=== PATIENT | female | born 1955 | race Caucasian/White ===

== ENCOUNTER → 2017-12-02 10:00 | Outpatient (POV) | payer SELFPAY | PROVIDERS: Family Provider Nurse Practitioner; PCP Family Medicine; Visit Provider Otolaryngology | DX: Z00.00 Encounter for general adult medical examination without abnormal findings (principal) ==

== ENCOUNTER → 2018-03-30 12:05 | Outpatient (CLI) | payer MEDICARE, OTHER, SELFPAY ==
--- NOTE | 2018-03-30 12:18 | XR_ITS ---
XR cervical spine 5V Ordering Physician: Lisette Walsh Patient Age: 62 years: Female HISTORY: ITS.REASON: CERVICAL NECK PAIN . HISTORY of stroke TECHNIQUE: Five-view cervical spine series. None COMPARISON : None available for comparison FINDINGS Cervical vertebral bodies are intact and the disc spaces are fairly well maintained with only borderline narrowing posteriorly at C5/6. The neural foramen widely patent on the delayed views but no significant foraminal encroachment from spurring. Prevertebral soft tissues normal. Normal alignment. Facets appear satisfactory. C1-C2 relationships normal. Dens intact. . Apices the lungs clear. IMPRESSION: ... Cervical spine intact . No significant findings. Only Borderline narrowing at posterior aspect C5-6 disc
--- NOTE | 2018-03-30 12:18 | XR_ITS ---
XR lumbar spine min 4V Ordering Physician: Lisette Walsh Patient Age: 62 years: Female HISTORY: ITS.REASON: LUMBAR BACK PAIN TECHNIQUE: 5 view lumbar spine series COMPARISON :None FINDINGS The lumbar vertebral bodies overall appear intact with no significant findings. Subtle superior endplate cavity L2 most likely merely reflects Schmorl's node rather than old superior endplate compression. The disc spaces are well-maintained throughout lumbar region. At L5 incomplete closure of the posterior elements. Spina bifida occult merely Anatomical variant. On the oblique views the pars interarticularis region somewhat elongated and it difficult to totally exclude a pars defect particularly on the right at L5. However most likely pars intact bilaterally. & There is no listhesis Mild degenerative facet changes seen at L4/5 L5/S1. Sacrum pedicles SI joints transverse processes unremarkable. IMPRESSION: Lumbar vertebral bodies overall intact with normal alignment. Disc spaces well-maintained. Minor observations noted in text.
--- NOTE | 2018-03-30 12:18 | XR_ITS ---
XR thoracic spine 3V Ordering Physician: Lisette Walsh Patient Age: 62 years: Female HISTORY: ITS.REASON: THORACIC BACK PAIN TECHNIQUE: AP lateral and swimmer's view thoracic spine COMPARISON :L-spine and C-spine from today FINDINGS . The vertebral bodies are intact. No compression fracture or lesion. The disc spaces are actually fairly well-maintained throughout T-spine. Mild accentuated kyphosis Mild Anterior marginal osteophytes throughout T-spine reflecting developing degenerative & aging changes. It most evident marginal osteophytes seen anteriorly into seen to the right at T8-9 which serves as a reference point. Small rheumatoid 12 ribs. IMPRESSION: . T-spine intact. No fracture Only minimal degenerative changes .
== END ==
PROVIDERS: PCP Nurse Practitioner; Visit Provider Nurse Practitioner
DX: M54.2 Cervicalgia (principal); M54.5 Low back pain; M54.6 Pain in thoracic spine
CPT/HCPCS: 72050; 72072; 72110

== ENCOUNTER → 2018-05-14 12:43 | Outpatient (CLI) | payer MEDICARE, OTHER, SELFPAY ==
--- NOTE | 2018-05-14 12:46 | MR_ITS ---
MR lumbar spine wo con, MR 3-d myelogram/MRCP HISTORY: LBP XYRS ago. Numbness in LT leg/ No HX back surgery. ITS.REASON: LUMBAR PAIN, THORACIC PAIN ORDERING PHYSICIAN: Lisette Walsh PATIENT AGE: 62 years Comparison: X-RAY 03-30-18 TECHNIQUE: Standard multiplanar multiecho sequences are performed without contrast. 3-D MIP and myelographic images are also rendered and reviewed FINDINGS: There is normal alignment. Spinal cord ends at the T12-L1 level. L1-L2: Unremarkable. L2-L3: Unremarkable. L3-L4: Minimal disc desiccation with slight decrease in the disc space. L4-5: Unremarkable. L5-S1: Unremarkable. Spina bifida occulta noted as seen on the plain films. No evidence of spondylolisthesis or spondylolysis. No disc herniation or canal stenosis. IMPRESSION: 1. Minimal degenerative disc disease L3-L4. 2. Otherwise essentially negative MRI of the lumbar spine
--- NOTE | 2018-05-14 12:46 | MR_ITS ---
MR thoracic spine wo con HISTORY: Mid back pain with popping. Pain starts in abdomen and goes to back. XYRS. ITS.REASON: LUMBAR PAIN, THORACIC PAIN ORDERING PHYSICIAN: Lisette Walsh PATIENT AGE: 62 years Comparison: X-RAY 03-30-18 TECHNIQUE: Standard multiplanar multiecho sequences are performed without contrast. 3-D MIP and myelographic images are also rendered and reviewed FINDINGS: There is normal alignment. No fracture or dislocation. No canal stenosis. No disc herniation. No bony destructive process. Small osteophytes are present in the mid thoracic spine anteriorly toward the right.. There is mild thoracic kyphosis is slightly exaggerated. Spinal cord has an unremarkable appearance. IMPRESSION: 1. No acute finding. No canal stenosis or disc herniation. No acute fracture. 2. There are small anterior lateral osteophytes toward the right with mild exaggeration of the thoracic kyphosis
== END ==
PROVIDERS: PCP Nurse Practitioner; Visit Provider Nurse Practitioner
DX: M54.6 Pain in thoracic spine (principal); M54.5 Low back pain
CPT/HCPCS: 72146; 72148; 76376

== ENCOUNTER 2020-03-26 19:49 | Inpatient (IN) | payer MEDICARE, OTHER, SELFPAY ==
[2020-03-26] VITALS (11 sets, daily range): BP systolic 95–131; BP diastolic 27–73; PULSE 101–107; RESP 14–17; TEMP 35.8–36.2; O2SAT 90–100; BMI 32.8; BMI 33.9
--- NOTE | 2020-03-26 20:02 | CT_ITS ---
PROCEDURE: CT HEAD/BRAIN WO CON CLINICAL INDICATION: AMS Altered mental status, altered level of consciousness, confusion, disorientation COMPARISON: CT HEADWO CT head/brain wo con from 07/17/2017 TECHNIQUE: Axial images obtained. All CT scans at the facility use one or more dose reduction, viz: automated exposure control, ma/kV adjustment per patient size (including targeted exams where dose is matched to indication, i.e. head), or iterative reconstruction technique. FINDINGS: No midline shift, mass effect, intracranial hemorrhage, hydrocephalus, or extra-axial fluid collection is evident. There is an old lacunar infarction in the subinsular region on the right with encephalomalacia change of the right temporal lobe as well as an old infarction of the right calabrese radiata with mild asymmetrical enlargement of the right ventricle felt to be due to the underlying volume loss. There is some calcification in the basal ganglia on the right. The calvarium has an unremarkable appearance. No mastoid effusion. No sinus air-fluid level. IMPRESSION: 1. Atrophy with chronic ischemic changes. 2. No acute finding. Dictated by: Tremayne De La Torre MD 03/27/2020 06:01 Tremayne De La Torre MD in [place] 03/27/2020 06:01
--- NOTE | 2020-03-26 20:02 | XR_ITS ---
PROCEDURE: XR CHEST PORTABLE CLINICAL HISTORY: AMS Altered mental status COMPARISON: CR CXR1 CHEST-PORTABLE from 01/28/2015 CR CXR1VP XR chest portable from 07/17/2017 CR CXR1VP XR chest portable from 07/17/2017 FINDINGS: Mild cardiomegaly. CABG. There is vague increased density in the right upper lobe within the apex. Developing mass or pneumonia is considered. Upright PA and lateral chest may provide further evaluation. This could also be due to summation artifact. There are atelectatic changes in the right lung base with slightly elevated right hemidiaphragm. No acute bony abnormalities. IMPRESSION: Vague increased density in the right apex which could be due to artifact pneumonia or mass. Upright PA and lateral chest may provide further evaluation. If the patient cannot stand then chest CT would be of further value. Right basilar atelectasis Dictated by: Tremayne De La Torre MD 03/27/2020 05:28 Tremayne De La Torre MD in [facility] 03/27/2020 05:28
--- NOTE | 2020-03-26 20:05 | ECG_ITS ---
APPROVED REPORT Exam: Resting ECG HR:107 bpm ECG Measurements Heart Rate 107 AXES AL 164 P 45 QRSd 94 QRS -49 QT 384 T 49 QTc 512 Conclusion Sinus tachycardia Left anterior fascicular block Left atrial abnormality Poor R wave progression with LVH criteria, unchanged from prior Abnormal ECG Electronically signed by : Hugo Dorman, 03/27/2020 19:10:11
[2020-03-26 20:11] LABS: Microscopic, Urine URINE MICROSCOPIC (MICROSCOPIC)
[2020-03-26 20:12] LABS: Appearance,Urine CLOUDY (Clear); Blood, Urine 1+ (Negative); Color,Urine YELLOW (Yellow); Glucose,Urine (UA) 3+ (Negative); Ketones,Urine 2+ (Negative); Leukocyte Esterase,Urine 1+ (Negative); Nitrate,Urine Negative (Negative); PH,Urine 5.5 (5.0-8.5); Protein,Urine 1+ (Negative); Specific Gravity, Urine 1.025 (1.005-1.030); Urobilinogen,Urine 0.2 EU/dl (0.2)
[2020-03-26 20:17] LABS: Bilirubin,Urine Negative (Negative)
[2020-03-26 20:18] LABS: WBC,Urine TNTC #/hpf (0-3)
[2020-03-26 20:22] LABS: ABG Base Excess -23.7 mmol/L (-2.4-2.3); ABG HCO3 4.9 mmhg (22.0-26.0); ABG Oxygen Saturation 97 % (90-100); ABG PCO2 14.1 mmhg (35.0-45.0); ABG PH 7.16 mmol/L (7.35-7.45); ABG PO2 104.2 mmhg (80-100); ABG TCO2 5.4 mmhg (23-27); Allen's Test Y; Oxygen R/A %; Source R/R
[2020-03-26 20:30] LABS: Basophils # 0.1 K/mm3 (0-0.2); Basophils % 0.3 % (0.1-2.0); Hematocrit 59.7 % (37.0-47.0); Hemoglobin 16.7 g/dL (12.2-16.2); Lymphocytes # 1.6 K/mm3 (0.7-4.5); Lymphocytes % 7.3 % (10-50); Mean Corpuscular Hemoglobin 29.5 pg (27.0-31.2); Mean Corpuscular Volume 105.5 fl (81-99); Mean Platelet Volume 11.4 fl (7.4-10.4); Monocytes # 1.3 K/mm3 (0.1-1.0); Monocytes % 5.8 % (1.7-9.3); Neutrophils # 18.7 K/mm3 (1.8-7.8); Neutrophils % 86.5 % (37.0-80.0); Platelet Count 411 K/mm3 (142-424); Red Blood Count 5.66 M/mm3 (4.20-5.40); White Blood Count 21.6 K/mm3 (4.8-10.8)
[2020-03-26 20:37] LABS: Acetone, Serum (Rapid) Detected (None Detect); Chloride 86 mmol/L (98-107); Sodium 135 mmol/L (136-145)
[2020-03-26 20:38] LABS: Potassium 4.4 mmoL/L (3.5-5.1)
[2020-03-26 20:38] LABS: Lactic Acid 3.5 mmol/L (0.7-2.1)
[2020-03-26 20:39] LABS: MANUAL DIFFERENTIAL MANUAL DIFFERENTIAL (MANUAL DIFF)
[2020-03-26 20:40] LABS: Alanine Aminotransferase 24 U/L (12-78); Albumin Level 4.5 g/dl (3.5-5.0); Albumin/Globulin Ratio 1.5 (1.1-1.8); Alkaline Phosphatase 238 U/L (38-126); Aspartate Amino Transferase 26 U/L (14-36); Bilirubin,Total 0.8 mg/dl (0.2-1.3); Blood Urea Nitrogen 40 mg/dl (7-17); Calcium 9.9 mg/dl (8.4-10.2); Creatinine Clearance Estimated 30 mL/min (50-200); Estimated Glomerular Filt Rate 16 ml/min (>60); GFR (African American) 20 ML/MIN (>60); Total Protein,Serum 7.5 g/dl (6.3-8.2)
[2020-03-26 20:47] LABS: C-Reactive Protein 61.7 mg/L (0-4)
[2020-03-26 20:48] LABS: Coronavirus 19 IgG Antibody Negative (Negative); Coronavirus 19 IgM Antibody Negative (Negative)
[2020-03-26 20:49] LABS: Anion Gap 48.4 mEq/L (5-15); Carbon Dioxide < 5 mmol/L (22.0-30.0)
[2020-03-26 20:50] LABS: Glucose 1127 mg/dl (74-100)
[2020-03-26 20:52] LABS: Hypochromasia 3+; Lymphocytes % 6 % (10-50); Macrocytosis 3+; Neutrophils % 84 % (42-76); Platelet Estimate Normal; Total Cells Counted 100; Toxic Granulation 2+
[2020-03-26 20:54] LABS: Erythrocyte Sedimentation Rate 2 mm/hr (0-30)
--- NOTE | 2020-03-26 20:54 | PC.NURSE ---
critical glucose 1127 notified tomas @ this time
[2020-03-26 20:57] LABS: Hemoglobin A1C > 14.0 % (4.0-6.0)
--- NOTE | 2020-03-26 21:20 | HMH.EDAMS ---
ED Disposition Clinical Impression: Severe sepsis with acute organ dysfunction, Septic shock, Renal insufficiency, Obesity (BMI 30.0-34.9) UTI (urinary tract infection) Qualifiers: Urinary tract infection type: site unspecified Hematuria presence: without hematuria Qualified Code(s): N39.0 - Urinary tract infection, site not specified DKA (diabetic ketoacidoses) Qualifiers: Diabetes mellitus type: other specified (including ASHOK) Diabetes mellitus complication detail: without coma Qualified Code(s): E13.10 - Other specified diabetes mellitus with ketoacidosis without coma Disposition: Admitted As Inpatient Condition on Discharge: Serious Instructions: DI for Altered Mental Status Referrals: Lisette Walsh APRN [Primary Care Provider] - - Critical Care Critical Care Time: Yes Attestation: On 03/26/20, the high probability of a clinically significant, sudden or life threatening deterioration of the following system(s) required my full and direct attention, intervention and personal management. The time I documented below is in addition to time spent performing reported procedures but includes the following listed in this critical care notation. Total Critical Care Time: 45 Vital system(s) involved:: Metabolic Failure, Shock (Septic) My critical care processes included: Assessment & monitoring of V/S, Initial and Re-exams, Data Review/Interpretation, Medication Orders and management, Documentation Medical Decision Making - Medical Records Medical records reviewed: Yes: I reviewed the patient's medical records. - Volodymyr Inquiry Pt receiving controlled substance: No Vital Signs: 03/26/20 20:00 03/26/20 20:30 03/26/20 20:55 Temperature 96.6 F L 96.5 F L Temperature Source Rectal Rectal Pulse Rate [Right Brachial] 106 H 102 H 101 H Respiratory Rate 14 Blood Pressure [Right Arm] 95/50 L 101/47 L 101/47 L Blood Pressure Mean [Right Arm] 65 65 65 Blood Pressure Source [Right Arm] Automatic Cuff Blood Pressure Position [Right Arm] Supine 02 Sat by Pulse Oximetry 94 L 90 L 100 Oxygen Delivery Method Room Air Room Air 03/26/20 21:30 03/26/20 21:51 03/26/20 22:00 Temperature 96.6 F L Temperature Source Rectal Pulse Rate [Right Brachial] 102 H 105 H 105 H Respiratory Rate 16 Blood Pressure [Right Arm] 103/42 L 113/27 L 124/47 L Blood Pressure Mean [Right Arm] 62 55 72 Blood Pressure Source [Right Arm] Blood Pressure Position [Right Arm] 02 Sat by Pulse Oximetry 99 100 97 Oxygen Delivery Method Room Air 03/26/20 22:30 03/26/20 22:47 Temperature 97.1 F L Temperature Source Rectal Pulse Rate [Right Brachial] 107 H 106 H Respiratory Rate 16 Blood Pressure [Right Arm] 131/62 121/61 Blood Pressure Mean [Right Arm] 85 81 Blood Pressure Source [Right Arm] Blood Pressure Position [Right Arm] 02 Sat by Pulse Oximetry 99 100 Oxygen Delivery Method Room Air - Lab Data Lab results reviewed: Yes: I reviewed the patient's lab results. Lab Results 03/26/20 19:42: Procalcitonin 0.676 03/26/20 19:42: Total Creatine Kinase 55, Troponin I 0.07 H 03/26/20 19:45: Urine Color Yellow, Urine Appearance Cloudy, Urine pH 5.5, Ur Specific [place] 1.025, Urine Protein 1+, Urine Glucose (UA) 3+, Urine Ketones 2+, Urine Blood 1+, Urine Nitrate Negative, Urine Bilirubin Negative, Urine Urobilinogen 0.2, Ur Leukocyte Esterase 1+ A, Urine RBC 10-20, Urine WBC Tntc 03/26/20 19:45: WBC 21.6 H*, RBC 5.66 H, Hgb 16.7 H, Hct 59.7 H, MCV 105.5 H, MCH 29.5, MCHC 28.0 L, RDW 13.0, Plt Count 411, MPV 11.4 H, Neut % (Auto) 86.5 H, Lymph % (Auto) 7.3 L, Harvey % (Auto) 5.8, Eos % (Auto) 0.0 L, Baso % (Auto) 0.3, Neut # (Auto) 18.7 H, Lymph # (Auto) 1.6, Harvey # (Auto) 1.3 H, Eos # (Auto) 0.0, Baso # (Auto) 0.1, Total Counted 100, Neutrophils % (Manual) 84 H, Band Neutrophils % 10.0 H, Lymphocytes % (Manual) 6 L, Toxic Granulation 2+, Platelet Estimate Normal, RBC Morphology Not Reportable, Hypochromasia 3+, Macrocytosis 3+
[2020-03-26 21:45] LABS: Creatine Kinase 55 U/L (30-135)
--- NOTE | 2020-03-26 21:50 | PC.NURSE ---
insulin drip dosing by [facility]
[2020-03-26 21:58] LABS: Troponin I 0.07 ng/ml (0.00-0.034)
[2020-03-26 21:59] LABS: Procalcitonin 0.676 ng/mL (0.0-2.0)
--- NOTE | 2020-03-26 22:27 | PC.NURSE ---
call out to dr. irene which is legal receptionist from dr. yeung.
--- NOTE | 2020-03-26 22:45 | PC.NURSE ---
Dr Nugetn speaking with Dr Kruger for admission
[2020-03-26 23:05] LABS: Reflex Lactic Add Lactic Reflex
[2020-03-26 23:36] LABS: Acetone, Serum (Rapid) Detected (None Detect)
[2020-03-26 23:38] LABS: Chloride 98 mmol/L (98-107); Potassium 4.7 mmoL/L (3.5-5.1); Sodium 143 mmol/L (136-145)
[2020-03-26 23:41] LABS: Blood Urea Nitrogen 40 mg/dl (7-17); Creatinine Clearance Estimated 33 mL/min (50-200); Estimated Glomerular Filt Rate 19 ml/min (>60); GFR (African American) 22 ML/MIN (>60); Phosphorous 5.6 mg/dl (2.5-4.5)
[2020-03-26 23:42] LABS: Calcium 9.4 mg/dl (8.4-10.2); Magnesium 2.7 mg/dl (1.6-2.3)
[2020-03-26 23:45] LABS: Lactic Acid Follow Up (RFLX 1) 3.2 mmol/L (0.7-2.1)
[2020-03-26 23:46] LABS: Anion Gap 44.7 mEq/L (5-15); Carbon Dioxide 5 mmol/L (22.0-30.0)
[2020-03-27] VITALS (21 sets, daily range): BP systolic 124–176; BP diastolic 47–96; PULSE 100–120; RESP 16–25; TEMP 36.1–37.2; O2SAT 95–100; BMI 28.3
[2020-03-27 00:02] LABS: Glucose 672 mg/dl (74-100)
--- NOTE | 2020-03-27 00:02 | PC.NURSE ---
critical glucose 672 tomas notified @ this time
--- NOTE | 2020-03-27 00:45 | PC.NURSE ---
patient up to floor via stretcher.
--- NOTE | 2020-03-27 00:56 | PC.NURSE ---
Multiple attempts were made to gain second IV access with no success, Dr Nugent notified.
[2020-03-27 01:03] LABS: Reflex Lactic (2 hrs) Add Lactic Reflex
[2020-03-27 01:12] LABS: Lactic Acid Follow up (RFLX 2) 2.8 mmol/L (0.7-2.1)
[2020-03-27 01:22] LABS: Glucose,Random 742 mg/dL (74-100)
[2020-03-27 01:24] LABS: Troponin I 0.16 ng/ml (0.00-0.034)
--- NOTE | 2020-03-27 01:28 | PC.NURSE ---
0100 glucose continues to read to high for glucometer. lab reading 742. insulin drip increased back to 6 units an hour
[2020-03-27 01:35] LABS: Anion Gap 38.8 mEq/L (5-15); Blood Urea Nitrogen 39 mg/dl (7-17); Calcium 9.3 mg/dl (8.4-10.2); Chloride 101 mmol/L (98-107); Creatinine Clearance Estimated 29 mL/min (50-200); Estimated Glomerular Filt Rate 19 ml/min (>60); GFR (African American) 24 ML/MIN (>60); Magnesium 2.6 mg/dl (1.6-2.3); Phosphorous 3.4 mg/dl (2.5-4.5); Potassium 3.8 mmoL/L (3.5-5.1); Sodium 143 mmol/L (136-145)
[2020-03-27 01:36] LABS: Carbon Dioxide 7 mmol/L (22.0-30.0)
[2020-03-27 01:37] LABS: Glucose 742 mg/dl (74-100)
--- NOTE | 2020-03-27 01:58 | PC.NURSE ---
glucomter reading hi, nab notified for blood draw. insulin drip incraese by 50% per protocol. insulin drip now at 9 units/hr. patient waking spontaneously and moaning. quickly goes back to sleep .
[2020-03-27 02:24] LABS: Glucose,Random 618 mg/dL (74-100)
--- NOTE | 2020-03-27 03:10 | PC.NURSE ---
0300 fsbs 572 insulin drip increased 50% per protocol. drip now at 13.5 units. lab notifie for draw for glucose over 500
[2020-03-27 03:42] LABS: Glucose,Random 587 mg/dL (74-100)
[2020-03-27 03:49] LABS: Troponin I 0.21 ng/ml (0.00-0.034)
--- NOTE | 2020-03-27 03:56 | PC.NURSE ---
fsbs 401, insulin drip decreased back to 9 due to drop of 171 points since last hour, but still greater than 250.
[2020-03-27 04:00] LABS: POC Glucose,Bedside 572 (70-110)
[2020-03-27 04:00] LABS: POC Glucose,Bedside 401 (70-110)
--- NOTE | 2020-03-27 04:02 | PC.NURSE ---
0400 fsbs 401 insulin drip decreased by 50% per policy for drop in sugar of 171 since last hour. insulin drip now at 7
[2020-03-27 05:21] LABS: Anion Gap 24.7 mEq/L (5-15); Blood Urea Nitrogen 39 mg/dl (7-17); Calcium 9.1 mg/dl (8.4-10.2); Carbon Dioxide 14 mmol/L (22.0-30.0); Chloride 111 mmol/L (98-107); Creatinine Clearance Estimated 35 mL/min (50-200); Estimated Glomerular Filt Rate 24 ml/min (>60); GFR (African American) 29 ML/MIN (>60); Potassium 3.7 mmoL/L (3.5-5.1); Sodium 146 mmol/L (136-145)
[2020-03-27 05:23] LABS: Glucose 406 mg/dl (74-100)
[2020-03-27 05:24] LABS: POC Glucose,Bedside 373 (70-110)
--- NOTE | 2020-03-27 06:03 | PC.NURSE ---
0500 fsbs 373, insulin drip increased by 50 %, drip now infusing at 10 units/hr.
--- NOTE | 2020-03-27 06:05 | PC.NURSE ---
0600 fsbs reading 340, insulin drip increased to 50% per protocol, insulin drip now at 15 units/hr
[2020-03-27 06:55] LABS: POC Glucose,Bedside 340 (70-110)
[2020-03-27 06:55] LABS: POC Glucose,Bedside 294 (70-110)
--- NOTE | 2020-03-27 07:03 | PC.NURSE ---
dr. witt at bedside, patient assessed chart reviewed. leave insulin drip at 15 this hour.
--- NOTE | 2020-03-27 07:07 | HMH.HP ---
*Admission Date: 03/26/20 *Chief complaint: Mental status change *History of present illness: 64-year-old female with history of diabetes brought to the emergency department via EMS with mental status changes at home and physical decline. Patient was found to be profoundly hypoglycemic and acidotic along with a urinary tract infection. Patient was diagnosed with septic shock and treated with fluid boluses and begun on insulin drip. Patient was admitted with fluids, insulin drip, IV antibiotics. Nursing staff reports this morning patient has improved since arrival to the floor. Patient will now awaken to her name and moans in response to questions. Nursing reports patient has nodded her head as an affirmative to some questions. Patient is unable to provide me any additional history this morning. History is taken from the ER note [facility] History I have reviewed the patient's past medical history: Yes Medical History: Reports:: Anxiety, Asthma, Depression, Diabetes Mellitus Type 2, Hyperlipidemia, Hypertension, Migraine Denies:: Diabetes Mellitus Type 1 *Have you ever received a pneumonia vaccine?: No *Have you received a flu vaccine this season?: No Other Medical History: Reports: Arthritis Other Surgeries: Yes: Hysterectomy-Total, Sinus Surgery Amputation: No Fractures: No - *Social History Last grade of school completed: High school graduate Smoking Status: Current every day smoker Tobacco Type: cigarettes # Packs/Day (cigarettes): 1 Alcohol Intake: never Alcohol Intake Frequency:: holidays/special occasions only Substance Use Type: denies use *Occupational Status:: retired *Travel in the last 8 weeks: None - Psychiatric History Pschychiatric History:: Reports:: Anxiety, Depression Family Hx:: Unable to obtain Review of Systems - Review of Systems Review of systems:: unable to obtain Meds Home Medications Medication Instructions Recorded Confirmed Type amitriptyline 10 mg tablet 25 mg PO ONCE 05/21/17 03/26/20 History Atorvastatin Calcium [Atorvastatin 80 mg PO DAILY 08/10/18 03/26/20 History 80mg Tab] Furosemide [Furosemide 20mg Tab*] 20 mg PO DAILY 08/10/18 03/26/20 History Meclizine HCl [Meclizine 25mg Tab] 25 mg PO HS 08/10/18 03/26/20 History Oxybutynin Chloride [Oxybutynin 15 mg PO DAILY 08/10/18 03/26/20 History Chloride ER] Pantoprazole Sodium [Protonix 40mg 40 mg PO HS 08/10/18 03/26/20 History tablet] Ropinirole HCl 4 mg PO DAILY 08/10/18 03/26/20 History Sucralfate [Sucralfate 1gm 1 g PO QID 08/10/18 03/26/20 History Tab] Tramadol HCl [Ultram 50mg 50 mg PO HS PRN 08/10/18 03/26/20 History tablet] buPROPion HCL [Wellbutrin SR 150mg 150 mg PO TID 08/10/18 03/26/20 History Tablet] Cholecalciferol (Vitamin D3) 1,000 unit PO DAILY 03/26/20 03/26/20 History [Vitamin D3 1,000 Unit Cap] Gabapentin [Gabapentin 300mg Cap] 300 mg PO BID 03/26/20 03/26/20 History Insulin Aspart Prot/Insuln Asp 35 unit SQ HS 03/26/20 03/26/20 History [Novolog Mix 70/30 Flexpen 100 Units/mL 3mL] Insulin Aspart Prot/Insuln Asp 55 unit SQ DAILY 03/26/20 03/26/20 History [Novolog Mix 70/30 Flexpen 100 Units/mL 3mL] Memantine HCl [Memantine 5mg 5 mg PO DAILY 03/26/20 03/26/20 History Tablet] Metoprolol Tartrate [Lopressor 25 mg PO BID 03/26/20 03/26/20 History 25mg tablet] Rivaroxaban [Xarelto 20mg Tablet*] 20 mg PO DAILY 03/26/20 03/26/20 History Allergies Allergy/AdvReac Type Severity Reaction Status Date / Time erythromycin base Allergy Unknown Verified 07/17/17 20:45 [ERYTHROMYCIN BASE] Penicillins [PENICILLINS] Allergy Unknown Verified 07/17/17 20:45 Sulfa (Sulfonamide Allergy Unknown Verified 07/17/17 20:45 Antibiotics) [SULFA (SULFONAMIDE ANTIBIOTICS)] sulfamethoxazole Allergy Unknown Verified 07/17/17 20:45 [From BACTRIM] tetracycline [TETRACYCLINE] Allergy Unknown Verified 07/17/17 20:45 trimethoprim [From BACTRIM] Allergy Un
--- NOTE | 2020-03-27 07:20 | P.CONPHA_ITS ---
[facility] Pharmacy VTE Monitoring - Patient Demographics Admission date: 03/26/20 Report Date: 03/27/20 Time: 07:20 Allergies/Adverse Reactions: Patient Allergies erythromycin base [ERYTHROMYCIN BASE] Allergy (Unknown, Verified 07/17/17 20:45) Penicillins [PENICILLINS] Allergy (Unknown, Verified 07/17/17 20:45) Sulfa (Sulfonamide Antibiotics) [SULFA (SULFONAMIDE ANTIBIOTICS)] Allergy (Unknown, Verified 07/17/17 20:45) sulfamethoxazole [From BACTRIM] Allergy (Unknown, Verified 07/17/17 20:45) tetracycline [TETRACYCLINE] Allergy (Unknown, Verified 07/17/17 20:45) trimethoprim [From BACTRIM] Allergy (Unknown, Verified 07/17/17 20:45) Height: 1.68 m Weight: 79.946 kg Patient Problems: Current Active Problems Diabetic keto-acidosis (Acute) UTI (urinary tract infection) (Acute) Dehydration (Acute) Severe sepsis with acute organ dysfunction (Acute) Renal insufficiency (Acute) Obesity (BMI 30.0-34.9) (Acute) Acute kidney injury (Acute) - VTE Risk Labs: VTE Related Lab Results Hgb 16.7 g/dL (12.2-16.2) H 03/26/20 19:45 Hct 59.7 % (37.0-47.0) H 03/26/20 19:45 Plt Count 411 K/mm3 (142-424) 03/26/20 19:45 BUN 39 mg/dl (7-17) H 03/27/20 04:55 Creatinine 2.10 mg/dl (0.52-1.04) H 03/27/20 04:55 Estimated Creat Clear 35 mL/min (50-200) 03/27/20 04:55 - Prophylaxis VTE Prophylaxis Ordered?: Yes Types of VTE Prophylaxis: TEDS Knee High, Pharmacological Location of Applied Device: Bilateral Lower Extremeties Pharmacologic Type: Other (XARELTO)
[2020-03-27 07:54] LABS: POC Glucose,Bedside 244 (70-110)
--- NOTE | 2020-03-27 07:57 | PC.NURSE ---
admission was limited since patient is unable to answer questions at this time
--- NOTE | 2020-03-27 08:51 | PC.NURSE ---
no change in insulin drip at this time remains at 15units/hr. patient still unable to answer questions. attempted to provide oral care. patient did purse lips and clench mouth shut during this time but some dried blood swiped from lips. mouth moisturizer applied. turned her to r side. refused to attempt a sip of water. will be unable to administer meds at this time until she becomes more alert. vitals are stable will continue to monitor.
[2020-03-27 08:56] LABS: POC Glucose,Bedside 228 (70-110)
[2020-03-27 09:29] LABS: Chloride 117 mmol/L (98-107)
[2020-03-27 09:30] LABS: Potassium 3.4 mmoL/L (3.5-5.1)
[2020-03-27 09:33] LABS: Anion Gap 16.4 mEq/L (5-15); Blood Urea Nitrogen 39 mg/dl (7-17); Calcium 9.2 mg/dl (8.4-10.2); Carbon Dioxide 21 mmol/L (22.0-30.0); Creatinine Clearance Estimated 38 mL/min (50-200); Estimated Glomerular Filt Rate 27 ml/min (>60); GFR (African American) 32 ML/MIN (>60); Glucose 228 mg/dl (74-100)
[2020-03-27 09:36] LABS: Sodium 151 mmol/L (136-145)
--- NOTE | 2020-03-27 09:42 | PC.NURSE ---
reported critical sodium to md at this time and chloride level that was called from lab. also updated md that we were about to switch fluids over to d5ns soon (fsbs at 150) since fsbs has steadily dropped and is now 183. he is also aware we are unable to give po meds at this time. patient continues to moan in response and not following commands.
[2020-03-27 09:45] LABS: POC Glucose,Bedside 183 (70-110)
--- NOTE | 2020-03-27 10:30 | HMH.PHAINT ---
MEDICATION RECONCILIATION COMPLETED ON PATIENT USING EXTERNAL FILL HISTORY FROM PHARMACY AND LIST FROM MD OFFICE. -HEIKE ROUSED
[2020-03-27 10:33] LABS: POC Glucose,Bedside 165 (70-110)
--- NOTE | 2020-03-27 11:08 | PC.NURSE ---
md did state to go ahead and switch the fluids to d5ns. there has been no change in insulin drip per protocol. still at 15 units. did call and speak with nurse at md office. patient does have a history of 2 past strokes with generally weak l sided deficits. there has been no change necessarily in patient at this time, but now that she is wide awake she continues to moan in response to things instead of verbalizing, and is noted to be moving the right side but not the left. she is still not following commands that staff gives patient. according to daughter over past couple of days patient had started to fall more at home.
[2020-03-27 11:16] LABS: POC Glucose,Bedside 162 (70-110)
[2020-03-27 11:16] LABS: POC Glucose,Bedside 163 (70-110)
--- NOTE | 2020-03-27 11:57 | PC.NURSE ---
noted last acetone was placed in at [address] in an acetone order for now.
--- NOTE | 2020-03-27 12:23 | PC.NURSE ---
daughter is at bedside. she states that patient seems about baseline as far as how she normally is when she gets sick with dka. she stated she does a lot of moaning and unresponsiveness for the first day and gradually goes back to baseline. while daughter was in room did get patient to say hi, and acknowledge her. daughter didn't voice any concerns after seeing patient.
--- NOTE | 2020-03-27 13:35 | PC.NURSE ---
lab asked if they could use blood they just jessica on patient for the mag, phos, and bmp. ordered for 1315. stated they jessica it around 1300.
[2020-03-27 13:43] LABS: Chloride 117 mmol/L (98-107)
[2020-03-27 13:44] LABS: Potassium 3.3 mmoL/L (3.5-5.1)
[2020-03-27 13:46] LABS: Anion Gap 17.3 mEq/L (5-15); Blood Urea Nitrogen 39 mg/dl (7-17); Carbon Dioxide 20 mmol/L (22.0-30.0); Creatinine Clearance Estimated 38 mL/min (50-200); Estimated Glomerular Filt Rate 27 ml/min (>60); GFR (African American) 32 ML/MIN (>60)
[2020-03-27 13:47] LABS: Calcium 9.1 mg/dl (8.4-10.2); Glucose 228 mg/dl (74-100); Magnesium 2.4 mg/dl (1.6-2.3)
[2020-03-27 13:57] LABS: POC Glucose,Bedside 163 (70-110)
[2020-03-27 13:57] LABS: POC Glucose,Bedside 173 (70-110)
[2020-03-27 13:57] LABS: POC Glucose,Bedside 165 (70-110)
[2020-03-27 13:59] LABS: Phosphorous 0.7 mg/dl (2.5-4.5); Sodium 151 mmol/L (136-145)
--- NOTE | 2020-03-27 14:02 | PC.NURSE ---
patient sodium remains 151. md is aware of patient sodium level
[2020-03-27 14:03] LABS: Acetone, Serum (Rapid) Detected (None Detect)
--- NOTE | 2020-03-27 15:35 | PC.NURSE ---
patient has been sleeping off and on most of day. when daughter was here was more awake. starting to move left arm more now. has been answering yes or no questions, but is still drowsy. still breathing fast. would not take a sip of water so no po meds at this time. phosphorus level given to md. bp with automatic cuff has been slightly elevated. manually it had been 140/80s. patient is warm. rectal temp of 99.0. has remained tachy. daughter felt patient was at baseline considering her condition. no complaints. did not want to set up a password at this time, stated if patient came and visited to ask him. lovenox injection give. remains at 15units/hr of insulin, but is also on d5ns with 20k per md order. just switched fluids over remains at 150ml/hr. continues to have acetone. placed orders for next bmp and acetone level per written protocol. daughter voiced concerns about patient possibly needing placement, but would readdress once discussion of possible discharge. some moaning still noted at times when asked if okay she nods yes. turned every 2 hours. some dried blood on tongue, so oral care provided frequently. vitals stable will continue to monitor.
--- NOTE | 2020-03-27 16:05 | PC.NURSE ---
decreased insulin drip to 7 units at this time when fsbs dropped to 132. per protocol. will continue to monitor.
[2020-03-27 16:20] LABS: POC Glucose,Bedside 132 (70-110)
--- NOTE | 2020-03-27 16:31 | PC.NURSE ---
updated on patients care today. let him know of elevated bp as well. no concerns voiced by md smalls this time. okay with the rate of d5ns with 20k going at 150. updated on last fsbs. no new ordrs currently stated he may put in some prns for bp.
[2020-03-27 16:37] LABS: POC Glucose,Bedside 150 (70-110)
--- NOTE | 2020-03-27 17:21 | PC.NURSE ---
md placed a pharmacy communcation in on patient for sodium phosphate iv 20mmol over 8 hours. could not find in omni. contacted pharmacy who stated they would look in to it and call back. they did not believed the sodium phos was available iv. md also ordered to repeat dose if rechec of phosphate was less than 2 at 1am
[2020-03-27 18:05] LABS: Anion Gap 14.4 mEq/L (5-15); Blood Urea Nitrogen 46 mg/dl (7-17); Calcium 9.1 mg/dl (8.4-10.2); Carbon Dioxide 16 mmol/L (22.0-30.0); Creatinine Clearance Estimated 48 mL/min (50-200); Estimated Glomerular Filt Rate 35 ml/min (>60); GFR (African American) 42 ML/MIN (>60); Glucose 137 mg/dl (74-100)
--- NOTE | 2020-03-27 18:09 | PC.NURSE ---
decreased insulin gtt down to 3 units at this time. fsbs 124
--- NOTE | 2020-03-27 18:12 | PC.NURSE ---
pharmacy called back stating someone would be in to mix the sodium phosphate.
--- NOTE | 2020-03-27 18:21 | PC.NURSE ---
stated to cancel 1am phosphorus level and to just get one with am labs
[2020-03-27 18:31] LABS: Chloride 130 mmol/L (98-107); Potassium 6.4 mmoL/L (3.5-5.1); Sodium 154 mmol/L (136-145)
--- NOTE | 2020-03-27 18:37 | PC.NURSE ---
relayed to md patient potassium 6.4 and sodium 154
--- NOTE | 2020-03-27 18:49 | PC.NURSE ---
md stated to switch fluids to d5 1/2 ns at 125ml/hr. also stated to give 1 dose of iv lasix 40mg.
[2020-03-27 21:40] LABS: Chloride 121 mmol/L (98-107)
[2020-03-27 21:41] LABS: Potassium 3.7 mmoL/L (3.5-5.1)
[2020-03-27 21:43] LABS: Blood Urea Nitrogen 41 mg/dl (7-17); Creatinine Clearance Estimated 48 mL/min (50-200); Estimated Glomerular Filt Rate 35 ml/min (>60); GFR (African American) 42 ML/MIN (>60)
[2020-03-27 21:44] LABS: Anion Gap 13.7 mEq/L (5-15); Calcium 8.9 mg/dl (8.4-10.2); Carbon Dioxide 21 mmol/L (22.0-30.0); Glucose 284 mg/dl (74-100)
[2020-03-27 21:55] LABS: Sodium 152 mmol/L (136-145)
[2020-03-28] VITALS (23 sets, daily range): BP systolic 143–176; BP diastolic 47–95; PULSE 100–113; RESP 16–21; TEMP 36.5–37.3; O2SAT 93–97; BMI 29.1
[2020-03-28 00:24] LABS: POC Glucose,Bedside 193 (70-110)
[2020-03-28 00:24] LABS: POC Glucose,Bedside 124 (70-110)
[2020-03-28 00:24] LABS: POC Glucose,Bedside 175 (70-110)
[2020-03-28 00:24] LABS: POC Glucose,Bedside 120 (70-110)
[2020-03-28 00:24] LABS: POC Glucose,Bedside 141 (70-110)
[2020-03-28 00:24] LABS: POC Glucose,Bedside 202 (70-110)
[2020-03-28 00:24] LABS: POC Glucose,Bedside 204 (70-110)
[2020-03-28 00:24] LABS: POC Glucose,Bedside 229 (70-110)
[2020-03-28 01:06] LABS: POC Glucose,Bedside 138 (70-110)
[2020-03-28 01:37] LABS: Anion Gap 10.1 mEq/L (5-15); Blood Urea Nitrogen 38 mg/dl (7-17); Calcium 8.6 mg/dl (8.4-10.2); Carbon Dioxide 24 mmol/L (22.0-30.0); Chloride 122 mmol/L (98-107); Creatinine Clearance Estimated 56 mL/min (50-200); Estimated Glomerular Filt Rate 41 ml/min (>60); GFR (African American) 50 ML/MIN (>60); Glucose 164 mg/dl (74-100); Potassium 3.1 mmoL/L (3.5-5.1)
[2020-03-28 01:43] LABS: Sodium 153 mmol/L (136-145)
[2020-03-28 01:48] LABS: Acetone, Serum (Rapid) Small (None Detect)
--- NOTE | 2020-03-28 05:01 | PC.NURSE ---
She continues on the insulin gtt. Is not following commands at this time but will follow movement in room with her eyes. She has moaned out several times but has not spoken. Being turned and repositioned q 2 hours. Urine in f/c is yellow, clear. Has received hydralazine once for per BP.
[2020-03-28 05:16] LABS: POC Glucose,Bedside 179 (70-110)
[2020-03-28 05:16] LABS: POC Glucose,Bedside 105 (70-110)
[2020-03-28 05:16] LABS: POC Glucose,Bedside 129 (70-110)
[2020-03-28 05:16] LABS: POC Glucose,Bedside 111 (70-110)
[2020-03-28 05:16] LABS: POC Glucose,Bedside 144 (70-110)
[2020-03-28 06:32] LABS: Basophils % 0.2 % (0.1-2.0); Eosinophils # 0.1 K/mm3 (0.0-0.4); Eosinophils % 0.6 % (0.1-12.0); Hematocrit 45.9 % (37.0-47.0); Hemoglobin 15.5 g/dL (12.2-16.2); Lymphocytes # 2.1 K/mm3 (0.7-4.5); Lymphocytes % 10.2 % (10-50); Mean Corpuscular HGB Conc 33.7 g/dL (31.8-35.4); Mean Corpuscular Hemoglobin 29.6 pg (27.0-31.2); Mean Platelet Volume 10.6 fl (7.4-10.4); Monocytes # 1.1 K/mm3 (0.1-1.0); Monocytes % 5.3 % (1.7-9.3); Neutrophils # 17.1 K/mm3 (1.8-7.8); Neutrophils % 83.7 % (37.0-80.0); Platelet Count 265 K/mm3 (142-424); Red Blood Count 5.22 M/mm3 (4.20-5.40); Red Cell Distribution Width 14.3 % (11.5-17.5); White Blood Count 20.5 K/mm3 (4.8-10.8)
[2020-03-28 06:35] LABS: POC Glucose,Bedside 182 (70-110)
[2020-03-28 06:35] LABS: POC Glucose,Bedside 192 (70-110)
[2020-03-28 06:42] LABS: MANUAL DIFFERENTIAL MANUAL DIFFERENTIAL (MANUAL DIFF)
[2020-03-28 06:48] LABS: Chloride 122 mmol/L (98-107); Potassium 3.4 mmoL/L (3.5-5.1)
[2020-03-28 06:51] LABS: Blood Urea Nitrogen 35 mg/dl (7-17); Carbon Dioxide 21 mmol/L (22.0-30.0); Creatinine Clearance Estimated 62 mL/min (50-200); Estimated Glomerular Filt Rate 45 ml/min (>60); GFR (African American) 55 ML/MIN (>60)
[2020-03-28 06:52] LABS: Calcium 8.5 mg/dl (8.4-10.2); Glucose 206 mg/dl (74-100)
[2020-03-28 06:55] LABS: Anion Gap 14.4 mEq/L (5-15); Sodium 154 mmol/L (136-145)
[2020-03-28 07:24] LABS: Phosphorous 1.6 mg/dl (2.5-4.5)
--- NOTE | 2020-03-28 07:26 | PC.NURSE ---
notified Dr. Kimble that phos is 1.6. No new orders at this time.
--- NOTE | 2020-03-28 07:27 | HMH.ACPN2 ---
Internal Medicine - PN: Subj *Date: 03/28/20 *Time: 07:27 Interval history: No acute events overnight. Patient has become more alert. Blood sugars have remained between 102 100 on D5 half-normal saline with potassium chloride. Patient was administered IV potassium phosphate yesterday due to severe hypophosphatemia. Blood cultures are suspicious for MRSA. Patient was started on vancomycin overnight. Exam Vital signs and Labs for Last 24 Hours: Temp Pulse Resp BP Pulse Ox 98.5 F 109 H 20 161/66 H 96 03/28/20 04:00 03/28/20 07:01 03/28/20 00:00 03/28/20 07:01 03/28/20 07:01 Laboratory Results - last 24 hr 03/26/20 19:45: Urine Color Yellow, Urine Appearance Cloudy, Urine pH 5.5, Ur Specific [place] 1.025, Urine Protein 1+, Urine Glucose (UA) 3+, Urine Ketones 2+, Urine Blood 1+, Urine Nitrate Negative, Urine Bilirubin Negative, Urine Urobilinogen 0.2, Ur Leukocyte Esterase 1+ A, Urine RBC 10-20, Urine WBC Tntc 03/27/20 07:42: POC Glucose 244 H 03/27/20 08:40: POC Glucose 228 H 03/27/20 09:11: Sodium 151 H*, Potassium 3.4 L, Chloride 117 H, Carbon Dioxide 21 L D, Anion Gap 16.4 H, BUN 39 H, Creatinine 1.90 H, Estimated Creat Clear 38, Estimated GFR 27 L, Est GFR ( Amer) 32 L, Glucose 228 H D, Calcium 9.2 03/27/20 09:38: POC Glucose 183 H 03/27/20 10:12: POC Glucose 165 H 03/27/20 10:31: POC Glucose 162 H 03/27/20 10:58: POC Glucose 163 H 03/27/20 11:48: POC Glucose 173 H 03/27/20 12:45: POC Glucose 165 H 03/27/20 13:00: Sodium 151 H*, Potassium 3.3 L, Chloride 117 H, Carbon Dioxide 20 L, Anion Gap 17.3 H, BUN 39 H, Creatinine 1.90 H, Estimated Creat Clear 38, Estimated GFR 27 L, Est GFR ( Amer) 32 L, Glucose 228 H, Calcium 9.1, Phosphorus 0.7 L D, Magnesium 2.4 H 03/27/20 13:00: Acetone Level Detected 03/27/20 13:44: POC Glucose 163 H 03/27/20 14:49: POC Glucose 150 H 03/27/20 16:03: POC Glucose 132 H 03/27/20 17:09: POC Glucose 141 H 03/27/20 17:35: Sodium 154 H*, Potassium 6.4 H* D, Chloride 130 H, Carbon Dioxide 16 L, Anion Gap 14.4, BUN 46 H, Creatinine 1.50 H D, Estimated Creat Clear 48, Estimated GFR 35 L, Est GFR ( Amer) 42 L D, Glucose 137 H D, Calcium 9.1 03/27/20 18:08: POC Glucose 124 H 03/27/20 18:57: POC Glucose 120 H 03/27/20 19:54: POC Glucose 204 H 03/27/20 20:58: POC Glucose 193 H 03/27/20 21:11: Sodium 152 H*, Potassium 3.7 D, Chloride 121 H, Carbon Dioxide 21 L D, Anion Gap 13.7, BUN 41 H, Creatinine 1.50 H, Estimated Creat Clear 48, Estimated GFR 35 L, Est GFR ( Amer) 42 L, Glucose 284 H D, Calcium 8.9 03/27/20 21:49: POC Glucose 229 H 03/27/20 22:59: POC Glucose 202 H 03/28/20 00:03: POC Glucose 175 H 03/28/20 00:57: POC Glucose 138 H 03/28/20 01:15: Magnesium 2.0 D 03/28/20 01:15: Acetone Level Small 03/28/20 01:15: Sodium 153 H*, Potassium 3.1 L, Chloride 122 H, Carbon Dioxide 24, Anion Gap 10.1, BUN 38 H, Creatinine 1.30 H, Estimated Creat Clear 56, Estimated GFR 41 L, Est GFR ( Amer) 50 L, Glucose 164 H D, Calcium 8.6 03/28/20 02:01: POC Glucose 129 H 03/28/20 02:54: POC Glucose 105 03/28/20 03:33: POC Glucose 111 H 03/28/20 04:11: POC Glucose 144 H 03/28/20 04:56: POC Glucose 179 H 03/28/20 05:39: WBC 20.5 H*, RBC 5.22, Hgb 15.5, Hct 45.9, MCV 88.0, MCH 29.6, MCHC 33.7, RDW 14.3, Plt Count 265 D, MPV 10.6 H, Neut % (Auto) 83.7 H, Lymph % (Auto) 10.2, [place] % (Auto) 5.3, Eos % (Auto) 0.6, Baso % (Auto) 0.2, Neut # (Auto) 17.1 H, Lymph # (Auto) 2.1, [place] # (Auto) 1.1 H, Eos # (Auto) 0.1, Baso # (Auto) 0.0 03/28/20 05:39: Sodium 154 H*, Potassium 3.4 L, Chloride 122 H, Carbon Dioxide 21 L, Anion Gap 14.4, BUN 35 H, Creatinine 1.20 H, Estimated Creat Clear 62, Estimated GFR 45 L, Est GFR ( Amer) 55 L, Glucose 206 H D, Calcium 8.5 03/28/20 05:39: Phosphorus 1.6 L D 03/28/20 05:51: POC Glucose 182 H 03/28/20 06:28: POC Glucose 192 H I & O for Last 24 hours: Intake & Output 03/25/20 03/26/20 03/27/20 03/28/20 11:59 11:59 11:59 11:59 Intake Total 3000 / 3000
[2020-03-28 07:35] LABS: Lymphocytes % 23 % (10-50); Monocytes % 2 % (2-9); Neutrophils % 75 % (42-76); Platelet Estimate Normal; RBC Morphology Normal; Total Cells Counted 100
--- NOTE | 2020-03-28 08:00 | PC.NURSE ---
FSBS 160. Will cont Insulin gtt @ 12units/hr per insulin gtt protocol.
--- NOTE | 2020-03-28 09:00 | PC.NURSE ---
30units Lispro subq pen given in LUE.
--- NOTE | 2020-03-28 09:22 | HMH.PHACONS ---
- Pharmacy Consult Date: 03/28/20 Time: 09:22 Referring provider: DR. SANDOVAL Reason for Consult:: VANCOMYCIN DOSING Allergies and ADEs:: Allergies Allergy/AdvReac Type Severity Reaction Status Date / Time erythromycin base Allergy Unknown Verified 07/17/17 20:45 [ERYTHROMYCIN BASE] Penicillins [PENICILLINS] Allergy Unknown Verified 07/17/17 20:45 Sulfa (Sulfonamide Allergy Unknown Verified 07/17/17 20:45 Antibiotics) [SULFA (SULFONAMIDE ANTIBIOTICS)] sulfamethoxazole Allergy Unknown Verified 07/17/17 20:45 [From BACTRIM] tetracycline [TETRACYCLINE] Allergy Unknown Verified 07/17/17 20:45 trimethoprim [From BACTRIM] Allergy Unknown Verified 07/17/17 20:45 Home Medications:: Home Medications Medication Instructions Recorded Confirmed Type Atorvastatin Calcium [Atorvastatin 80 mg PO DAILY 08/10/18 03/26/20 History 80mg Tab] Furosemide [Furosemide 20mg Tab*] 20 mg PO DAILY 08/10/18 03/26/20 History Meclizine HCl [Meclizine 25mg Tab] 25 mg PO DAILYP PRN 08/10/18 03/27/20 History Oxybutynin Chloride [Oxybutynin 15 mg PO DAILY 08/10/18 03/26/20 History Chloride ER] Pantoprazole Sodium [Protonix 40mg 40 mg PO HS 08/10/18 03/26/20 History tablet] Ropinirole HCl 4 mg PO HS 08/10/18 03/27/20 History Sucralfate [Sucralfate 1gm 1 g PO QID 08/10/18 03/26/20 History Tab] Tramadol HCl [Ultram 50mg 50 mg PO Q6HP PRN 08/10/18 03/27/20 History tablet] buPROPion HCL [Wellbutrin SR 150mg 150 mg PO DAILY 08/10/18 03/27/20 History Tablet] Cholecalciferol (Vitamin D3) 1,000 unit PO DAILY 03/26/20 03/26/20 History [Vitamin D3 1,000 Unit Cap] Gabapentin [Gabapentin 300mg Cap] 300 mg PO BID 03/26/20 03/26/20 History Insulin Aspart Prot/Insuln Asp 35 unit SQ HS 03/26/20 03/26/20 History [Novolog Mix 70/30 Flexpen 100 Units/mL 3mL] Insulin Aspart Prot/Insuln Asp 55 unit SQ DAILY 03/26/20 03/26/20 History [Novolog Mix 70/30 Flexpen 100 Units/mL 3mL] Memantine HCl [Memantine 5mg 10 mg PO BID 03/26/20 03/27/20 History Tablet] Metoprolol Tartrate [Lopressor 12.5 mg PO BID 03/26/20 03/27/20 History 25mg tablet] Rivaroxaban [Xarelto 20mg Tablet*] 20 mg PO QPMWM 03/26/20 03/27/20 History Amitriptyline HCl [Elavil 25mg 25 mg PO DAILY 03/27/20 03/27/20 History tablet] Buspirone HCl [Buspar 10mg 10 mg PO TID 03/27/20 03/27/20 History tablet] Height: 1.68 m Weight: 82.157 kg Laboratory Results:: Laboratory Results - last 24 hr 03/26/20 19:45: Urine Color Yellow, Urine Appearance Cloudy, Urine pH 5.5, Ur Specific [place] 1.025, Urine Protein 1+, Urine Glucose (UA) 3+, Urine Ketones 2+, Urine Blood 1+, Urine Nitrate Negative, Urine Bilirubin Negative, Urine Urobilinogen 0.2, Ur Leukocyte Esterase 1+ A, Urine RBC 10-20, Urine WBC Tntc 03/27/20 09:11: Sodium 151 H*, Potassium 3.4 L, Chloride 117 H, Carbon Dioxide 21 L D, Anion Gap 16.4 H, BUN 39 H, Creatinine 1.90 H, Estimated Creat Clear 38, Estimated GFR 27 L, Est GFR ( Amer) 32 L, Glucose 228 H D, Calcium 9.2 03/27/20 09:38: POC Glucose 183 H 03/27/20 10:12: POC Glucose 165 H 03/27/20 10:31: POC Glucose 162 H 03/27/20 10:58: POC Glucose 163 H 03/27/20 11:48: POC Glucose 173 H 03/27/20 12:45: POC Glucose 165 H 03/27/20 13:00: Sodium 151 H*, Potassium 3.3 L, Chloride 117 H, Carbon Dioxide 20 L, Anion Gap 17.3 H, BUN 39 H, Creatinine 1.90 H, Estimated Creat Clear 38, Estimated GFR 27 L, Est GFR ( Amer) 32 L, Glucose 228 H, Calcium 9.1, Phosphorus 0.7 L D, Magnesium 2.4 H 03/27/20 13:00: Acetone Level Detected 03/27/20 13:44: POC Glucose 163 H 03/27/20 14:49: POC Glucose 150 H 03/27/20 16:03: POC Glucose 132 H 03/27/20 17:09: POC Glucose 141 H 03/27/20 17:35: Sodium 154 H*, Potassium 6.4 H* D, Chloride 130 H, Carbon Dioxide 16 L, Anion Gap 14.4, BUN 46 H, Creatinine 1.50 H D, Estimated Creat Clear 48, Estimated GFR 35 L, Est GFR ( Amer) 42 L D, Glucose 137 H D, Calcium 9.1 03/27/20
--- NOTE | 2020-03-28 09:35 | PC.NURSE ---
insulin gtt is now OFF. FSBS 129. Dr. Kimble updated.
[2020-03-28 11:24] LABS: POC Glucose,Bedside 132 (70-110)
[2020-03-28 11:24] LABS: POC Glucose,Bedside 129 (70-110)
[2020-03-28 11:24] LABS: POC Glucose,Bedside 160 (70-110)
[2020-03-28 14:14] LABS: Magnesium 1.8 mg/dl (1.6-2.3)
--- NOTE | 2020-03-28 16:52 | PC.NURSE ---
pt passed bedside swallow test. Dr. Kimble update. Diabetic diet ordered.
[2020-03-28 17:40] LABS: POC Glucose,Bedside 283 (70-110)
--- NOTE | 2020-03-28 18:28 | PC.NURSE ---
shift note: Pt has become more alert and oriented as the day went on. She is answering questions and can tell me what she wants in a few words. Tolerates liquids. Fed her a bite of mashed potatoes for supper and she reports being nauseated. Gave her Zofran which relieved her symptoms. Falcon catheter noted. Is able to reposition herself in bed. Left arm is weaker. She is still able to raise left arm for me. Left facial droop noted. Oral care provided. Bed alarm on. Insulin gtt has been OFF since this morning. She required SSI coverage this evening secondary to FSBS 283. MIVF have been discontinued. She sat in the chair for aprox 1hr this afternoon. Has been tachy on tele (HR 100-110). Has required 2 doses of Hydralazine 10mg IV for SBP>160. No other issues noted. Will relay info to nightshift RN.
--- NOTE | 2020-03-28 18:44 | PC.NURSE ---
@ BS and reports that pt refuses to eat @ home most days
[2020-03-28 20:18] LABS: POC Glucose,Bedside 296 (70-110)
[2020-03-29] VITALS (9 sets, daily range): BP systolic 147–173; BP diastolic 67–95; PULSE 71–92; RESP 12–20; TEMP 36.4–36.7; O2SAT 95–98; BMI 29.1
--- NOTE | 2020-03-29 00:01 | PC.NURSE ---
prn hydraliazine dose given for bp 166/70, hr 82, o2 sats 93% on r/a patient resting at this time. has been awake, alert and oriented to person, doband place only. speech clear.
--- NOTE | 2020-03-29 00:46 | PC.NURSE ---
patient c/o nausea, zofran given ivp blood pressure now 141/64. fsbs checked 205
[2020-03-29 00:50] LABS: POC Glucose,Bedside 205 (70-110)
--- NOTE | 2020-03-29 02:37 | PC.NURSE ---
0300 fsbs done per dka protocol 249. 4 units lispro given per ss per dka protocol. patient denies any further nausea. more alert at this time. eyes more focused than beginning of the shift. continues to only be oriented to person, place and .
[2020-03-29 02:41] LABS: POC Glucose,Bedside 246 (70-110)
--- NOTE | 2020-03-29 02:52 | PC.NURSE ---
0100 patient continues to gag and c/o extreme nausea. dr tomas castillo, new orders received and carried out.
[2020-03-29 05:50] LABS: POC Glucose,Bedside 211 (70-110)
--- NOTE | 2020-03-29 05:55 | PC.NURSE ---
patient has been awake throughout majority of shift, finally going to sleep about 0530. breath sounds remain clear, sats maintaining 96% on r/a, classroom monitor shows sr. oriented to person, place and . follows commands. left sided facial droop and left sided weakness noted, when asked if she was always that weak since her cva patient says yes. 2-3+ edema noted bilateral upper extremities with 2+ generalized. patient able to hold drinks independently and swallow without difficulty. repositions self in bed from supine to left side frequently. no more c/o nausea
[2020-03-29 06:47] LABS: Basophils # 0.1 K/mm3 (0-0.2); Basophils % 0.4 % (0.1-2.0); Eosinophils # 0.1 K/mm3 (0.0-0.4); Eosinophils % 0.3 % (0.1-12.0); Hematocrit 48.3 % (37.0-47.0); Lymphocytes # 2.4 K/mm3 (0.7-4.5); Lymphocytes % 16.4 % (10-50); Mean Corpuscular Hemoglobin 25.9 pg (27.0-31.2); Mean Corpuscular Volume 89.4 fl (81-99); Mean Platelet Volume 11.2 fl (7.4-10.4); Monocytes % 6.4 % (1.7-9.3); Neutrophils # 11.2 K/mm3 (1.8-7.8); Neutrophils % 76.4 % (37.0-80.0); Platelet Count 191 K/mm3 (142-424); Red Cell Distribution Width 14.5 % (11.5-17.5); White Blood Count 14.7 K/mm3 (4.8-10.8)
--- NOTE | 2020-03-29 07:16 | HMH.ACPN2 ---
Internal Medicine - PN: Subj *Date: 03/29/20 *Time: 07:16 Interval history: Patient has improved since yesterday morning. She has become more awake and alert. She has been completely taken off insulin drip and is only on subcutaneous insulin with blood sugars ranging between 150 and 250. Exam Vital signs and Labs for Last 24 Hours: Temp Pulse Resp BP Pulse Ox 97.6 F 92 H 18 147/68 H 95 03/29/20 04:00 03/29/20 04:00 03/29/20 04:00 03/29/20 04:48 03/29/20 04:00 Laboratory Results - last 24 hr 03/26/20 19:45: Urine Color Yellow, Urine Appearance Cloudy, Urine pH 5.5, Ur Specific [place] 1.025, Urine Protein 1+, Urine Glucose (UA) 3+, Urine Ketones 2+, Urine Blood 1+, Urine Nitrate Negative, Urine Bilirubin Negative, Urine Urobilinogen 0.2, Ur Leukocyte Esterase 1+ A, Urine RBC 10-20, Urine WBC Tntc 03/28/20 05:39: Total Counted 100, Neutrophils % (Manual) 75, Lymphocytes % (Manual) 23, Monocytes % (Manual) 2, Platelet Estimate Normal, RBC Morphology Normal 03/28/20 05:39: Phosphorus 1.6 L D 03/28/20 07:56: POC Glucose 160 H 03/28/20 09:40: POC Glucose 129 H 03/28/20 11:13: POC Glucose 132 H 03/28/20 14:00: Magnesium 1.8 03/28/20 17:13: POC Glucose 283 H 03/28/20 20:03: POC Glucose 296 H 03/29/20 00:44: POC Glucose 205 H 03/29/20 02:27: POC Glucose 246 H 03/29/20 05:41: POC Glucose 211 H I & O for Last 24 hours: Intake & Output 03/26/20 03/27/20 03/28/20 03/29/20 11:59 11:59 11:59 11:59 Intake Total 3000 / 3000 4939 / 4939 2309 / 2309 Output Total 1100 / 1100 2400 / 2400 2225 / 2225 Balance 1900 / 1900 2539 / 2539 84 / 84 Weight 176 lb 4.012 oz 181 lb 2 oz 181 lb 7 oz Microbiology Reports for the Last 24 Hours: Microbiology 03/26/20 20:01 Blood Blood Culture - Preliminary Staphylococcus hominis 03/26/20 19:45 Urine,Catheterized Urine Culture - Preliminary Escherichia coli 03/26/20 20:01 Blood Blood Culture - Preliminary NO GROWTH AFTER 48 HOURS - Constitutional no acute distress Comments: She coughs with drinking and eating this morning - *Routine Respiratory Exam Present: CTA bilaterally - *Routine Cardiovascular Exam Present: RRR - *Routine Abdominal Exam Present: soft, normoactive bowel sounds. Absent: tenderness Assessment and Plan (1) Diabetic keto-acidosis Status: Acute Qualifiers: Diabetes mellitus type: other specified (including ASHOK) Diabetes mellitus complication detail: without coma Qualified Code(s): E13.10 - Other specified diabetes mellitus with ketoacidosis without coma Category: Medical Code(s): E13.10 - Other specified diabetes mellitus with ketoacidosis without coma (2) Septic shock Status: Resolved Category: Medical Code(s): A41.9 - Sepsis, unspecified organism; R65.21 - Severe sepsis with septic shock (3) UTI (urinary tract infection) Status: Acute Qualifiers: Urinary tract infection type: site unspecified Hematuria presence: without hematuria Qualified Code(s): N39.0 - Urinary tract infection, site not specified Category: Medical Code(s): N39.0 - Urinary tract infection, site not specified (4) Acute kidney injury Status: Resolved Category: Medical Code(s): N17.9 - Acute kidney failure, unspecified (5) Dehydration Status: Acute Category: Medical Code(s): E86.0 - Dehydration (6) Sepsis due to methicillin resistant Staphylococcus aureus (MRSA) Status: Suspected Category: Medical Code(s): A41.02 - Sepsis due to Methicillin resistant Staphylococcus aureus (7) Hypophosphatemia Status: Acute Category: Medical Code(s): E83.39 - Other disorders of phosphorus metabolism (8) Hypokalemia Status: Acute Category: Medical Code(s): E87.6 - Hypokalemia (9) Diabetic peripheral neuropathy Status: Acute Category: Medical Code(s): E11.42 - Type 2 diabetes mellitus with diabetic polyneuro
[2020-03-29 07:23] LABS: Potassium 4.2 mmoL/L (3.5-5.1)
[2020-03-29 07:25] LABS: Blood Urea Nitrogen 25 mg/dl (7-17); Creatinine Clearance Estimated 75 mL/min (50-200); Estimated Glomerular Filt Rate 56 ml/min (>60); GFR (African American) 68 ML/MIN (>60)
[2020-03-29 07:26] LABS: Anion Gap 11.2 mEq/L (5-15); Calcium 8.3 mg/dl (8.4-10.2); Carbon Dioxide 21 mmol/L (22.0-30.0); Glucose 243 mg/dl (74-100); Phosphorous 2.6 mg/dl (2.5-4.5)
[2020-03-29 07:41] LABS: Chloride 126 mmol/L (98-107); Sodium 154 mmol/L (136-145)
[2020-03-29 08:29] LABS: POC Glucose,Bedside > 600 (70-110)
[2020-03-29 08:29] LABS: POC Glucose,Bedside > 600 (70-110)
[2020-03-29 08:29] LABS: POC Glucose,Bedside > 600 (70-110)
[2020-03-29 08:29] LABS: POC Glucose,Bedside > 600 (70-110)
[2020-03-29 08:57] LABS: POC Glucose,Bedside > 600 (70-110)
[2020-03-29 08:57] LABS: POC Glucose,Bedside > 600 (70-110)
--- NOTE | 2020-03-29 10:25 | HMH.OTEV ---
OT Inpatient Evaluation Rehab OT IP Evaluation Start: 03/29/20 07:12 Freq: ONCE Status: Complete Protocol: Document 03/29/20 10:21 [facility] (Rec: 03/29/20 10:24 [facility] [id number]) Rehab OT IP Assessment Subjective History Pt oriented x 2 on arrival. Pt was admitted via ED on due to AMS and septic shock. Pt has a past medical history of anxiety, asthma, depression, DM type 2, Hyperlipidemia, HTN, and CVA. Pt reports prior to being admitted she lived at home with her . She did ambulate with walker. Her did assist her with dressing and bathing. She was dependent upon her to complete all IADL's. Subjective He helped me. Objective Patient Orientation Person,Birthday Upper Extremity Gross ROM WFL Bed Mobility bed mobility-scooting,bed mobility - supine/sit,bed mobility - rolling Assist Level Maximum x 2 (75% assist) Transfer Training Sit/Stand/Pivot Transfer Assist Level Maximum x 2 (75% assist) Chair Transfer Ability Maximum x 2 (75% assist) Chair Transfer Technique Stand Pivot Chair Transfer Assistive Devices None Rehab OT IP prob,goals,plan Problems Date of Evaluation: 03/29/20 OT IP Problems Bed Mobility,Transfers,Gait, Balance,Self care,Safety Rehab Potential Rehab Potential Good Equipment Needs Assistive Devices Rolling / Wheeled Walker Plan OT intervention Plan Bed Mobility,Transfers,Gait, Balance,Self care,Safety OT Plan Frequency Daily Duration LOS Discharge Goals Bed Mobility Ability Assistance x1 Sit to Stand Chair Transfer Ability Moderate x 1 (50% assist) Chair Transfer Ability Moderate x 1 (50% assist) Chair Transfer Technique Sit to/from Ambulatory Chair Transfer Assistive Devices Rolling Walker Lower Body Dressing Ability Assistance X1 Upper Body Dressing Ability Standby Assistance Bathing Ability Assistance x1 Performing Toilet Hygiene Ability Standby Assistance Overall Commode/Toilet Transfer Ability Assistance x1 Commode/Toilet Transfer Technique Sit to/from Ambulatory Discharge Plan OT Discharge Plan Pt would benefit most from
[2020-03-29 11:03] LABS: POC Glucose,Bedside 215 (70-110)
--- NOTE | 2020-03-29 11:52 | HMH.PTEV ---
Physical Therapy Evaluation Rehab PT IP Evaluation Start: 03/29/20 07:12 Freq: ONCE Status: Active Protocol: Document 03/29/20 11:45 [facility] (Rec: 03/29/20 11:52 [facility] [id number]) Subjective/History History History 4-year-old female with history of diabetes brought to the emergency department via EMS with mental status changes at home and physical decline. Patient was found to be profoundly hypoglycemic and acidotic along with a urinary tract infection. Patient was diagnosed with septic shock Subjective Subjective PT REPORTS SHE IS WEAK ON l SIDE DUE TO CVA - PT UNABLE TO TELL P.T. WHEN CVA WAS BUT DID NOTE SHE WAS RECENTLY IN [facility] B/C OF STROKE Rehab PT IP Eval Objective Appearance Patient Behavior Appropriate,Fatigued Patient Orientation Place,Name,Birthday,Year Difficulty following instructions mild Speech Pattern Slurred Ambulation Patient Able to Ambulate No Balance Ability to Arise Unable Sitting Balance Leans or slides in chair Standing Balance Unsteady Dynamic Sitting Balance Ability Poor Dynamic Standing Balance Ability Zero Transfers Sit to Stand Chair Transfer Ability Total/Dependent (100%) ROM LLE PT ROM Status ABN Abnormal ROM Comment cva affect LUE PT ROM Status ABN Abnormal ROM Comment cva affect MMT LLE PT MMT ABN Abnormal MMT Grade 3-/5 LUE PT MMT ABN Abnormal MMT Grade 3-/5 Rehab PT IP prob,goals,plan Problems Date of Evaluation: 03/29/20 PT IP Problems Bed Mobility,Transfers,Gait, Self care,Safety Rehab Potential Rehab Potential Fair Equipment Needs Assistive Devices Rolling / Wheeled Walker Plan PT Intervention Plan Bed Mobility,Transfers,Gait, Balance,Self care,Safety, Therapeutic Exercise PT Plan Frequency BID Duration LOS Discharge Goals Bed Transfer Ability Maximum x 1 (75% assist) Sit to Stand Chair Transfer Ability Maximum x 2 (75% assist) Ambulation Assistive Device Rolling Walker Ambulation Distance (feet) 2 Discharge Plan PT Discharge Plan
--- NOTE | 2020-03-29 11:53 | HMH.PHACONS ---
- Pharmacy Consult Date: 03/29/20 Time: 11:53 Referring provider: DR. SANDOVAL Reason for Consult:: VANCOMYCIN TROUGH LEVEL Allergies and ADEs:: Allergies Allergy/AdvReac Type Severity Reaction Status Date / Time erythromycin base Allergy Unknown Verified 07/17/17 20:45 [ERYTHROMYCIN BASE] Penicillins [PENICILLINS] Allergy Unknown Verified 07/17/17 20:45 Sulfa (Sulfonamide Allergy Unknown Verified 07/17/17 20:45 Antibiotics) [SULFA (SULFONAMIDE ANTIBIOTICS)] sulfamethoxazole Allergy Unknown Verified 07/17/17 20:45 [From BACTRIM] tetracycline [TETRACYCLINE] Allergy Unknown Verified 07/17/17 20:45 trimethoprim [From BACTRIM] Allergy Unknown Verified 07/17/17 20:45 Home Medications:: Home Medications Medication Instructions Recorded Confirmed Type Atorvastatin Calcium [Atorvastatin 80 mg PO DAILY 08/10/18 03/26/20 History 80mg Tab] Furosemide [Furosemide 20mg Tab*] 20 mg PO DAILY 08/10/18 03/26/20 History Meclizine HCl [Meclizine 25mg Tab] 25 mg PO DAILYP PRN 08/10/18 03/27/20 History Oxybutynin Chloride [Oxybutynin 15 mg PO DAILY 08/10/18 03/26/20 History Chloride ER] Pantoprazole Sodium [Protonix 40mg 40 mg PO HS 08/10/18 03/26/20 History tablet] Ropinirole HCl 4 mg PO HS 08/10/18 03/27/20 History Sucralfate [Sucralfate 1gm 1 g PO QID 08/10/18 03/26/20 History Tab] Tramadol HCl [Ultram 50mg 50 mg PO Q6HP PRN 08/10/18 03/27/20 History tablet] buPROPion HCL [Wellbutrin SR 150mg 150 mg PO DAILY 08/10/18 03/27/20 History Tablet] Cholecalciferol (Vitamin D3) 1,000 unit PO DAILY 03/26/20 03/26/20 History [Vitamin D3 1,000 Unit Cap] Gabapentin [Gabapentin 300mg Cap] 300 mg PO BID 03/26/20 03/26/20 History Insulin Aspart Prot/Insuln Asp 35 unit SQ HS 03/26/20 03/26/20 History [Novolog Mix 70/30 Flexpen 100 Units/mL 3mL] Insulin Aspart Prot/Insuln Asp 55 unit SQ DAILY 03/26/20 03/26/20 History [Novolog Mix 70/30 Flexpen 100 Units/mL 3mL] Memantine HCl [Memantine 5mg 10 mg PO BID 03/26/20 03/27/20 History Tablet] Metoprolol Tartrate [Lopressor 12.5 mg PO BID 03/26/20 03/27/20 History 25mg tablet] Rivaroxaban [Xarelto 20mg Tablet*] 20 mg PO QPMWM 03/26/20 03/27/20 History Amitriptyline HCl [Elavil 25mg 25 mg PO DAILY 03/27/20 03/27/20 History tablet] Buspirone HCl [Buspar 10mg 10 mg PO TID 03/27/20 03/27/20 History tablet] Height: 1.68 m Weight: 82.299 kg Laboratory Results:: Laboratory Results - last 24 hr 03/26/20 19:44: POC Glucose > 600 H* 03/26/20 19:45: Urine Color Yellow, Urine Appearance Cloudy, Urine pH 5.5, Ur Specific [place] 1.025, Urine Protein 1+, Urine Glucose (UA) 3+, Urine Ketones 2+, Urine Blood 1+, Urine Nitrate Negative, Urine Bilirubin Negative, Urine Urobilinogen 0.2, Ur Leukocyte Esterase 1+ A, Urine RBC 10-20, Urine WBC Tntc 03/26/20 19:46: POC Glucose > 600 H* 03/26/20 23:01: POC Glucose > 600 H* 03/26/20 23:01: POC Glucose > 600 H* 03/27/20 00:18: POC Glucose > 600 H* 03/27/20 00:56: POC Glucose > 600 H* 03/27/20 01:52: POC Glucose > 600 H* 03/28/20 14:00: Magnesium 1.8 03/28/20 17:13: POC Glucose 283 H 03/28/20 20:03: POC Glucose 296 H 03/29/20 00:44: POC Glucose 205 H 03/29/20 02:27: POC Glucose 246 H 03/29/20 05:34: WBC 14.7 H D, RBC 5.40, Hgb 14.0, Hct 48.3 H, MCV 89.4, MCH 25.9 L, MCHC 29.0 L, RDW 14.5, Plt Count 191 D, MPV 11.2 H, Neut % (Auto) 76.4, Lymph % (Auto) 16.4, [place] % (Auto) 6.4, Eos % (Auto) 0.3, Baso % (Auto) 0.4, Neut # (Auto) 11.2 H, Lymph # (Auto) 2.4, [place] # (Auto) 1.0, Eos # (Auto) 0.1, Baso # (Auto) 0.1 03/29/20 05:34: Sodium 154 H*, Potassium 4.2 D, Chloride 126 H, Carbon Dioxide 21 L, Anion Gap 11.2, BUN 25 H D, Creatinine 1.00, Estimated Creat Clear 75, Estimated GFR 56 L, Est GFR ( Amer) 68 D, Glucose 243 H, Calcium 8.3 L, Phosphorus 2.6 D 03/29/20 05:41: POC Glucose 211 H 03/29/20 10:20: Vancomycin Trough 12.0 H 03/29/20 10:40: POC Glucose 215 H Med
--- NOTE | 2020-03-29 11:53 | HMH.SLDYSPHA ---
Speech & Language Evaluation Speech/Language Dysphagia Evaluation Start: 03/29/20 11:33 Freq: ONCE Status: Active Protocol: Document 03/29/20 11:34 CHI (Rec: 03/29/20 11:53 CHI [id number]) Dysphagia Assess/Goals/Plan Assessment Date of Evaluation: 03/29/20 Evaluation Type Initial Certification Assessment/Problems Dysphagia Does Patient Qualify for Service No Qualify/Failure Comment Patient showed no signs or symptoms of dysphagia Recommendations PHYSICIAN CERTIFICATION: The specified therapy services are required, authorized, and reviewed every 30 days. Diet Recommendations Mechanical Soft Liquid Type Recommendations Normal/Thin SL Swallow Guidelines Assist w/all meals,Standard Aspiration Prec. Plan Pt/Guardian verbally ack understanding No: RN and CM notified of dx/prognosis/goals G -code Required No General Information General Current Food Consistancy Regular,Thin Liquids Dentition Edentulous Oxygen Status Room Air Facial Symmetry Asymmetrical,Patient Baseline Patient Orientation Person,Place Ability to Follow Directions Good Communication Ability Mild Impairment Dysphagia:Food Presentation Evaluation Food Type Pureed,Mechanical Soft,Liquid, Pudding Dysphagia Evaluation Summary Ms. Mckinney was given the following consistencies: thins via straw and open cup, pudding, pureed, and mechanical soft. No signs of dysphagia noted. It is recommended that she be placed on Mechanical soft diet with ground meats with sauce with thin liquids due to lack of dentition and she does not have her dentures currently at the hospital. Stroke Dysphagia Assessment PHYSICIAN CERTIFICATION: I certify the specified therapy services for Bhavani Mckinney are required, authorized, and reviewed every 30 days.
--- NOTE | 2020-03-29 14:37 | SW/DCPLANNER ---
Addendum entered by Harriet Garner 03/31/20 09:27: This patient has been set up with [facility]....Frieda with [facility] has reviewed patient information and stated that services will begin this weekend for this patient. Patient discharged home yesterday. Addendum entered by Catalina Deleon 03/29/20 15:45: WENT BACK IN TO SPEAK WITH AFTER HE TALKED WITH DAUGHTER AND HE WANTS TO TAKE HER HOME.. HE REQUEST A HOSPITAL BED AND HOME HEALTH SERVICES.. HE STATED HE HAS USED [facility] IN THE PAST..PATIENT WAS ADAMANT WHEN SPOUSE TALKED TO HER THAT SHE WANTED TO GO HOME.. I WILL SET UP HER DME IN THE AM AND HOME HEALTH SERVICES ONCE CONFIRMED SHE IS DISCHARGING.. Original Note: SPOKE WITH REGARDING DISCHARGE PLANNING ON THIS PATIENT... THERAPY STATED SHE IS A MAX ASSIST AND NEEDS TO GO SOMEWHERE.. [facility] HAS BEDS AND I SENT REFERRAL OVER THERE JUST TO SEE IF PATIENT IS A CANDIDATE, STATED HE DOES NOT WANT HER TO GO THERE, SO I CALLED AND CANCELLED THE REFERRAL..I AM GOING TO GO BACK AND SPEAK WITH HIM AFTER SPEAKS WITH HIS DAUGHTER.. THE PLAN IS FOR HER DISCHARGE [facility] () PER DR SANDOVAL.
--- NOTE | 2020-03-29 14:49 | DIET.NUTRFU ---
Pt placed on [facility] soft diet for safety dt edentulism per speech. PO intakes 25% rt continued nausea/weakness. BG avg today-220. Weight stable. Pt may have glucerna with low meal intake/RN offer.
--- NOTE | 2020-03-29 15:46 | PC.NURSE ---
Pt at times is A&O x4, but periodically throughout day when interacting w/ pt she would act as though she was unsure where she was and what was going on staring blankly at staff. Pt did well w/ bedside swallow eval, although diet was changed to mech soft because pt does not have her dentures w/ her. PT/OT eval completed today, pt was a total lift from bed to chair, not helping to rise or pivot. Pt sat up to chair for about 4 hours this shift through lunch, tolerating well. Appetite has been poor, only eating about 25% of trays. Staff have offered multiple times to help w/ meals. Zofran given x1 for nausea this morning w/ verbalization of relief. She remains on room air w/ no s/s of resp distress. HR in the 70-80's, rate regular. Abdomen soft, non-tender w/ active BS. No BM this shift. Falcon cath to drain at bedside w/ clear yellow urine noted. Skin intact. No edema present. Teds in place to BLE. currently at bedside. Arturo Deleon has spoke w/ pt and her who have opted to be DC'd home instead of a longterm for rehab, covid swab cancelled for this reason. Pt is currently lying in bed w/ no needs voiced. Call darryl w/in reach.
[2020-03-29 16:40] LABS: POC Glucose,Bedside 144 (70-110)
[2020-03-29 20:28] LABS: POC Glucose,Bedside 126 (70-110)
[2020-03-30] VITALS: BP 131/69; PULSE 60; PULSE 66; RESP 20; TEMP 36.4; O2SAT 92
[2020-03-30 01:42] LABS: POC Glucose,Bedside 176 (70-110)
[2020-03-30 04:00] VITALS: BP 115/58; PULSE 60; PULSE 66; RESP 18; TEMP 36.6; O2SAT 91
[2020-03-30 04:45] VITALS: BMI 29.9
[2020-03-30 05:47] LABS: POC Glucose,Bedside 172 (70-110)
[2020-03-30 06:06] LABS: Basophils # 0.1 K/mm3 (0-0.2); Basophils % 0.6 % (0.1-2.0); Eosinophils # 0.3 K/mm3 (0.0-0.4); Eosinophils % 3.4 % (0.1-12.0); Hematocrit 45.1 % (37.0-47.0); Hemoglobin 14.8 g/dL (12.2-16.2); Lymphocytes # 3.2 K/mm3 (0.7-4.5); Lymphocytes % 32.6 % (10-50); Mean Corpuscular HGB Conc 32.7 g/dL (31.8-35.4); Mean Corpuscular Hemoglobin 29.4 pg (27.0-31.2); Mean Corpuscular Volume 89.9 fl (81-99); Mean Platelet Volume 10.1 fl (7.4-10.4); Monocytes # 0.5 K/mm3 (0.1-1.0); Neutrophils # 5.7 K/mm3 (1.8-7.8); Neutrophils % 58.3 % (37.0-80.0); Platelet Count 153 K/mm3 (142-424); Red Blood Count 5.02 M/mm3 (4.20-5.40); Red Cell Distribution Width 14.6 % (11.5-17.5); White Blood Count 9.8 K/mm3 (4.8-10.8)
[2020-03-30 06:25] LABS: Chloride 115 mmol/L (98-107); Sodium 144 mmol/L (136-145)
[2020-03-30 06:28] LABS: Blood Urea Nitrogen 21 mg/dl (7-17); Calcium 8.1 mg/dl (8.4-10.2); Carbon Dioxide 25 mmol/L (22.0-30.0); Creatinine Clearance Estimated 77 mL/min (50-200); Estimated Glomerular Filt Rate 63 ml/min (>60); GFR (African American) 77 ML/MIN (>60); Glucose 202 mg/dl (74-100)
[2020-03-30 08:00] VITALS: BP 167/71; PULSE 71; PULSE 78; RESP 15; RESP 16; TEMP 36.8; TEMP 37.1; O2SAT 95; O2SAT 97
--- NOTE | 2020-03-30 08:22 | HMH.ACPN2 ---
Internal Medicine - PN: Subj *Date: 03/30/20 *Time: 08:22 Interval history: Patient has no complaints this morning and reports she is ready to be discharged. Appetite has improved. Blood sugars have been better controlled and she is now on her home dosing of insulin. Exam Vital signs and Labs for Last 24 Hours: Temp Pulse Resp BP Pulse Ox 98.7 F 78 15 167/71 H 95 03/30/20 08:00 03/30/20 08:00 03/30/20 08:00 03/30/20 08:00 03/30/20 08:00 Laboratory Results - last 24 hr 03/26/20 19:44: POC Glucose > 600 H* 03/26/20 19:46: POC Glucose > 600 H* 03/26/20 23:01: POC Glucose > 600 H* 03/26/20 23:01: POC Glucose > 600 H* 03/27/20 00:18: POC Glucose > 600 H* 03/27/20 00:56: POC Glucose > 600 H* 03/27/20 01:52: POC Glucose > 600 H* 03/29/20 10:20: Vancomycin Trough 12.0 H 03/29/20 10:40: POC Glucose 215 H 03/29/20 16:11: POC Glucose 144 H 03/29/20 20:19: POC Glucose 126 H 03/30/20 01:36: POC Glucose 176 H 03/30/20 05:40: POC Glucose 172 H 03/30/20 05:52: WBC 9.8 D, RBC 5.02, Hgb 14.8, Hct 45.1, MCV 89.9, MCH 29.4, MCHC 32.7, RDW 14.6, Plt Count 153, MPV 10.1, Neut % (Auto) 58.3, Lymph % (Auto) 32.6, [place] % (Auto) 5.0, Eos % (Auto) 3.4, Baso % (Auto) 0.6, Neut # (Auto) 5.7, Lymph # (Auto) 3.2, [place] # (Auto) 0.5, Eos # (Auto) 0.3, Baso # (Auto) 0.1 03/30/20 05:52: Sodium 144, Potassium 4.0, Chloride 115 H, Carbon Dioxide 25, Anion Gap 8.0, BUN 21 H, Creatinine 0.90, Estimated Creat Clear 77, Estimated GFR 63, Est GFR ( Amer) 77, Glucose 202 H, Calcium 8.1 L I & O for Last 24 hours: Intake & Output 03/27/20 03/28/20 03/29/20 03/30/20 11:59 11:59 11:59 11:59 Intake Total 3000 / 3000 4939 / 4939 2789 / 2789 720 / 720 Output Total 1100 / 1100 2400 / 2400 2225 / 2225 1200 / 1200 Balance 1900 / 1900 2539 / 2539 564 / 564 -480 / -480 Weight 176 lb 4.012 oz 181 lb 2 oz 181 lb 7 oz 186 lb 5 oz Microbiology Reports for the Last 24 Hours: Microbiology 03/26/20 19:45 Urine,Catheterized Urine Culture - Preliminary Escherichia coli 03/26/20 20:01 Blood Blood Culture - Preliminary Staphylococcus hominis - Constitutional no acute distress - *Routine HEENT Exam Head: Present: other (Left facial droop) Eye: Present: EOMI, PERRL ENT: Present: mucous membranes moist - *Routine Respiratory Exam Present: CTA bilaterally - *Routine Cardiovascular Exam Present: RRR - *Routine Abdominal Exam Present: soft, normoactive bowel sounds. Absent: tenderness - *Routine Neurological Exam Left-sided hemiplegia Assessment and Plan (1) Diabetic keto-acidosis Status: Acute Qualifiers: Diabetes mellitus type: other specified (including ASHOK) Diabetes mellitus complication detail: without coma Qualified Code(s): E13.10 - Other specified diabetes mellitus with ketoacidosis without coma Category: Medical Code(s): E13.10 - Other specified diabetes mellitus with ketoacidosis without coma (2) Septic shock Status: Resolved Category: Medical Code(s): A41.9 - Sepsis, unspecified organism; R65.21 - Severe sepsis with septic shock (3) UTI (urinary tract infection) Status: Acute Qualifiers: Urinary tract infection type: site unspecified Hematuria presence: without hematuria Qualified Code(s): N39.0 - Urinary tract infection, site not specified Category: Medical Code(s): N39.0 - Urinary tract infection, site not specified (4) Acute kidney injury Status: Resolved Category: Medical Code(s): N17.9 - Acute kidney failure, unspecified (5) Dehydration Status: Acute Category: Medical Code(s): E86.0 - Dehydration (6) Sepsis due to methicillin resistant Staphylococcus aureus (MRSA) Status: Suspected Category: Medical Code(s): A41.02 - Sepsis due to Methicillin resistant Staphylococcus aureus (7) Hypophosphatemia Status: Acute Category: Medical Code(s): E83.39 - Other disorders of phosphorus metab
--- NOTE | 2020-03-30 08:25 | HMH.DCSUM ---
General - General Admission date:: 03/26/20 Discharge date: 03/30/20 HPI HPI: 64-year-old female with history of diabetes brought to the emergency department via EMS with mental status changes at home and physical decline. Patient was found to be profoundly hypoglycemic and acidotic along with a urinary tract infection. Patient was diagnosed with septic shock and treated with fluid boluses and begun on insulin drip. Patient was admitted with fluids, insulin drip, IV antibiotics. Nursing staff reports this morning patient has improved since arrival to the floor. Patient will now awaken to her name and moans in response to questions. Nursing reports patient has nodded her head as an affirmative to some questions. Patient is unable to provide me any additional history this morning. History is taken from the ER note Hospital Course Hospital Course: Patient was admitted on insulin drip for treatment of severe diabetic ketoacidosis. Patient had routine assessments of renal function, glucose, sodium and potassium. She remained obtunded for almost the first full 48 hours of hospitalization. As patient's glucose improved sodium ilsa and potassium decreased. Patient was transitioned to D5 half-normal saline per protocol while on the insulin drip. Phosphorus was replaced with potassium phosphate. Hypernatremia was believed due to secondary decrease in the patient's glucose. On March 28 patient was transitioned back to her 70/30 insulin with reduced dosing due to poor appetite. On March 29 patient was resumed on her home dosing. Blood sugars remained in the 100s to low 200s. Patient was discharged on March 30 to home. Patient was septic on presentation with septic shock. She was resuscitated appropriately. She was started on broad-spectrum antibiotics while awaiting culture data. Blood cultures ultimately grew a contaminant. Urine culture grew a small amount of E. coli. At discharge patient will continue oral nitrofurantoin to treat her urinary tract infection. Patient had acute kidney injury on presentation which improved with fluid resuscitation Patient has diabetic neuropathy. 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 Physically patient had returned to near baseline at discharge. At discharge home home health will be arranged for nursing, PT and OT. Hospital bed will also be arranged for the patient. Prior stroke with impaired mobility of the left side requires patient to have a hospital bed to alleviate pain, allow for better bed mobility, Patient will follow-up in the office in 10 to 14 days Objective Vital signs: Temp Pulse Resp BP Pulse Ox 98.7 F 78 15 167/71 H 95 03/30/20 08:00 03/30/20 08:00 03/30/20 08:00 03/30/20 08:00 03/30/20 08:00 Results Labs on day of discharge: Labs from last 24 hours 03/30/20 03/30/20 03/30/20 05:52 05:52 05:40 WBC 9.8 D RBC 5.02 Hgb 14.8 Hct 45.1 MCV 89.9 MCH 29.4 MCHC 32.7 RDW 14.6 Plt Count 153 MPV 10.1 Neut % (Auto) 58.3 Lymph % (Auto) 32.6 [place] % (Auto) 5.0 Eos % (Auto) 3.4 Baso % (Auto) 0.6 Neut # (Auto) 5.7 Lymph # (Auto) 3.2 [place] # (Auto) 0.5 Eos # (Auto) 0.3 Baso # (Auto) 0.1 Sodium 144 Potassium 4.0 Chloride 115 H Carbon Dioxide 25 Anion Gap 8.0 BUN 21 H Creatinine 0.90 Estimated Creat Clear 77 Estimated GFR 63 Est GFR ( Amer) 77 Glucose 202 H POC Glucose 172 H Calcium 8.1 L Vancomycin Trough 03/30/20 03/29/20 03/29/20 01:36 20:19 16:11 WBC RBC Hgb Hct MCV MCH MCHC RDW Plt Count MPV Neut % (Auto) Lymph % (Auto) [place] % (Auto) Eos % (Auto) Baso % (Auto) Neut # (Auto) Lymph # (Auto) [place] # (Auto) Eos # (Auto) Baso # (Auto)
--- NOTE | 2020-03-30 08:44 | PC.NURSE ---
Pt requires a hospital bed for mobility and repositioning. She has baseline weakness on LUE and LLE from previous CVA's and d/t this hospitalization she has increased weakness.
--- NOTE | 2020-03-30 09:54 | HMH.ACPN ---
Internal Medicine - PN: Subj *Date: 03/30/20 *Time: 09:54 Exam Vital signs and Labs for Last 24 Hours: Temp Pulse Resp BP Pulse Ox 98.3 F 71 16 167/71 H 97 03/30/20 08:00 03/30/20 08:00 03/30/20 08:00 03/30/20 08:00 03/30/20 08:00 Laboratory Results - last 24 hr 03/29/20 10:20: Vancomycin Trough 12.0 H 03/29/20 10:40: POC Glucose 215 H 03/29/20 16:11: POC Glucose 144 H 03/29/20 20:19: POC Glucose 126 H 03/30/20 01:36: POC Glucose 176 H 03/30/20 05:40: POC Glucose 172 H 03/30/20 05:52: WBC 9.8 D, RBC 5.02, Hgb 14.8, Hct 45.1, MCV 89.9, MCH 29.4, MCHC 32.7, RDW 14.6, Plt Count 153, MPV 10.1, Neut % (Auto) 58.3, Lymph % (Auto) 32.6, [place] % (Auto) 5.0, Eos % (Auto) 3.4, Baso % (Auto) 0.6, Neut # (Auto) 5.7, Lymph # (Auto) 3.2, [place] # (Auto) 0.5, Eos # (Auto) 0.3, Baso # (Auto) 0.1 03/30/20 05:52: Sodium 144, Potassium 4.0, Chloride 115 H, Carbon Dioxide 25, Anion Gap 8.0, BUN 21 H, Creatinine 0.90, Estimated Creat Clear 77, Estimated GFR 63, Est GFR ( Amer) 77, Glucose 202 H, Calcium 8.1 L I & O for Last 24 hours: Intake & Output 03/27/20 03/28/20 03/29/20 03/30/20 23:59 23:59 23:59 23:59 Intake Total 5740 / 5990 4508 / 4508 1200 / 1200 240 / 240 Output Total 2500 / 3500 2700 / 2700 1325 / 1325 850 / 850 Balance 3240 / 2490 1808 / 1808 -125 / -125 -610 / -610 Weight 80 kg 82.157 kg 82.299 kg 84.51 kg Microbiology Reports for the Last 24 Hours: Microbiology 03/26/20 20:01 Blood Blood Culture - Preliminary Staphylococcus hominis 03/26/20 19:45 Urine,Catheterized Urine Culture - Preliminary Escherichia coli Assessment and Plan (1) Diabetic keto-acidosis Status: Acute Qualifiers: Diabetes mellitus type: other specified (including ASHOK) Diabetes mellitus complication detail: without coma Qualified Code(s): E13.10 - Other specified diabetes mellitus with ketoacidosis without coma Category: Medical Code(s): E13.10 - Other specified diabetes mellitus with ketoacidosis without coma (2) Septic shock Status: Resolved Category: Medical Code(s): A41.9 - Sepsis, unspecified organism; R65.21 - Severe sepsis with septic shock (3) UTI (urinary tract infection) Status: Acute Qualifiers: Urinary tract infection type: site unspecified Hematuria presence: without hematuria Qualified Code(s): N39.0 - Urinary tract infection, site not specified Category: Medical Code(s): N39.0 - Urinary tract infection, site not specified (4) Acute kidney injury Status: Resolved Category: Medical Code(s): N17.9 - Acute kidney failure, unspecified (5) Dehydration Status: Acute Category: Medical Code(s): E86.0 - Dehydration (6) Sepsis due to methicillin resistant Staphylococcus aureus (MRSA) Status: Ruled-out Category: Medical Code(s): A41.02 - Sepsis due to Methicillin resistant Staphylococcus aureus (7) Hypophosphatemia Status: Acute Category: Medical Code(s): E83.39 - Other disorders of phosphorus metabolism (8) Hypokalemia Status: Acute Category: Medical Code(s): E87.6 - Hypokalemia (9) Diabetic peripheral neuropathy Status: Acute Category: Medical Code(s): E11.42 - Type 2 diabetes mellitus with diabetic polyneuropathy (10) Hemiplegia of left nondominant side as late effect of cerebral infarction Status: Acute Category: Medical Code(s): I69.354 - Hemiplegia and hemiparesis following cerebral infarction affecting left non-dominant side (11) E coli infection Status: Acute Category: Medical Code(s): A49.8 - Other bacterial infections of unspecified site The patient's infection will respond to the chosen ABx?: Yes Is the patient receiving the right drug, dose, and route?: Yes Could a more targeted ABx be ordered?: No (E. COLI IN URINE-SENSITIVE TO ERTAPENEM)
[2020-03-30 12:26] LABS: POC Glucose,Bedside 256 (70-110)
== END 2020-03-30 12:00 | disposition home health service (06) | DRG 637 ==
LOC: ER 21:40 → 2ND 23:05
PROVIDERS: Admitting Provider Internal Medicine Adolescent Medicine; Emergency Provider Emergency Medicine; PCP Nurse Practitioner; Visit Provider Family Medicine
DX: E11.10 Type 2 diabetes mellitus with ketoacidosis without coma (principal); A41.02 Sepsis due to Methicillin resistant Staphylococcus aureus; R65.21 Severe sepsis with septic shock; N39.0 Urinary tract infection, site not specified; N17.9 Acute kidney failure, unspecified; I69.354 Hemiplegia and hemiparesis following cerebral infarction affecting left non-dominant side; Z88.0 Allergy status to penicillin; Z88.2 Allergy status to sulfonamides; Z88.1 Allergy status to other antibiotic agents; Z72.0 Tobacco use; Z79.4 Long term (current) use of insulin; E87.6 Hypokalemia; Z79.01 Long term (current) use of anticoagulants; E11.42 Type 2 diabetes mellitus with diabetic polyneuropathy
CPT/HCPCS: 36415; 70450; 71045; 80048; 80053; 80202; 81001; 82009; 82550; 82803; 82947; 82962; 83036; 83605; 83735; 84100; 84145; 84484; 85007; 85025; 85651; 86140; 86328; 87040; 87077; 87086; 87088; 87186; 90686; 92610; 93005; 96365; 96366; 96367; 96375; 97162; 97166; 97530; 99285; J1335; J2405; J3370

== ENCOUNTER 2020-09-16 15:57 | Inpatient (IN) | payer MEDICARE, OTHER, SELFPAY ==
[2020-09-16] VITALS (12 sets, daily range): BP systolic 165–215; BP diastolic 67–96; PULSE 75–97; RESP 15–18; TEMP 36.6–36.8; O2SAT 89–99; BMI 36.6; BMI 36.8
--- NOTE | 2020-09-16 16:02 | XR_ITS ---
PROCEDURE INFORMATION: Exam: XR Left Hip Exam date and time: 09/16/2020 4:02 PM Age: 65 years old Clinical indication: Injury or trauma; Fall; Blunt trauma (contusions or hematomas); Left; Hip; Additional info: Fall yesterday TECHNIQUE: Imaging protocol: XR Left hip. Views: 2 or 3 views hip with pelvis when performed. COMPARISON: No relevant prior studies available. FINDINGS: Bones/joints: Left femoral neck fracture through the subcapital region. Moderate varus angulation. No dislocation. SI joints and pubic symphysis are unremarkable. Right hip is unremarkable. Soft tissues: Unremarkable. IMPRESSION: Left femoral neck fracture.
--- NOTE | 2020-09-16 16:03 | XR_ITS ---
PROCEDURE INFORMATION: Exam: XR Left Knee Exam date and time: 09/16/2020 4:03 PM Age: 65 years old Clinical indication: Injury or trauma; Fall; Blunt trauma; Knee; Left; Additional info: Pain TECHNIQUE: Imaging protocol: XR Left knee. Views: 3 views. COMPARISON: No relevant prior studies available. FINDINGS: Bones/joints: No acute fracture or dislocation. Minor patellar spurring. Moderate narrowing of the lateral tibiofemoral compartment and mild narrowing of the medial tibiofemoral compartment. Soft tissues: No effusion or soft tissue swelling. IMPRESSION: No acute findings.
--- NOTE | 2020-09-16 16:03 | XR_ITS ---
PROCEDURE INFORMATION: Exam: XR Left Ankle Exam date and time: 09/16/2020 4:03 PM Age: 65 years old Clinical indication: Injury or trauma; Fall; Blunt trauma; Ankle; Left; Additional info: Pain TECHNIQUE: Imaging protocol: XR Left ankle. Views: 3 or more views. COMPARISON: No relevant prior studies available. FINDINGS: Bones/joints: No acute fracture or dislocation. Ankle mortise is intact. Normal bone mineralization. Dorsal calcaneal enthesophyte. Soft tissues: Mild generalized soft tissue swelling in the lower leg and at the level of the ankle. IMPRESSION: Soft tissue swelling.
--- NOTE | 2020-09-16 16:31 | CT_ITS ---
PROCEDURE INFORMATION: Exam: CT Head Without Contrast Exam date and time: 09/16/2020 4:31 PM Age: 65 years old Clinical indication: Injury or trauma; Fall; Blunt trauma (contusions or hematomas); Consciousness not specified; Patient HX: Fell down concrete steps yesterday; Additional info: Head injury. Fall TECHNIQUE: Imaging protocol: Computed tomography of the head without contrast. Radiation optimization: All CT scans at this facility use at least one of these dose optimization techniques: automated exposure control; mA and/or kV adjustment per patient size (includes targeted exams where dose is matched to clinical indication); or iterative reconstruction. COMPARISON: CT HEAD/BRAIN WO CON 03/26/2020 8:27 PM FINDINGS: Brain: Old right basal ganglia region infarct. No acute infarct or hemorrhage. Mild changes of chronic small vessel ischemia within the cerebral white matter regions bilaterally. There is age-appropriate cerebral atrophy. Cerebral ventricles: No ventriculomegaly. Paranasal sinuses: Visualized sinuses are unremarkable. No fluid levels. Mastoid air cells: Visualized mastoid air cells are well aerated. Bones/joints: Unremarkable. No acute fracture. Soft tissues: Unremarkable. IMPRESSION: No acute intracranial abnormality.
--- NOTE | 2020-09-16 16:38 | CT_ITS ---
PROCEDURE INFORMATION: Exam: CT Pelvis Without Contrast; Skeletal Exam date and time: 09/16/2020 4:38 PM Age: 65 years old Clinical indication: Injury or trauma; Fall; Blunt trauma (contusions or hematomas); Left; Hip; Patient HX: Fell down concrete steps yesterday TECHNIQUE: Imaging protocol: Computed tomography images of the pelvis without contrast. Exam focused on the skeletal structures. 3D rendering (Not supervised by radiologist): MIP and/or 3D reconstructed images were created by the technologist. Radiation optimization: All CT scans at this facility use at least one of these dose optimization techniques: automated exposure control; mA and/or kV adjustment per patient size (includes targeted exams where dose is matched to clinical indication); or iterative reconstruction. COMPARISON: CR XR HIP LT 2-3V W/PELVIS 09/16/2020 4:27 PM FINDINGS: Soft tissues: No joint effusion. Mild soft tissue swelling adjacent to the femoral fracture. No dislocation. Bones/joints: Left femoral subcapital region fracture with mild displacement and varus angulation. No additional fracture. Spina bifida occulta incidentally noted. SI joints and pubic symphysis are unremarkable. Bilateral iliac crest and greater trochanteric enthesophytes. IMPRESSION: Proximal left femur fracture.
--- NOTE | 2020-09-16 16:40 | CT_ITS ---
PROCEDURE INFORMATION: Exam: CT Left Lower Extremity Without Contrast, Hip Exam date and time: 09/16/2020 4:40 PM Age: 65 years old Clinical indication: Injury or trauma; Fall; Blunt trauma; Hip; Left; Patient HX: Fell down concrete steps yesterday; Additional info: Fracture TECHNIQUE: Imaging protocol: CT of the Left lower extremity without contrast was performed. Exam focused on the hip. 3D rendering (Not supervised by radiologist): MIP and/or 3D reconstructed images were created by the technologist. Radiation optimization: All CT scans at this facility use at least one of these dose optimization techniques: automated exposure control; mA and/or kV adjustment per patient size (includes targeted exams where dose is matched to clinical indication); or iterative reconstruction. COMPARISON: CR XR HIP LT 2-3V W/PELVIS 09/16/2020 4:27 PM FINDINGS: Bones/joints: Fracture through the subcapital region of the left proximal femur. Varus angulation. Minor displacement. No dislocation. No additional fracture. Soft tissues: Mild soft tissue swelling adjacent to the fracture. Lymph nodes: No adenopathy. IMPRESSION: Left femoral subcapital fracture.
--- NOTE | 2020-09-16 16:41 | CT_ITS ---
PROCEDURE INFORMATION: Exam: CT Cervical Spine Without Contrast Exam date and time: 09/16/2020 4:41 PM Age: 65 years old Clinical indication: Injury or trauma; Fall; Blunt trauma; Patient HX: Fell down concrete steps yesterday TECHNIQUE: Imaging protocol: Computed tomography images of the cervical spine without contrast. Radiation optimization: All CT scans at this facility use at least one of these dose optimization techniques: automated exposure control; mA and/or kV adjustment per patient size (includes targeted exams where dose is matched to clinical indication); or iterative reconstruction. COMPARISON: DX [id number] XR cervical spine 5V 03/30/2018 12:32 PM FINDINGS: Bones/joints: No acute fracture. Normal alignment. Discs/Spinal canal/Neural foramina: No significant disc protrusion. No severe spinal canal stenosis. No significant neural foraminal narrowing. Lungs: Lung apices are normal. Soft tissues: Unremarkable. IMPRESSION: No acute findings.
--- NOTE | 2020-09-16 16:46 | XR_ITS ---
PROCEDURE INFORMATION: Exam: XR Chest Exam date and time: 09/16/2020 4:46 PM Age: 65 years old Clinical indication: Injury or trauma; Fall; Blunt trauma (contusions or hematomas); Patient HX: Fell down concrete steps yesterday; Additional info: FX hip TECHNIQUE: Imaging protocol: XR of the chest. Views: 1 view. COMPARISON: CR XR CHEST PORTABLE 03/26/2020 8:24 PM FINDINGS: Lungs: Unremarkable. No consolidation. Pleural spaces: Unremarkable. No pleural effusion. No pneumothorax. Heart/Mediastinum: Unremarkable. No cardiomegaly. Bones/joints: Median sternotomy. IMPRESSION: No acute findings.
--- NOTE | 2020-09-16 16:47 | HMH.EDGENADL ---
ED Disposition Clinical Impression: Closed left hip fracture, Hypertension Disposition: Admitted As Inpatient Condition on Discharge: Good - Critical Care Critical Care Time: No Attestation: On 09/16/20, the high probability of a clinically significant, sudden or life threatening deterioration of the following system(s) required my full and direct attention, intervention and personal management. The time I documented below is in addition to time spent performing reported procedures but includes the following listed in this critical care notation. Medical Decision Making - Medical Records MR Comment: Surgical neck fracture of the left hip she will be admitted to the hospital. Consulted Dr. Roberts he accepted the patient. Called Dr. shah also he accepted the patient. patient has uncontrolled hypertension it was addressed - Volodymyr Inquiry Pt receiving controlled substance: No Volodymyr was queried for this patient: No Vital Signs: 09/16/20 15:58 09/16/20 16:00 09/16/20 16:30 Temperature 98 F Temperature Source Oral Pulse Rate 93 H 88 Pulse Rate [Radial] 75 Respiratory Rate 18 16 Blood Pressure 215/78 H 205/83 H Blood Pressure [Right Arm] 200/83 H Blood Pressure Mean [Right Arm] 122 Blood Pressure Source Blood Pressure Position Sitting Sitting Blood Pressure Position [Right Arm] Sitting 02 Sat by Pulse Oximetry 96 96 Oxygen Delivery Method Room Air Oxygen Flow Rate (LPM) 09/16/20 17:24 09/16/20 17:30 09/16/20 17:35 Temperature Temperature Source Pulse Rate 94 H 94 H 86 Pulse Rate [Radial] Respiratory Rate 16 Blood Pressure 208/88 H 202/78 H 183/88 H Blood Pressure [Right Arm] Blood Pressure Mean [Right Arm] Blood Pressure Source Blood Pressure Position Sitting Sitting Sitting Blood Pressure Position [Right Arm] 02 Sat by Pulse Oximetry 89 L 94 L 94 L Oxygen Delivery Method Room Air Nasal Cannula Nasal Cannula Oxygen Flow Rate (LPM) 3 3 09/16/20 17:52 09/16/20 18:00 09/16/20 18:11 Temperature Temperature Source Pulse Rate 89 89 89 Pulse Rate [Radial] Respiratory Rate 16 18 Blood Pressure 180/96 H 207/95 H 213/94 H Blood Pressure [Right Arm] Blood Pressure Mean [Right Arm] Blood Pressure Source Blood Pressure Position Sitting Sitting Sitting Blood Pressure Position [Right Arm] 02 Sat by Pulse Oximetry 95 99 96 Oxygen Delivery Method Nasal Cannula Nasal Cannula Nasal Cannula Oxygen Flow Rate (LPM) 3 3 3 09/16/20 19:11 Temperature 97.8 F Temperature Source Oral Pulse Rate 92 H Pulse Rate [Radial] Respiratory Rate 15 Blood Pressure 190/67 H Blood Pressure [Right Arm] Blood Pressure Mean [Right Arm] Blood Pressure Source Automatic Cuff Blood Pressure Position Sitting Blood Pressure Position [Right Arm] 02 Sat by Pulse Oximetry Oxygen Delivery Method Room Air Oxygen Flow Rate (LPM) - Lab Data Lab Results 09/16/20 17:31: WBC 16.5 H, RBC 5.07, Hgb 14.8, Hct 44.5, MCV 87.8, MCH 29.1, MCHC 33.2, RDW 13.6, Plt Count 305, MPV 8.4, Neut % (Auto) 83.9 H, Lymph % (Auto) 9.3 L, [place] % (Auto) 4.2, Eos % (Auto) 2.3, Baso % (Auto) 0.3, Neut # (Auto) 13.9 H, Lymph # (Auto) 1.5, [place] # (Auto) 0.7, Eos # (Auto) 0.4, Baso # (Auto) 0.1, Total Counted 100, Neutrophils % (Manual) 83 H, Lymphocytes % (Manual) 12, Monocytes % (Manual) 2, Eosinophils % (Manual) 3, Platelet Estimate Normal, RBC Morphology Normal 09/16/20 17:31: Sodium 140, Potassium 4.1, Chloride 101, Carbon Dioxide 28, Anion Gap 15.1 H, BUN 19 H, Creatinine 1.10 H, Estimated Creat Clear 74, Estimated GFR 50 L, Est GFR ( Amer) 61, Glucose 281 H, Calcium 9.6, Total Bilirubin 1.1, AST 24, ALT 25, Alkaline Phosphatase 210 H, Total Protein 8.6 H, Albumin 4.6, Globulin 4.0 H, Albumin/Globulin Ratio 1.2 09/16/20 17:31: Chlamy pneumoniae PCR Not detected, Adenovirus (PCR) Not detected, B. pertussis DNA (PCR) Not detected, Coronavirus OC43 (PCR) Not detected, Coronavirus HKU1 (
--- NOTE | 2020-09-16 17:04 | PC.NURSE ---
Dr Rboerts paged
--- NOTE | 2020-09-16 17:21 | PC.NURSE ---
spoke with Dr Roberts.
--- NOTE | 2020-09-16 17:22 | PC.NURSE ---
Dr Lakia castillo
--- NOTE | 2020-09-16 17:24 | PC.NURSE ---
Dr Dorman returned call.
[2020-09-16 17:54] LABS: Bordetella Pertussis Not Detected (NotDetected); Chlamydophila Pneumoniae, PCR Not Detected (NotDetected); Coronavirus 19, PCR Not Detected (NotDetected); Coronavirus 229E Not Detected (NotDetected); Coronavirus NL63 Not Detected (NotDetected); Coronavirus OC43 Not Detected (NotDetected); Coronovirus HKU1,PCR Not Detected (NotDetected); Human Metapneumovirus Not Detected (NotDetected); Influenza A, PCR Not Detected (NotDetected); Influenza AH1, 2009 Not Detected (NotDetected); Influenza AH1, PCR Not Detected (NotDetected); Influenza AH3,PCR Not Detected (NotDetected); Influenza B, PCR Not Detected (NotDetected); Mycoplasma Pneumoniae, PCR Not Detected (NotDetected); Parainfluenza 1, PCR Not Detected (NotDetected); Parainfluenza 2, PCR Not Detected (NotDetected); Parainfluenza 3, PCR Not Detected (NotDetected); Parainfluenza 4, PCR Not Detected (NotDetected); Respiratory Syncytial Virus Not Detected (NotDetected); Rhinovirus/Enterovirus Not Detected (NotDetected)
[2020-09-16 17:56] LABS: Microscopic, Urine URINE MICROSCOPIC (MICROSCOPIC)
[2020-09-16 17:57] LABS: Basophils # 0.1 K/mm3 (0-0.2); Basophils % 0.3 % (0.1-2.0); Eosinophils # 0.4 K/mm3 (0.0-0.4); Eosinophils % 2.3 % (0.1-12.0); Hematocrit 44.5 % (37.0-47.0); Hemoglobin 14.8 g/dL (12.2-16.2); Lymphocytes # 1.5 K/mm3 (0.7-4.5); Lymphocytes % 9.3 % (10-50); Mean Corpuscular HGB Conc 33.2 g/dL (31.8-35.4); Mean Corpuscular Hemoglobin 29.1 pg (27.0-31.2); Mean Corpuscular Volume 87.8 fl (81-99); Mean Platelet Volume 8.4 fl (7.4-10.4); Monocytes # 0.7 K/mm3 (0.1-1.0); Monocytes % 4.2 % (1.7-9.3); Neutrophils # 13.9 K/mm3 (1.8-7.8); Neutrophils % 83.9 % (37.0-80.0); Platelet Count 305 K/mm3 (142-424); Red Blood Count 5.07 M/mm3 (4.20-5.40); Red Cell Distribution Width 13.6 % (11.5-17.5); White Blood Count 16.5 K/mm3 (4.8-10.8)
[2020-09-16 17:58] LABS: Potassium 4.1 mmoL/L (3.5-5.1); Sodium 140 mmol/L (136-145)
[2020-09-16 17:59] LABS: Chloride 101 mmol/L (98-107)
[2020-09-16 17:59] LABS: Appearance,Urine TURBID (Clear); Bilirubin,Urine Negative (Negative); Blood, Urine 3+ (Negative); Color,Urine YELLOW (Yellow); Glucose,Urine (UA) 3+ (Negative); Ketones,Urine Negative (Negative); Leukocyte Esterase,Urine 2+ (Negative); Nitrate,Urine Negative (Negative); PH,Urine 5.5 (5.0-8.5); Protein,Urine 3+ (Negative); Specific Gravity, Urine 1.025 (1.005-1.030); Urobilinogen,Urine 0.2 EU/dl (0.2)
[2020-09-16 18:00] LABS: Blood Urea Nitrogen 19 mg/dl (7-17); Creatinine Clearance Estimated 74 mL/min (50-200); Estimated Glomerular Filt Rate 50 ml/min (>60); GFR (African American) 61 ML/MIN (>60)
[2020-09-16 18:01] LABS: Alanine Aminotransferase 25 U/L (12-78); Albumin Level 4.6 g/dl (3.5-5.0); Albumin/Globulin Ratio 1.2 (1.1-1.8); Alkaline Phosphatase 210 U/L (38-126); Anion Gap 15.1 mEq/L (5-15); Aspartate Amino Transferase 24 U/L (14-36); Bilirubin,Total 1.1 mg/dl (0.2-1.3); Calcium 9.6 mg/dl (8.4-10.2); Carbon Dioxide 28 mmol/L (22.0-30.0); Glucose 281 mg/dl (74-100); Total Protein,Serum 8.6 g/dl (6.3-8.2)
[2020-09-16 18:02] LABS: MANUAL DIFFERENTIAL MANUAL DIFFERENTIAL (MANUAL DIFF)
[2020-09-16 18:07] LABS: Bacteria,Urine 4+ /lpf; WBC,Urine TNTC #/hpf (0-3)
[2020-09-16 18:11] LABS: Eosinophils % 3 % (0-3); Lymphocytes % 12 % (10-50); Monocytes % 2 % (2-9); Neutrophils % 83 % (42-76); Platelet Estimate Normal; RBC Morphology Normal; Total Cells Counted 100
--- NOTE | 2020-09-16 19:09 | PC.NURSE ---
attempted to call report on patient. receiving nurse unable to take because they are getting their dayshift report.
[2020-09-16 19:35] LABS: Adenovirus,PCR Not Detected (NotDetected)
--- NOTE | 2020-09-16 19:55 | PC.NURSE ---
PT ARRIVED TO FLOOR VIA STRETCHER FROM ED W/STAFF AT 1954
--- NOTE | 2020-09-16 20:10 | HMH.ORTHOCON ---
*Admission Date: 09/16/20 *Reason for consult:: Fracture neck of femur, left hip *History of present illness: Patient is a 65-year-old female seen in the ER for orthopedic consultation regarding her left hip fracture. Her and daughter are by her bedside. Patient says she injured her left hip when she fell down yesterday going down few steps at home, landing on her left side. She says that she has been having left hip and knee pain since the fall and is not able to ambulate. She says she has left hip pain that is made worse with any attempted movements of the left lower extremity. She also reports some left knee pain. She denies any other injuries including head injury, neck injury, back injury, chest or abdominal injury or upper extremity injury. She has peripheral neuropathy at baseline. No history of any dizziness, headache, chest or neck pain. She lives with her family. She has multiple medical comorbidities including uncontrolled type II diabetes, history of multiple CVAs with left-sided weakness, Alzheimer's disease, pancreatitis, coronary artery disease, hypertension, hyperlipidemia, asthma, depression, history of previous MRSA infections, anxiety and migraine among others. She normally is very sedentary and mobilizes indoors using either a cane or walker. She reportedly goes out shopping and when she does she uses a motorized cart. She denies loss of consciousness, chest pain and shortness of breath. Patient is on long-term anticoagulation with Xarelto. Her daughter says she last had Xarelto yesterday. Surgical history includes previous sinus surgery, hysterectomy and CABG. [facility] History I have reviewed the patient's past medical history: Yes Medical History: Reports:: Anxiety, Asthma, Depression, Diabetes Mellitus Type 2, Hyperlipidemia, Hypertension, Migraine, Myocardial Infarction Denies:: Diabetes Mellitus Type 1 *Have you ever received a pneumonia vaccine?: No *Have you received a flu vaccine this season?: No Other Medical History: Reports: Arthritis Other Surgeries: Yes: Hysterectomy-Total, Sinus Surgery Amputation: No Fractures: No - *Social History Smoking Status: Current every day smoker Tobacco Type: cigarettes # Packs/Day (cigarettes): 1 Alcohol Intake: never Alcohol Intake Frequency:: holidays/special occasions only Substance Use Type: denies use *Occupational Status:: other Household Members: spouse *Travel in the last 8 weeks: None - Psychiatric History Pschychiatric History:: Reports:: Anxiety, Depression Family Hx:: Unable to obtain Review of Systems - Review of Systems Review of systems:: pertinent systems reviewed and negative unless documented below - Constitutional Denies chills, Denies fever(s) - Eyes Denies change in vision - ENT Denies abnormal hearing - *Cardiovascular Denies chest pain, Denies shortness of breath - *Respiratory Denies cough, Denies shortness of breath - *Gastrointestinal Denies abdominal pain, Denies change in bowel habits - *Musculoskeletal Reports abnormal walking, Reports joint pain, Reports limited joint movement - Integumentary/Breasts Reports lesions, Reports rash Comments: Fungal infection of abdominal/crural folds. - *Neurologic Reports abnormal walking, Reports memory loss, Denies seizure-like activity, Denies tingling/numbness/burning sensations - Endocrine Denies cold intolerance, Denies heat intolerance Meds Home Medications Medication Instructions Recorded Confirmed Type Atorvastatin Calcium [Lipitor 80mg 80 mg PO DAILY 08/10/18 09/16/20 History Tab] Furosemide [Furosemide 20mg Tab*] 20 mg PO DAILY 08/10/18 09/16/20 History Oxybutynin Chloride [Oxybutynin 15 mg PO DAILY 08/10/18 09/16/20 History Chloride ER] Pantoprazole Sodium [Protonix 40mg 40 mg PO HS 08/10/18 09/16/20 History tablet] Tramadol HCl [Ultram 50mg 50 mg PO Q6HP PRN 08/10/18 09/16/20 History tablet] buPROPion HCL [Wellbutrin SR 150mg
[2020-09-16 21:14] LABS: Hemoglobin A1C 8.6 % (4.0-6.0)
[2020-09-17 00:41] LABS: POC Glucose,Bedside 281 (70-110)
[2020-09-17 04:00] VITALS: BP 143/54; PULSE 100; RESP 16; TEMP 36.9; O2SAT 94
--- NOTE | 2020-09-17 04:44 | PC.NURSE ---
Patient admitted this shift, A&O x 3, no meds or personal belongings were brought to her room. VS WNL, shows no s/s of acute distress at this time, call light within reach, bed at lowest level for safety; will continue to monitor.
[2020-09-17 05:04] VITALS: BMI 36.8
[2020-09-17 07:11] LABS: Basophils # 0.1 K/mm3 (0-0.2); Eosinophils # 0.4 K/mm3 (0.0-0.4); Mean Corpuscular Volume 88.9 fl (81-99); Neutrophils % 71.1 % (37.0-80.0); Red Cell Distribution Width 13.8 % (11.5-17.5)
[2020-09-17 07:14] LABS: Chloride 107 mmol/L (98-107); Sodium 139 mmol/L (136-145)
[2020-09-17 07:15] LABS: Potassium 4.1 mmoL/L (3.5-5.1)
[2020-09-17 07:16] LABS: Basophils % 0.4 % (0.1-2.0); Eosinophils % 3.1 % (0.1-12.0); Hematocrit 37.1 % (37.0-47.0); Lymphocytes # 2.6 K/mm3 (0.7-4.5); Lymphocytes % 18.5 % (10-50); Mean Corpuscular HGB Conc 32.6 g/dL (31.8-35.4); Mean Platelet Volume 9.2 fl (7.4-10.4); Monocytes % 6.9 % (1.7-9.3); Platelet Count 255 K/mm3 (142-424); Red Blood Count 4.17 M/mm3 (4.20-5.40); White Blood Count 14.1 K/mm3 (4.8-10.8)
[2020-09-17 07:17] LABS: Alanine Aminotransferase 14 U/L (12-78); Alkaline Phosphatase 142 U/L (38-126); Aspartate Amino Transferase 21 U/L (14-36); Bilirubin,Total 0.8 mg/dl (0.2-1.3); Blood Urea Nitrogen 18 mg/dl (7-17); Creatinine Clearance Estimated 74 mL/min (50-200); Estimated Glomerular Filt Rate 50 ml/min (>60); GFR (African American) 61 ML/MIN (>60)
[2020-09-17 07:18] LABS: Albumin Level 3.4 g/dl (3.5-5.0); Albumin/Globulin Ratio 1.1 (1.1-1.8); Carbon Dioxide 27 mmol/L (22.0-30.0); Glucose 238 mg/dl (74-100); Total Protein,Serum 6.4 g/dl (6.3-8.2)
[2020-09-17 07:51] LABS: Hemoglobin 12.1 g/dL (12.2-16.2)
[2020-09-17 08:00] VITALS: BP 156/63; PULSE 73; RESP 18; TEMP 36.9; O2SAT 95
--- NOTE | 2020-09-17 08:02 | HMH.HP ---
*Admission Date: 09/16/20 *Chief complaint: Fall with left femoral neck fracture *History of present illness: 65-year-old white female status post stroke, with vascular dementia and some functional issues who uses a cane to walk at home who was leaving her home yesterday and fell down the steps of her porch, falling and fracturing the left femoral neck of her left hip. Brought to the emergency department where this was diagnosed. Admitted to hospital for further evaluation and orthopedic consultation. This morning she feels well, denies pain and reports that the pain medicine is doing a good job keeping her pain under control. No family was in the room this morning. [facility] History I have reviewed the patient's past medical history: Yes Medical History: Reports:: Anxiety, Asthma, Coronary Artery Disease, Depression, Diabetes Mellitus Type 2, Hyperlipidemia, Hypertension, Migraine, Myocardial Infarction Denies:: Diabetes Mellitus Type 1, MRSA *Have you ever received a pneumonia vaccine?: Yes *Have you received a flu vaccine this season?: Yes Other Medical History: Reports: Arthritis Comment:: Patient reports bypass surgery in the remote past, cannot remember the year. Reports that she does not wear oxygen at home. Other Surgeries: Yes: CABG, Hysterectomy-Total, Sinus Surgery Amputation: No Fractures: No - *Social History Last grade of school completed: Some college Smoking Status: Former smoker Tobacco Type: cigarettes # Packs/Day (cigarettes): 1 Alcohol Intake: current Alcohol Intake Frequency:: holidays/special occasions only Substance Use Type: denies use *Occupational Status:: retired Housing: house Household Members: spouse *Travel in the last 8 weeks: None - Psychiatric History Pschychiatric History:: Reports:: Anxiety, Depression Family Hx:: No significant family history Review of Systems - Review of Systems Review of systems:: pertinent systems reviewed and negative unless documented below Patient denies chest pain or shortness of air but does not engage in a lot of physical activity. Does ambulate around her home fairly frequently without chest pain or shortness of air. Does report baseline edema in both legs, takes Lasix on a daily basis for this. Reports that she has asthma and takes inhalers at home but does not seem to uses on a regular basis. She has very fluid conversation but is afflicted with memory loss especially as it relates to her medication meds and dosages and previous medical events. For example tells me that her bypass surgery was in 1974 -which would make her 23 at the time of her bypass surgery. When I asked her about this she states I have a problem with dates. - *Neurologic Reports abnormal walking, Reports memory loss, Denies abnormal hearing, Denies seizure-like activity, Denies tingling/numbness/burning sensations Meds Home Medications Medication Instructions Recorded Confirmed Type Atorvastatin Calcium [Lipitor 80mg 80 mg PO DAILY 08/10/18 09/16/20 History Tab] Furosemide [Furosemide 20mg Tab*] 20 mg PO DAILY 08/10/18 09/16/20 History Oxybutynin Chloride [Oxybutynin 15 mg PO DAILY 08/10/18 09/16/20 History Chloride ER] Pantoprazole Sodium [Protonix 40mg 40 mg PO HS 08/10/18 09/16/20 History tablet] Tramadol HCl [Ultram 50mg 50 mg PO Q6HP PRN 08/10/18 09/16/20 History tablet] buPROPion HCL [Wellbutrin SR 150mg 150 mg PO DAILY 08/10/18 09/16/20 History Tablet] Cholecalciferol (Vitamin D3) 1,000 unit PO DAILY 03/26/20 09/16/20 History [Vitamin D3 1,000 Unit Cap] Memantine HCl [Memantine 5mg 10 mg PO BID 03/26/20 09/16/20 History Tablet] Metoprolol Tartrate [Lopressor 12.5 mg PO BID 03/26/20 09/16/20 History 25mg tablet] Rivaroxaban [Xarelto 20mg Tablet*] 20 mg PO QPMWM 03/26/20 09/16/20 History Gabapentin [Gabapentin 300mg Cap] 300 mg PO TID #90 cap 03/30/20 09/16/20 Rx Allergies Allergy/AdvReac Type Severity Reaction Status Date /
[2020-09-17 09:58] LABS: Calcium 8.3 mg/dl (8.4-10.2)
--- NOTE | 2020-09-17 13:44 | P.CONPHA_ITS ---
[facility] Pharmacy VTE Monitoring - Patient Demographics Admission date: 09/16/20 Report Date: 09/17/20 Time: 13:45 Allergies/Adverse Reactions: Patient Allergies erythromycin base [ERYTHROMYCIN BASE] Allergy (Unknown, Verified 07/17/17 20:45) Penicillins [PENICILLINS] Allergy (Unknown, Verified 07/17/17 20:45) Sulfa (Sulfonamide Antibiotics) [SULFA (SULFONAMIDE ANTIBIOTICS)] Allergy (Unknown, Verified 07/17/17 20:45) sulfamethoxazole [From BACTRIM] Allergy (Unknown, Verified 07/17/17 20:45) tetracycline [TETRACYCLINE] Allergy (Unknown, Verified 07/17/17 20:45) trimethoprim [From BACTRIM] Allergy (Unknown, Verified 07/17/17 20:45) Height: 1.57 m Weight: 90.747 kg Patient Problems: Current Active Problems Obesity (BMI 30.0-34.9) (Acute) Diabetic peripheral neuropathy (Acute) Hemiplegia of left nondominant side as late effect of cerebral infarction (Acute) Closed left hip fracture (Acute) Hypertension (Acute) Vascular dementia (Acute) History of arteriosclerotic cardiovascular disease (Acute) Peripheral edema (Acute) Diabetes mellitus type 2 in obese (Acute) - VTE Risk Labs: VTE Related Lab Results Hgb 12.1 g/dL (12.2-16.2) L D 09/17/20 06:30 Hct 37.1 % (37.0-47.0) 09/17/20 06:30 Plt Count 255 K/mm3 (142-424) 09/17/20 06:30 BUN 18 mg/dl (7-17) H 09/17/20 06:30 Creatinine 1.10 mg/dl (0.52-1.04) H 09/17/20 06:30 Estimated Creat Clear 74 mL/min (50-200) 09/17/20 06:30 - Prophylaxis VTE Prophylaxis Ordered?: Yes Types of VTE Prophylaxis: TEDS Knee High Location of Applied Device: Bilateral Lower Extremeties
[2020-09-17 16:00] VITALS: BP 157/67; PULSE 71; RESP 18; TEMP 37.1; O2SAT 95
[2020-09-17 20:00] VITALS: BP 159/66; PULSE 77; RESP 17; TEMP 38.6; O2SAT 96
[2020-09-17 21:14] LABS: POC Glucose,Bedside 178 (70-110)
[2020-09-17 21:14] LABS: POC Glucose,Bedside 275 (70-110)
[2020-09-17 21:27] VITALS: TEMP 37.3
[2020-09-18] VITALS (20 sets, daily range): BP systolic 138–187; BP diastolic 53–106; PULSE 82–93; RESP 16–20; TEMP 36.4–43; O2SAT 91–97; BMI 37.4; BMI 37.3
[2020-09-18 00:48] LABS: POC Glucose,Bedside 213 (70-110)
[2020-09-18 00:48] LABS: POC Glucose,Bedside 214 (70-110)
[2020-09-18 06:38] LABS: POC Glucose,Bedside 280 (70-110)
[2020-09-18 06:50] LABS: Chloride 104 mmol/L (98-107); Sodium 138 mmol/L (136-145)
[2020-09-18 06:51] LABS: Potassium 4.4 mmoL/L (3.5-5.1)
[2020-09-18 06:53] LABS: Alanine Aminotransferase 14 U/L (12-78); Alkaline Phosphatase 148 U/L (38-126); Aspartate Amino Transferase 18 U/L (14-36); Bilirubin,Total 0.9 mg/dl (0.2-1.3); Blood Urea Nitrogen 19 mg/dl (7-17); Estimated Glomerular Filt Rate 45 ml/min (>60); GFR (African American) 55 ML/MIN (>60)
[2020-09-18 06:54] LABS: Albumin Level 3.4 g/dl (3.5-5.0); Albumin/Globulin Ratio 1.1 (1.1-1.8); Anion Gap 14.4 mEq/L (5-15); Calcium 8.3 mg/dl (8.4-10.2); Carbon Dioxide 24 mmol/L (22.0-30.0); Globulin 3.2 g/dL (1.3-3.2); Glucose 309 mg/dl (74-100); Total Protein,Serum 6.6 g/dl (6.3-8.2)
--- NOTE | 2020-09-18 06:58 | HMH.ACPN2 ---
Internal Medicine - PN: Subj *Date: 09/18/20 *Time: 07:00 Interval history: No acute events over the last 24 hours. Patient reports pain from the left hip. She denies chest pain or shortness of breath. Patient Liliane, which she takes for history of paroxysmal atrial fibrillation and suspected embolic strokes, has now been held for over 48 hours. Exam Vital signs and Labs for Last 24 Hours: Temp Pulse Resp BP Pulse Ox 100.6 F H 93 H 18 138/69 94 L 09/18/20 04:00 09/18/20 04:00 09/18/20 04:00 09/18/20 04:00 09/18/20 04:00 Laboratory Results - last 24 hr 09/17/20 05:21: POC Glucose 178 H 09/17/20 06:30: WBC 14.1 H, RBC 4.17 L, Hgb 12.1 L D, Hct 37.1, MCV 88.9, MCH 29.0, MCHC 32.6, RDW 13.8, Plt Count 255, MPV 9.2, Neut % (Auto) 71.1, Lymph % (Auto) 18.5, [place] % (Auto) 6.9, Eos % (Auto) 3.1, Baso % (Auto) 0.4, Neut # (Auto) 10.0 H, Lymph # (Auto) 2.6, [place] # (Auto) 1.0, Eos # (Auto) 0.4, Baso # (Auto) 0.1 09/17/20 06:30: Sodium 139, Potassium 4.1, Chloride 107, Carbon Dioxide 27, Anion Gap 5.0, BUN 18 H, Creatinine 1.10 H, Estimated Creat Clear 74, Estimated GFR 50 L, Est GFR ( Amer) 61, Glucose 238 H, Calcium 8.3 L D, Total Bilirubin 0.8, AST 21, ALT 14 D, Alkaline Phosphatase 142 H, Total Protein 6.4 D, Albumin 3.4 L D, Globulin 3.0, Albumin/Globulin Ratio 1.1 09/17/20 11:32: POC Glucose 275 H 09/17/20 16:13: POC Glucose 214 H 09/17/20 20:58: POC Glucose 213 H 09/18/20 06:15: POC Glucose 280 H I & O for Last 24 hours: Intake & Output 09/15/20 09/16/20 09/17/20 09/18/20 11:59 11:59 11:59 11:59 Intake Total 1084 / 1084 1240 / 1240 Output Total 600 / 600 1600 / 1600 Balance 484 / 484 -360 / -360 Weight 200 lb 1 oz Microbiology Reports for the Last 24 Hours: Microbiology 09/16/20 17:50 Urine,Catheterized Urine Culture - Final Escherichia coli Narrative: Patient is awake, alert, oriented to person, place, time. Heart has a regular rate and rhythm. Lungs are clear to auscultation. Abdomen is soft. Lower extremities have 1+ edema with more significant edema on the left ankle. Both lower extremities are neurovascularly intact. Assessment and Plan (1) Closed left hip fracture Status: Acute Category: Medical Code(s): S72.002A - Fracture of unspecified part of neck of left femur, initial encounter for closed fracture (2) Hypertension Status: Acute Category: Medical Code(s): I10 - Essential (primary) hypertension (3) Diabetic peripheral neuropathy Status: Acute Category: Medical Code(s): E11.42 - Type 2 diabetes mellitus with diabetic polyneuropathy (4) Hemiplegia of left nondominant side as late effect of cerebral infarction Status: Acute Category: Medical Code(s): I69.354 - Hemiplegia and hemiparesis following cerebral infarction affecting left non-dominant side (5) Obesity (BMI 30.0-34.9) Status: Acute Category: Medical Code(s): E66.9 - Obesity, unspecified (6) Vascular dementia Status: Acute Category: Medical Code(s): F01.50 - Vascular dementia without behavioral disturbance (7) History of arteriosclerotic cardiovascular disease Status: Acute Category: Medical Code(s): Z86.79 - Personal history of other diseases of the circulatory system (8) Peripheral edema Status: Acute Category: Medical Code(s): R60.9 - Edema, unspecified (9) Diabetes mellitus type 2 in obese Status: Acute Category: Medical Code(s): E11.69 - Type 2 diabetes mellitus with other specified complication; E66.9 - Obesity, unspecified (10) Paroxysmal atrial fibrillation Status: Acute Category: Medical Code(s): I48.0 - Paroxysmal atrial fibrillation - Assessment and plan all Dx Assessment and Plan for all problems:: 1. Patient is medically stable and is of acceptable cardiovascular risk to proceed with surgery for her left hip fracture 2. Postoperatively patient Xarelto can be restarted for her paro
[2020-09-18 07:02] LABS: Basophils # 0.1 K/mm3 (0-0.2); Basophils % 0.4 % (0.1-2.0); Eosinophils # 0.1 K/mm3 (0.0-0.4); Hematocrit 36.7 % (37.0-47.0); Hemoglobin 11.7 g/dL (12.2-16.2); Lymphocytes # 2.4 K/mm3 (0.7-4.5); Lymphocytes % 16.4 % (10-50); Mean Corpuscular HGB Conc 31.9 g/dL (31.8-35.4); Mean Corpuscular Hemoglobin 28.5 pg (27.0-31.2); Mean Corpuscular Volume 89.5 fl (81-99); Mean Platelet Volume 8.7 fl (7.4-10.4); Monocytes # 0.8 K/mm3 (0.1-1.0); Monocytes % 5.3 % (1.7-9.3); Neutrophils # 11.2 K/mm3 (1.8-7.8); Neutrophils % 76.9 % (37.0-80.0); Platelet Count 255 K/mm3 (142-424); Red Blood Count 4.11 M/mm3 (4.20-5.40); Red Cell Distribution Width 13.5 % (11.5-17.5); White Blood Count 14.5 K/mm3 (4.8-10.8)
[2020-09-18 07:16] LABS: Creatinine Clearance Estimated 69 mL/min (50-200)
[2020-09-18 12:23] LABS: POC Glucose,Bedside 226 (70-110)
--- NOTE | 2020-09-18 14:38 | ECG_ITS ---
APPROVED REPORT Exam: Resting ECG HR:87 bpm ECG Measurements Heart Rate 87 AXES CO 170 P 49 QRSd 84 QRS -13 QT 382 T 53 QTc 459 Conclusion Normal sinus rhythm Normal ECG Electronically signed by : Hugo Dorman, 09/19/2020 22:01:12
[2020-09-18 16:09] LABS: POC Glucose,Bedside 242 (70-110)
--- NOTE | 2020-09-18 16:21 | P.PN_ITS ---
[facility] Anesthesia Checklist - Patient Identification Patient Identification: Arm Band - Structural Data Admitted From: Home Planned Operative Procedure/s: Left hip arthroplasty Consent for Planned Operative Procedure(s) Verified: Yes - NPO Status Verified Time NPO: 00:00 - Airway Assessment C-Spine Mobility Assessed: Yes TMJ Mobility Assessed: Yes Dentition: Edentulous - Neurological Assessment Level of Consciousness: Awake Hx Seizures: No Numbness or tingling in extremities: No - Anesthesia Plan Anesthesia Risk discussed: Yes Anesthesia Plan: Verified ASA Class: III Anesthesia Type: General [facility] History I have reviewed the patient's past medical history: Yes Medical History: Reports:: Anxiety, Asthma, Coronary Artery Disease, Cerebrovascular Accident (x 2), Depression, Diabetes Mellitus Type 2, Gastroesophageal Reflux Disease(GERD), Hyperlipidemia, Hypertension, Migraine, Myocardial Infarction Denies:: Diabetes Mellitus Type 1, MRSA *Have you ever received a pneumonia vaccine?: Yes *Have you received a flu vaccine this season?: Yes Other Medical History: Reports: Arthritis Anesthesia experience/problems:: None Other Surgeries: Yes: CABG, Hysterectomy-Total, Sinus Surgery Amputation: No Fractures: No - *Social History Last grade of school completed: Some college Smoking Status: Former smoker Tobacco Type: cigarettes # Packs/Day (cigarettes): 1 Alcohol Intake: current Alcohol Intake Frequency:: holidays/special occasions only Substance Use Type: denies use *Occupational Status:: retired Housing: house Household Members: spouse *Travel in the last 8 weeks: None - Psychiatric History Pschychiatric History:: Reports:: Anxiety, Depression Family Hx:: No significant family history
--- NOTE | 2020-09-18 17:13 | PC.NURSE ---
Pt has been pleasant and cooperative this shift. A&O X4. Pt has had frequent complaints of pain and has been medicated with Morphine per MAR with favorable results. Pt is receiving O2 @ 2 LPM via NC with sats. >90%. Lungs CTA. No edema noted. Skin is C/D/I. Pt has been turned/repositioned Q2H this shift. F/C is patent and draining clear, yellow urine at bedside to gravity. No BM thus far today. 18 G peripheral IV in the LT forearm is patent and infusing NS @ 100 ML/HR. VSS. Call light within reach. Will continue to monitor.
--- NOTE | 2020-09-18 19:00 | P.PN_ITS ---
[facility] Anesthesia Record Part I Intake, IV Amount: 900 Estimated blood loss (mL): 300 Urine output (mL): 600 Blood Pressure: 148/66 SaO2: 97 Pulse Rate: 84 Respiratory Rate: 18 Temperature: 98.6 F Patient is:: Drowsy, Oral/Nasal airway Stable to PACU at:: 18:56
--- NOTE | 2020-09-18 19:03 | XR_ITS ---
PROCEDURE INFORMATION: Exam: XR Left Hip Exam date and time: 09/18/2020 7:03 PM Age: 65 years old Clinical indication: Device placement; Prior surgery; Surgery date: Post-operative (0-2 days); Surgery type: Left hip hemiarthroplasty. ; Patient HX: Patient just came out of surgery for left hip. Exam done portable. TECHNIQUE: Imaging protocol: XR Left hip. Views: 2 or 3 views hip with pelvis when performed. COMPARISON: CT HIP LT WO CON 09/16/2020 5:08 PM FINDINGS: Bones/joints: There has been total left hip replacement surgery. No evidence of acute fracture dislocation discrete bony destruction or prosthetic loosening is seen. Subcutaneous air is demonstrated. Surgical drains are seen. Soft tissues: See Bones/joints finding. IMPRESSION: There has been total left hip replacement surgery. No evidence of acute fracture dislocation discrete bony destruction or prosthetic loosening is seen. Subcutaneous air is demonstrated. Surgical drains are seen.
--- NOTE | 2020-09-18 19:38 | PC.NURSE ---
patient up to floor via stretcher from surgery.
--- NOTE | 2020-09-18 19:44 | HMH.OPNOTE ---
Date of procedure: 09/18/20 Pre-op Diagnosis:: Displaced Fracture neck of femur, LEFT hip Post-op Diagnosis:: Same Procedure performed:: Uncemented bipolar hemiarthroplasty, LEFT hip Surgeon:: Alfred Roberts MD Dairy Technologist(s):: Jessica Hernandez AIX ADMINISTRATOR:: Other ([facility]) Anesthesia: GETA Estimated blood loss (mL): 300 Clinical Note:: Patient is an 65-year-old female who sustained a displaced intracapsular fracture neck of left femur following a mechanical fall at home couple of days ago. Surgery was delayed as patient is on oral anticoagulation. A hemiarthroplasty is indicated to relieve pain and restore function. The operation is clinically indicated and is the standard of care for this type of fracture. Please refer to my consult note for full details. Operative findings:: Displaced sub capital femoral neck fracture of the left hip as noted on the preoperative hip x-rays. The articular cartilage of the acetabulum is well preserved without evidence of any significant arthritis. The proximal femur bone quality is good. Operative note:: On the day of the procedure the patient and family were met on the floor, and a physical examination was performed. The operating side and site were marked and initialed by me. I reviewed the diagnosis, natural history and management options in detail including both the nonsurgical and surgical. Given the nature of the fracture, I have recommended surgery in the form of a hemiarthroplasty of the left hip. I have discussed the procedure, risks and benefits, alternatives, potential complications and expected outcomes with the patient and family. The complications discussed include but are not limited to infection, injury to nerves and blood vessels, DVT and PE, femur fracture, limb length inequality, dislocation, implant failure, loosening, acetabular wear, osteolysis, periprosthetic femur fracture, heterotopic ossification, abductor weakness and a limp, incomplete relief of pain, incomplete return of function or motion, likely need for further surgery in future including revision, anesthetic/medical complications including heart attack, stroke, transfusion reactions and even . We discussed how any of these events can be devastating. We have discussed nonsurgical alternatives as well. We also discussed the postoperative course including the rehab and physical therapy required. Patient/family understood the risks, agreed to proceed with surgery, signed the consent form and no guarantees or assurances were given or implied. The patient was brought to the operating room and a general anesthesia was administered by the landscape technician. The patient was then transferred onto the operating table and positioned in the right lateral decubitus position with the left hip facing upwards. All the bony prominences were well-padded. The left lower extremity was then prepped and draped in the usual sterile fashion. The entire operative team used isolation suits and room traffic was controlled. The surgical landmarks and incision was marked over the skin with a marking pen. Ioban sterile drape was used to cover the operative site and isolate the perineum completely from the operative field. Administration of prophylactic IV antibiotics (Ancef and vancomycin) was confirmed with the landscape technician. A preprocedure timeout was performed as per hospital protocol. A posterior approach was used to the hip joint. An electrocautery was used for hemostasis. The skin incision was made centering over the posterior border of the greater trochanter extending posteriorly in a curvilinear fashion across the buttock. The dissection was carried through subcutaneous tissue down to the fascia cathleen. The fascia cathleen and gluteus fascia were split and a Charnley retractor was placed. The trochanteric bursa was then removed with blunt dissection. The sciatic nerve was identified and kept out of the harm's way throughout the rest of the procedure. The hip was then internally rotated
[2020-09-19 00:35] VITALS: BP 189/77; PULSE 88; RESP 18; TEMP 36.7; O2SAT 95
[2020-09-19 00:53] LABS: POC Glucose,Bedside 305 (70-110)
[2020-09-19 01:35] VITALS: BP 192/82; PULSE 91; RESP 18; TEMP 36.9; O2SAT 89
[2020-09-19 02:35] VITALS: BP 197/87; PULSE 89; RESP 18; TEMP 37.6; O2SAT 97
[2020-09-19 05:23] VITALS: BMI 37.8
[2020-09-19 05:34] LABS: POC Glucose,Bedside 324 (70-110)
--- NOTE | 2020-09-19 05:39 | PC.NURSE ---
Post-op VS obtained by Jaelyn Stroud RN and documented by Jose Gonzalez RN.
--- NOTE | 2020-09-19 06:01 | PC.NURSE ---
patient has had elevated BP this shift; has been asymptomatic resting with eyes closed. Patient was awake during nursing round and asked patient if she was in pain and she said yes with pain score 10/10; explained to patient when in pain she needed to call out for the nurse to get pain medication. Pain medication administered and BP lowered. Call light within reach, bed at lowest level for safety; will continue to monitor.
--- NOTE | 2020-09-19 07:05 | HMH.ACPN2 ---
Internal Medicine - PN: Subj *Date: 09/19/20 *Time: 07:05 Interval history: Patient underwent successful hemiarthroplasty of the left hip yesterday. She denies any problems overnight and at present pain is well controlled. No shortness of breath. Exam Vital signs and Labs for Last 24 Hours: Temp Pulse Resp BP Pulse Ox 99.7 F H 89 18 197/87 H 97 09/19/20 02:35 09/19/20 02:35 09/19/20 02:35 09/19/20 02:35 09/19/20 02:35 Laboratory Results - last 24 hr 09/18/20 06:04: Sodium 138, Potassium 4.4, Chloride 104, Carbon Dioxide 24, Anion Gap 14.4, BUN 19 H, Creatinine 1.20 H, Estimated Creat Clear 69, Estimated GFR 45 L, Est GFR ( Amer) 55 L, Glucose 309 H D, Calcium 8.3 L, Total Bilirubin 0.9, AST 18, ALT 14, Alkaline Phosphatase 148 H, Total Protein 6.6, Albumin 3.4 L, Globulin 3.2, Albumin/Globulin Ratio 1.1 09/18/20 11:35: POC Glucose 226 H 09/18/20 15:54: POC Glucose 242 H 09/18/20 22:00: POC Glucose 305 H* 09/19/20 05:15: POC Glucose 324 H* I & O for Last 24 hours: Intake & Output 09/16/20 09/17/20 09/18/20 09/19/20 11:59 11:59 11:59 11:59 Intake Total 1084 / 1084 1240 / 1240 1020 / 1020 Output Total 600 / 600 1900 / 1900 800 / 800 Balance 484 / 484 -660 / -660 220 / 220 Weight 200 lb 1 oz 202 lb 13.204 oz 205 lb 6 oz Microbiology Reports for the Last 24 Hours: Microbiology 09/16/20 17:50 Urine,Catheterized Urine Culture - Final Escherichia coli - Constitutional no acute distress - *Routine Respiratory Exam Present: CTA bilaterally - *Routine Cardiovascular Exam Present: RRR - *Routine Neurological Exam Present: alert. Absent: sensory deficit Assessment and Plan (1) Closed left hip fracture Status: Acute Category: Medical Code(s): S72.002A - Fracture of unspecified part of neck of left femur, initial encounter for closed fracture (2) Hypertension Status: Acute Category: Medical Code(s): I10 - Essential (primary) hypertension (3) Diabetic peripheral neuropathy Status: Acute Category: Medical Code(s): E11.42 - Type 2 diabetes mellitus with diabetic polyneuropathy (4) Hemiplegia of left nondominant side as late effect of cerebral infarction Status: Acute Category: Medical Code(s): I69.354 - Hemiplegia and hemiparesis following cerebral infarction affecting left non-dominant side (5) Obesity (BMI 30.0-34.9) Status: Acute Category: Medical Code(s): E66.9 - Obesity, unspecified (6) Vascular dementia Status: Acute Category: Medical Code(s): F01.50 - Vascular dementia without behavioral disturbance (7) History of arteriosclerotic cardiovascular disease Status: Acute Category: Medical Code(s): Z86.79 - Personal history of other diseases of the circulatory system (8) Peripheral edema Status: Acute Category: Medical Code(s): R60.9 - Edema, unspecified (9) Diabetes mellitus type 2 in obese Status: Acute Category: Medical Code(s): E11.69 - Type 2 diabetes mellitus with other specified complication; E66.9 - Obesity, unspecified (10) Paroxysmal atrial fibrillation Status: Acute Category: Medical Code(s): I48.0 - Paroxysmal atrial fibrillation - Assessment and plan all Dx Assessment and Plan for all problems:: 1. PT eval today as part of postop protocol 2. Restart patient's Xarelto this evening
[2020-09-19 07:31] LABS: Chloride 111 mmol/L (98-107); Potassium 4.4 mmoL/L (3.5-5.1); Sodium 138 mmol/L (136-145)
[2020-09-19 07:33] LABS: Blood Urea Nitrogen 24 mg/dl (7-17); Creatinine Clearance Estimated 76 mL/min (50-200); Estimated Glomerular Filt Rate 50 ml/min (>60); GFR (African American) 61 ML/MIN (>60)
[2020-09-19 07:34] LABS: Alanine Aminotransferase 9 U/L (12-78); Alkaline Phosphatase 124 U/L (38-126); Anion Gap 14.4 mEq/L (5-15); Aspartate Amino Transferase 23 U/L (14-36); Bilirubin,Total 0.4 mg/dl (0.2-1.3); Carbon Dioxide 17 mmol/L (22.0-30.0); Globulin 2.9 g/dL (1.3-3.2); Glucose 347 mg/dl (74-100); Total Protein,Serum 5.9 g/dl (6.3-8.2)
--- NOTE | 2020-09-19 07:57 | HMH.ANESII ---
[facility] Anesthesia Record Part II Discharge Time: 19:26 Destination: Medical Surgical Department PACU nurse assessment reviewed?: Yes Patient Condition:: Good Anesthesia Complications:: None Swallowing reflex intact?: Yes Cyanosis?: No Blood Pressure: 187/82 Pulse Rate: 87 Temperature: 98.6 F Mental Status: Alert & Oriented Pain level:: 0 Nausea and/or vomitting:: None Intake, IV Amount: 0
[2020-09-19 07:58] VITALS: BP 187/82; PULSE 87; TEMP 37
[2020-09-19 08:53] LABS: Basophils % 0.1 % (0.1-2.0); Eosinophils % 0.2 % (0.1-12.0); Lymphocytes # 1.4 K/mm3 (0.7-4.5); Lymphocytes % 10.3 % (10-50); Mean Corpuscular HGB Conc 32.2 g/dL (31.8-35.4); Mean Corpuscular Hemoglobin 28.6 pg (27.0-31.2); Mean Corpuscular Volume 88.9 fl (81-99); Mean Platelet Volume 9.4 fl (7.4-10.4); Monocytes # 1.1 K/mm3 (0.1-1.0); Monocytes % 7.7 % (1.7-9.3); Neutrophils # 11.3 K/mm3 (1.8-7.8); Neutrophils % 81.6 % (37.0-80.0); Platelet Count 244 K/mm3 (142-424); Red Blood Count 3.48 M/mm3 (4.20-5.40); Red Cell Distribution Width 13.3 % (11.5-17.5); White Blood Count 13.8 K/mm3 (4.8-10.8)
--- NOTE | 2020-09-19 09:32 | HMH.PTEV ---
Physical Therapy Evaluation Rehab PT IP Evaluation Start: 09/18/20 19:36 Freq: ONCE Status: Active Protocol: Document 09/19/20 09:00 PHORAIDEN (Rec: 09/19/20 09:32 PHORNE [id number]) Subjective/History History History 65 yowf adm to [facility] after fall at home with resulting L hip fx, now S/P L hip hemiarthroplasty. She lives with and is generally independent with all mobility despite prior CVA, but has 14 steps to her bedroom and bathroom. Subjective Subjective Pt c/o pain in the L LE and is generally resistant to care. Rehab PT IP Eval Objective Appearance Patient Behavior Passive Patient Orientation Person,Place,Time Difficulty following instructions none Speech Pattern Clear Ambulation Patient Able to Ambulate No Balance Ability to Arise Unable Sitting Balance Leans or slides in chair Standing Balance Unsteady Dynamic Sitting Balance Ability Poor Dynamic Standing Balance Ability Poor Transfers Bed Transfer Ability Maximum x 1 (75% assist) Chair Transfer Ability Maximum x 1 (75% assist) Sit to Stand Bed Transfer Ability Maximum x 1 (75% assist) Sit to Stand Chair Transfer Ability Maximum x 1 (75% assist) Rehab PT IP prob,goals,plan Problems Date of Evaluation: 09/19/20 PT IP Problems Bed Mobility,Transfers,Gait, Self care Rehab Potential Rehab Potential Fair Plan PT Intervention Plan Bed Mobility,Transfers,Gait, Self care,Therapeutic Exercise PT Plan Frequency BID Duration LOS Discharge Goals Bed Transfer Ability Moderate x 1 (50% assist) Sit to Stand Chair Transfer Ability Moderate x 1 (50% assist) Ambulation Assistive Device Rolling Walker Ambulation Distance (feet) 5 Discharge Plan PT Discharge Plan Pt is most appropriate for rehab placement at this time as she will be unable to safely return home without extensive therapy. G -code Required No Eval Complexity Eval Charge Codes 56176 - High Complexity PHYSICIAN CERTIFICATION: I certify the specified therapy services for Bhavani Mckinney are required, authorized, and reviewed every 30 days.
--- NOTE | 2020-09-19 09:46 | HMH.OTEV ---
OT Inpatient Evaluation Rehab OT IP Evaluation Start: 09/18/20 19:36 Freq: ONCE Status: Complete Protocol: Document 09/19/20 09:40 [facility] (Rec: 09/19/20 09:46 [facility] [id number]) Rehab OT IP Assessment Subjective History Pt oriented x 2 on arrival; daughter present during therapy evaluation. Pt was admitted on 09/16/20 due to a fall at home resulting in a L hip fx. Pt had a uncemented bipolar hemiarthoplasty to left hip on 09/18/20. Pt has a past medical history of anxiety, asthma, CAD, CVA, HTN , CO, DM type 2, and hyperlipidemia. Pt reports prior to fall she lived at home with her . Pt claims she was independent with ADLS, but did depend on her to complete all IADLs. Pt did use a rolator during ambulation. Subjective I'm in pain. Objective Patient Orientation Person,Birthday Upper Extremity Gross ROM Min Limitation <25% Bed Mobility bed mobility-scooting,bed mobility - supine/sit,bed mobility - rolling Assist Level Maximum x 2 (75% assist) Transfer Training Sit/Stand Transfer,Sit/Stand/ Step Transfer Assist Level Maximum x 2 (75% assist) Chair Transfer Ability Maximum x 2 (75% assist) Chair Transfer Technique Stand Step Pivot Rehab OT IP prob,goals,plan Problems Date of Evaluation: 09/19/20 OT IP Problems Bed Mobility,Transfers,Gait, Balance,Self care,Safety Rehab Potential Rehab Potential Good Equipment Needs Assistive Devices Rolling / Wheeled Walker Plan OT intervention Plan Bed Mobility,Transfers,Gait, Balance,Self care,Safety, Therapeutic Exercise OT Plan Frequency BID Duration LOS Discharge Goals Bed Mobility Ability Assistance x1 Sit to Stand Chair Transfer Ability Moderate x 1 (50% assist) Chair Transfer Ability Moderate x 1 (50% assist) Chair Transfer Technique Sit to/from Ambulatory Chair Transfer Assistive Devices Rolling Walker Feeding Ability Assist with Tray Set Up Lower Body Dressing Ab
[2020-09-19 12:08] LABS: POC Glucose,Bedside 314 (70-110)
--- NOTE | 2020-09-19 13:37 | SW/DCPLANNER ---
Addendum entered by Catalina Deleon 09/20/20 08:56: [facility] IS NOT IN NETWORK WITH THIS PATIENTS INSURANCE, I SPOKE WITH PATIENT THIS MORNING AFTER MD MADE ROUNDS AND EXPLAINED TO HER ABOUT THE INSURANCE AND TOLD HER [facility] HAS A CONTACT AND IS IN NETWORK AND SHE AGREED TO LET ME SEND IT THERE, WAITING TO HEAR BACK TO WHETHER HER INSURANCE WILL AUTHORIZE HER SKILLED STAY THERE.. I ALSO HAD A TRISTON TALK WITH HER ABOUT REFUSING THERAPY... I EXPLAINED THAT HER INSURANCE WILL NOT AUTHORIZE HER TO GO TO THE [facility] IF SHE CONTINUES TO REFUSE THERAPY, THAT IS THE REASON SHE IS GOING, SHE STATED SHE WILL DO BETTER... WAITING ON A REPLY, PATIENT IS MEDICALLY READY TO DISCHARGE ONCE A BED HAS BEEN OBTAINED. Original Note: WENT IN TO SEE PATIENT WITH DR JUAREZ TODAY, WAS AT BEDSIDE AND WE DISCUSSED DISCHARGE PLANNING AND SHE REQUESTED NOT TO GO TO [facility] OR [facility]... I ASKED HER IF SHE WOULD GO TO [facility] AND SHE STATED SHE WOULD SINCE THEY LIVE IN THAT DIRECTION.. I HAVE SENT A PACKET OF PATIENT INFORMATION TO [facility] AND WAITING TO HEAR TO WHETHER THEY CAN ACCEPT HER OR NOT...IF ACCEPTED SHE MAY DISCHARGE [facility]....
[2020-09-19 16:19] LABS: POC Glucose,Bedside 342 (70-110)
[2020-09-19 18:15] VITALS: O2SAT 93
--- NOTE | 2020-09-19 19:19 | HMH.ORTHPN ---
Subjective Date: 09/19/20 Time: 12:30 Principal diagnosis: Status post hemiarthroplasty, left hip Interval history: Patient is status post bipolar hemiarthroplasty left hip, post op day #1. Patient is lying down on the bed; she says she is doing well and reports no problems. Patient has minimal pain and says it's well-controlled with medication. No history of any nausea or vomiting. No history of any cough, chest pain, shortness of breath or palpitations. Patient says she is eating and drinking well. No history of any distal tingling or numbness. She reports that she sat in the chair for a while. Her is by the bedside. PN: Obj Ex Vital signs: Temp Pulse Resp BP Pulse Ox 98.6 F 87 18 187/82 H 93 L 09/19/20 07:58 09/19/20 07:58 09/19/20 02:35 09/19/20 07:58 09/19/20 18:15 Narrative: Laboratory Results - last 24 hr 09/18/20 22:00: POC Glucose 305 H* 09/19/20 05:15: POC Glucose 324 H* 09/19/20 06:21: Sodium 138, Potassium 4.4, Chloride 111 H, Carbon Dioxide 17 L D, Anion Gap 14.4, BUN 24 H D, Creatinine 1.10 H, Estimated Creat Clear 76, Estimated GFR 50 L, Est GFR ( Amer) 61, Glucose 347 H, Calcium 8.0 L, Total Bilirubin 0.4, AST 23 D, ALT 9 L D, Alkaline Phosphatase 124, Total Protein 5.9 L, Albumin 3.0 L D, Globulin 2.9, Albumin/Globulin Ratio 1.0 L 09/19/20 07:51: WBC 13.8 H, RBC 3.48 L, Hgb 10.0 L, Hct 31.0 L, MCV 88.9, MCH 28.6, MCHC 32.2, RDW 13.3, Plt Count 244, MPV 9.4, Neut % (Auto) 81.6 H, Lymph % (Auto) 10.3, [place] % (Auto) 7.7, Eos % (Auto) 0.2, Baso % (Auto) 0.1, Neut # (Auto) 11.3 H, Lymph # (Auto) 1.4, [place] # (Auto) 1.1 H, Eos # (Auto) 0.0, Baso # (Auto) 0.0 09/19/20 11:54: POC Glucose 314 H* 09/19/20 16:01: POC Glucose 342 H* Microbiology 09/16/20 17:50 Urine,Catheterized Urine Culture - Final Escherichia coli Intake & Output 09/17/20 09/18/20 09/19/20 09/20/20 11:59 11:59 11:59 11:59 Intake Total 1084 / 1084 1240 / 1240 1500 / 1500 840 / 840 Output Total 600 / 600 1900 / 1900 1400 / 1400 200 / 200 Balance 484 / 484 -660 / -660 100 / 100 640 / 640 Weight 200 lb 1 oz 202 lb 13.204 oz 205 lb 6 oz Exam General appearance: alert, active, awake, no acute distress Cardiovascular: regular rate & rhythm Respiratory: No respiratory distress noted, speaks in full sentences ABD: soft and non tender Neuro: alert, awake, oriented x 3 On examination of the lower extremities the limb lengths are equal. Thigh and calf are soft and nontender. On examination of the LEFT hip the dressings are clean, dry and intact. There is soakage of the dressings. Bilateral lower extremity edema noted. Distal pulses are 1+ bilaterally. Altered sensation both lower extremities at baseline secondary to peripheral neuropathy. No motor deficits noted distally. - Urinary Catheter Management Falcon Cath placed during this visit: no Progress Note: A&P (1) Closed left hip fracture Status: Acute (2) Hypertension Status: Acute (3) Diabetic peripheral neuropathy Status: Acute (4) Hemiplegia of left nondominant side as late effect of cerebral infarction Status: Acute (5) Obesity (BMI 30.0-34.9) Status: Acute (6) Vascular dementia Status: Acute (7) History of arteriosclerotic cardiovascular disease Status: Acute (8) Peripheral edema Status: Acute (9) Diabetes mellitus type 2 in obese Status: Acute (10) Paroxysmal atrial fibrillation Status: Acute Assessment and Plan for All Diagnoses:: I have reviewed the clinical findings and progress with the patient and her . Patient is doing well from an orthopedic standpoint and reports no problems. Patient started mobilization weightbearing as tolerated on the LEFT side with physical therapy and to continue the same. Patient is Xarelto can be restarted which should suffice for DVT prophylaxis. Continue abduction pillow when in bed and continue standard precautions for the posterior ceci
--- NOTE | 2020-09-19 19:47 | PC.NURSE ---
Pt has slept most of this shift. Abductor pillow has remained in place while pt is in bed. Falcon cath d/c'd this shift. No other acute changes or complaints at this time.
[2020-09-19 20:00] VITALS: O2SAT 91
[2020-09-19 22:34] LABS: POC Glucose,Bedside 337 (70-110)
[2020-09-20 06:55] LABS: Basophils % 0.2 % (0.1-2.0); Eosinophils # 0.1 K/mm3 (0.0-0.4); Eosinophils % 0.7 % (0.1-12.0); Hemoglobin 9.4 g/dL (12.2-16.2); Lymphocytes % 15.7 % (10-50); Mean Corpuscular HGB Conc 32.3 g/dL (31.8-35.4); Mean Corpuscular Hemoglobin 29.2 pg (27.0-31.2); Mean Corpuscular Volume 90.2 fl (81-99); Mean Platelet Volume 8.9 fl (7.4-10.4); Monocytes # 0.9 K/mm3 (0.1-1.0); Monocytes % 6.8 % (1.7-9.3); Neutrophils # 9.8 K/mm3 (1.8-7.8); Neutrophils % 76.5 % (37.0-80.0); Platelet Count 262 K/mm3 (142-424); Red Blood Count 3.21 M/mm3 (4.20-5.40); Red Cell Distribution Width 13.4 % (11.5-17.5); White Blood Count 12.8 K/mm3 (4.8-10.8)
[2020-09-20 06:58] LABS: Chloride 107 mmol/L (98-107); Sodium 137 mmol/L (136-145)
[2020-09-20 06:59] LABS: Potassium 3.9 mmoL/L (3.5-5.1)
[2020-09-20 07:01] LABS: Blood Urea Nitrogen 27 mg/dl (7-17); Creatinine Clearance Estimated 64 mL/min (50-200); Estimated Glomerular Filt Rate 41 ml/min (>60); GFR (African American) 50 ML/MIN (>60)
[2020-09-20 07:02] LABS: Anion Gap 9.9 mEq/L (5-15); Calcium 8.6 mg/dl (8.4-10.2); Carbon Dioxide 24 mmol/L (22.0-30.0); Glucose 394 mg/dl (74-100)
[2020-09-20 07:03] LABS: POC Glucose,Bedside 391 (70-110)
--- NOTE | 2020-09-20 07:11 | HMH.ACPN2 ---
Internal Medicine - PN: Subj *Date: 09/20/20 *Time: 07:11 Interval history: Patient without complaints. No acute events in the last 24 hours. Exam Vital signs and Labs for Last 24 Hours: Temp Pulse Resp BP Pulse Ox 98.6 F 87 18 187/82 H 91 L 09/19/20 07:58 09/19/20 07:58 09/19/20 02:35 09/19/20 07:58 09/19/20 20:00 Laboratory Results - last 24 hr 09/19/20 06:21: Sodium 138, Potassium 4.4, Chloride 111 H, Carbon Dioxide 17 L D, Anion Gap 14.4, BUN 24 H D, Creatinine 1.10 H, Estimated Creat Clear 76, Estimated GFR 50 L, Est GFR ( Amer) 61, Glucose 347 H, Calcium 8.0 L, Total Bilirubin 0.4, AST 23 D, ALT 9 L D, Alkaline Phosphatase 124, Total Protein 5.9 L, Albumin 3.0 L D, Globulin 2.9, Albumin/Globulin Ratio 1.0 L 09/19/20 07:51: WBC 13.8 H, RBC 3.48 L, Hgb 10.0 L, Hct 31.0 L, MCV 88.9, MCH 28.6, MCHC 32.2, RDW 13.3, Plt Count 244, MPV 9.4, Neut % (Auto) 81.6 H, Lymph % (Auto) 10.3, [place] % (Auto) 7.7, Eos % (Auto) 0.2, Baso % (Auto) 0.1, Neut # (Auto) 11.3 H, Lymph # (Auto) 1.4, [place] # (Auto) 1.1 H, Eos # (Auto) 0.0, Baso # (Auto) 0.0 09/19/20 11:54: POC Glucose 314 H* 09/19/20 16:01: POC Glucose 342 H* 09/19/20 21:07: POC Glucose 337 H* 09/20/20 05:02: POC Glucose 391 H* 09/20/20 06:37: WBC 12.8 H, RBC 3.21 L, Hgb 9.4 L, Hct 29.0 L, MCV 90.2, MCH 29.2, MCHC 32.3, RDW 13.4, Plt Count 262, MPV 8.9, Neut % (Auto) 76.5, Lymph % (Auto) 15.7, [place] % (Auto) 6.8, Eos % (Auto) 0.7, Baso % (Auto) 0.2, Neut # (Auto) 9.8 H, Lymph # (Auto) 2.0, [place] # (Auto) 0.9, Eos # (Auto) 0.1, Baso # (Auto) 0.0 09/20/20 06:37: Sodium 137, Potassium 3.9, Chloride 107, Carbon Dioxide 24 D, Anion Gap 9.9, BUN 27 H, Creatinine 1.30 H, Estimated Creat Clear 64, Estimated GFR 41 L, Est GFR ( Amer) 50 L, Glucose 394 H, Calcium 8.6 I & O for Last 24 hours: Intake & Output 09/17/20 09/18/20 09/19/20 09/20/20 11:59 11:59 11:59 11:59 Intake Total 1084 / 1084 1240 / 1240 1500 / 1500 840 / 840 Output Total 600 / 600 1900 / 1900 1400 / 1400 200 / 200 Balance 484 / 484 -660 / -660 100 / 100 640 / 640 Weight 200 lb 1 oz 202 lb 13.204 oz 205 lb 6 oz - Constitutional no acute distress - *Routine Respiratory Exam Present: CTA bilaterally - *Routine Cardiovascular Exam Present: RRR - *Routine Abdominal Exam Present: soft, normoactive bowel sounds. Absent: tenderness - *Routine Extremities Exam Present: edema, pulses intact. Absent: cyanosis, clubbing Assessment and Plan (1) Closed left hip fracture Status: Acute Category: Medical Code(s): S72.002A - Fracture of unspecified part of neck of left femur, initial encounter for closed fracture (2) Hypertension Status: Acute Category: Medical Code(s): I10 - Essential (primary) hypertension (3) Diabetic peripheral neuropathy Status: Acute Category: Medical Code(s): E11.42 - Type 2 diabetes mellitus with diabetic polyneuropathy (4) Hemiplegia of left nondominant side as late effect of cerebral infarction Status: Acute Category: Medical Code(s): I69.354 - Hemiplegia and hemiparesis following cerebral infarction affecting left non-dominant side (5) Obesity (BMI 30.0-34.9) Status: Acute Category: Medical Code(s): E66.9 - Obesity, unspecified (6) Vascular dementia Status: Acute Category: Medical Code(s): F01.50 - Vascular dementia without behavioral disturbance (7) History of arteriosclerotic cardiovascular disease Status: Acute Category: Medical Code(s): Z86.79 - Personal history of other diseases of the circulatory system (8) Peripheral edema Status: Acute Category: Medical Code(s): R60.9 - Edema, unspecified (9) Diabetes mellitus type 2 in obese Status: Acute Category: Medical Code(s): E11.69 - Type 2 diabetes mellitus with other specified complication; E66.9 - Obesity, unspecified (10) Paroxysmal atrial fibrillation Status: Acute Category: Medical Code(s): I48.0 - Paroxysmal atrial fibrillation - As
[2020-09-20 11:51] LABS: POC Glucose,Bedside 382 (70-110)
--- NOTE | 2020-09-20 13:25 | HMH.ORTHPN ---
Subjective Date: 09/20/20 Time: 12:45 Principal diagnosis: Status post hemiarthroplasty, left hip Interval history: Patient is status post bipolar hemiarthroplasty, left hip, post op day #2. Patient is sitting out in the chair; she says she is doing well and reports no problems. Patient has minimal pain and says it's well-controlled with medication. No history of any nausea or vomiting. No history of any cough, chest pain, shortness of breath or palpitations. Patient says she is eating and drinking well. No history of any distal tingling or numbness. She is needing a lot of assistance to mobilize and not participating well with physical therapy. PN: Obj Ex Vital signs: Temp Pulse Resp BP Pulse Ox 98.6 F 87 18 187/82 H 91 L 09/19/20 07:58 09/19/20 07:58 09/19/20 02:35 09/19/20 07:58 09/19/20 20:00 Narrative: Laboratory Results - last 24 hr 09/19/20 16:01: POC Glucose 342 H* 09/19/20 21:07: POC Glucose 337 H* 09/20/20 05:02: POC Glucose 391 H* 09/20/20 06:37: WBC 12.8 H, RBC 3.21 L, Hgb 9.4 L, Hct 29.0 L, MCV 90.2, MCH 29.2, MCHC 32.3, RDW 13.4, Plt Count 262, MPV 8.9, Neut % (Auto) 76.5, Lymph % (Auto) 15.7, [place] % (Auto) 6.8, Eos % (Auto) 0.7, Baso % (Auto) 0.2, Neut # (Auto) 9.8 H, Lymph # (Auto) 2.0, [place] # (Auto) 0.9, Eos # (Auto) 0.1, Baso # (Auto) 0.0 09/20/20 06:37: Sodium 137, Potassium 3.9, Chloride 107, Carbon Dioxide 24 D, Anion Gap 9.9, BUN 27 H, Creatinine 1.30 H, Estimated Creat Clear 64, Estimated GFR 41 L, Est GFR ( Amer) 50 L, Glucose 394 H, Calcium 8.6 09/20/20 11:31: POC Glucose 382 H* Exam General appearance: alert, active, awake, no acute distress; obese Cardiovascular: regular rate & rhythm, normal peripheral pulses Respiratory: No respiratory distress noted, speaks in full sentences ABD: soft and non tender Neuro: alert, awake, oriented x 3 On examination of the lower extremities the limb lengths are equal. Thigh and calf are soft and nontender. On examination of the LEFT hip the dressings are clean, dry and intact. The dressings are changed by me. There is no soakage of the dressings. The wound looks clean and healthy. No evidence of any infection or other complications is noted. Distal pulses are 1+. Bilateral lower extremity edema noted. Distal sensation is intact to light touch throughout. No motor deficits noted distally. - Urinary Catheter Management Falcon Cath placed during this visit: no Progress Note: A&P (1) Closed left hip fracture Status: Acute (2) Hypertension Status: Acute (3) Diabetic peripheral neuropathy Status: Acute (4) Hemiplegia of left nondominant side as late effect of cerebral infarction Status: Acute (5) Obesity (BMI 30.0-34.9) Status: Acute (6) Vascular dementia Status: Acute (7) History of arteriosclerotic cardiovascular disease Status: Acute (8) Peripheral edema Status: Acute (9) Diabetes mellitus type 2 in obese Status: Acute (10) Paroxysmal atrial fibrillation Status: Acute Assessment and Plan for All Diagnoses:: I have reviewed the clinical findings and progress with the patient and her . Patient is doing fairly well and reports no problems. Patient is not mobilizing well and I have advised her to work harder with physical therapy. Continue abduction pillow when in bed and continue standard precautions for the posterior approach hip replacement. Case management looking into discharge planning. Patient can be discharged from an orthopedic standpoint. Follow-up in my office in 2 weeks? time with check x-ray. Please feel free to call our office at [phone] for any orthopaedic questions. Continue medical management as per Dr. Kimble.
--- NOTE | 2020-09-20 14:10 | PC.NURSE ---
pt to room 279 at this time per bed
--- NOTE | 2020-09-20 14:42 | PC.NURSE ---
Called report to Khoi Ferrari RN
[2020-09-20 16:19] VITALS: O2SAT 95
[2020-09-20 16:27] VITALS: BP 149/68; PULSE 88; RESP 18; TEMP 37.3; O2SAT 95
[2020-09-20 16:59] LABS: POC Glucose,Bedside 250 (70-110)
[2020-09-20 20:23] LABS: POC Glucose,Bedside 226 (70-110)
[2020-09-20 20:30] VITALS: BP 150/60; PULSE 91; RESP 17; TEMP 38.4; O2SAT 90; O2SAT 91
[2020-09-20 21:45] VITALS: TEMP 38.3
--- NOTE | 2020-09-20 22:00 | XR_ITS ---
PROCEDURE INFORMATION: Exam: XR Chest Exam date and time: 09/20/20 10:00 PM Age: 65 years old Clinical indication: Patient HX: Patient recently had hip surgery, now she has a fever. TECHNIQUE: Imaging protocol: XR of the chest. Views: 1 view. COMPARISON: CR XR CHEST PORTABLE 09/16/20 04:43 PM FINDINGS: Lungs: Right mid lung subsegmental atelectasis. Pleural spaces: Unremarkable. No pleural effusion. No pneumothorax. Heart/Mediastinum: Unremarkable. No cardiomegaly. Bones/joints: Unremarkable. IMPRESSION: Right mid lung subsegmental atelectasis.
[2020-09-20 23:26] VITALS: BP 152/87; PULSE 80; RESP 18; TEMP 37.1; O2SAT 96
[2020-09-20 23:50] LABS: Microscopic, Urine URINE MICROSCOPIC (MICROSCOPIC)
[2020-09-20 23:55] LABS: Appearance,Urine CLEAR (Clear); Bilirubin,Urine Negative (Negative); Blood, Urine 3+ (Negative); Color,Urine YELLOW (Yellow); Glucose,Urine (UA) 2+ (Negative); Ketones,Urine Negative (Negative); Leukocyte Esterase,Urine Negative (Negative); Nitrate,Urine Negative (Negative); Protein,Urine 2+ (Negative); Specific Gravity, Urine 1.025 (1.005-1.030); Urobilinogen,Urine 0.2 EU/dl (0.2)
[2020-09-21 00:09] LABS: Bacteria,Urine 1+ /lpf; Mucus,Urine 1+ /lpf; RBC,Urine TNTC #/hpf (0-3)
[2020-09-21 04:42] VITALS: BP 147/72; PULSE 73; RESP 17; TEMP 36.7; O2SAT 97
--- NOTE | 2020-09-21 04:44 | PC.NURSE ---
pt has rested well throughout shift, pt is more alert this am, remains oriented to person and place. pt unsure of time, pt did have a temperature of 101.0 at 1999 last night at which time the md was notiified see provider notification. pt has since been afrebrile, lungs remain clear, use of incentive spirometer encouraged when nurse in room pt has to be reeducated with each use, heart rate regular, no acute distress noted at this time, vss, will continue to monitor.
[2020-09-21 06:13] LABS: POC Glucose,Bedside 234 (70-110)
[2020-09-21 06:42] LABS: Basophils # 0.1 K/mm3 (0-0.2); Basophils % 0.3 % (0.1-2.0); Eosinophils # 0.3 K/mm3 (0.0-0.4); Eosinophils % 2.4 % (0.1-12.0); Hemoglobin 9.4 g/dL (12.2-16.2); Lymphocytes # 2.5 K/mm3 (0.7-4.5); Lymphocytes % 17.6 % (10-50); Mean Corpuscular HGB Conc 32.4 g/dL (31.8-35.4); Mean Corpuscular Hemoglobin 28.7 pg (27.0-31.2); Mean Corpuscular Volume 88.6 fl (81-99); Mean Platelet Volume 8.9 fl (7.4-10.4); Monocytes # 0.8 K/mm3 (0.1-1.0); Monocytes % 5.7 % (1.7-9.3); Neutrophils # 10.5 K/mm3 (1.8-7.8); Platelet Count 251 K/mm3 (142-424); Red Blood Count 3.27 M/mm3 (4.20-5.40); Red Cell Distribution Width 13.4 % (11.5-17.5); White Blood Count 14.2 K/mm3 (4.8-10.8)
[2020-09-21 07:11] LABS: Chloride 104 mmol/L (98-107); Sodium 137 mmol/L (136-145)
[2020-09-21 07:14] LABS: Blood Urea Nitrogen 27 mg/dl (7-17); Creatinine Clearance Estimated 60 mL/min (50-200); Estimated Glomerular Filt Rate 38 ml/min (>60); GFR (African American) 46 ML/MIN (>60)
[2020-09-21 07:15] LABS: Calcium 8.9 mg/dl (8.4-10.2); Carbon Dioxide 27 mmol/L (22.0-30.0); Glucose 264 mg/dl (74-100)
--- NOTE | 2020-09-21 07:49 | HMH.ACPN2 ---
Internal Medicine - PN: Subj *Date: 09/21/20 *Time: 07:49 Interval history: Patient has no complaints this morning. Overnight she had a fever to 101. Despite emphasis on the incentive spirometer yesterday patient is not using it very frequently. She denies cough or shortness of breath. She remains on Rocephin for her E. coli UTI. She does complain of pain in the left hip radiating down the leg this morning. Exam Vital signs and Labs for Last 24 Hours: Temp Pulse Resp BP Pulse Ox 98.1 F 73 17 147/72 H 97 09/21/20 04:42 09/21/20 04:42 09/21/20 04:42 09/21/20 04:42 09/21/20 04:42 Laboratory Results - last 24 hr 09/20/20 11:31: POC Glucose 382 H* 09/20/20 16:52: POC Glucose 250 H 09/20/20 20:12: POC Glucose 226 H 09/20/20 23:20: Urine Color Yellow, Urine Appearance Clear, Urine pH 6.0, Ur Specific [place] 1.025, Urine Protein 2+, Urine Glucose (UA) 2+, Urine Ketones Negative, Urine Blood 3+, Urine Nitrate Negative, Urine Bilirubin Negative, Urine Urobilinogen 0.2, Ur Leukocyte Esterase Negative, Urine RBC Tntc, Urine WBC 3-5, Ur Squamous Epith Cells 3-5, Urine Bacteria 1+, Urine Mucus 1+ 09/21/20 05:55: POC Glucose 234 H 09/21/20 06:13: WBC 14.2 H, RBC 3.27 L, Hgb 9.4 L, Hct 29.0 L, MCV 88.6, MCH 28.7, MCHC 32.4, RDW 13.4, Plt Count 251, MPV 8.9, Neut % (Auto) 74.0, Lymph % (Auto) 17.6, [place] % (Auto) 5.7, Eos % (Auto) 2.4, Baso % (Auto) 0.3, Neut # (Auto) 10.5 H, Lymph # (Auto) 2.5, [place] # (Auto) 0.8, Eos # (Auto) 0.3, Baso # (Auto) 0.1 09/21/20 06:13: Sodium 137, Potassium 4.0, Chloride 104, Carbon Dioxide 27, BUN 27 H, Creatinine 1.40 H, Estimated Creat Clear 60, Estimated GFR 38 L, Est GFR ( Amer) 46 L, Glucose 264 H D, Calcium 8.9 I & O for Last 24 hours: Intake & Output 09/18/20 09/19/20 09/20/20 09/21/20 11:59 11:59 11:59 11:59 Intake Total 1240 / 1240 1500 / 1500 1080 / 1080 120 / 120 Output Total 1900 / 1900 1400 / 1400 200 / 200 1900 / 1900 Balance -660 / -660 100 / 100 880 / 880 -1780 / -1780 Weight 202 lb 13.204 oz 205 lb 6 oz Radiology Reports for the Last 24 Hours: Chest x-ray reviewed as well as report. - Constitutional no acute distress - *Routine Respiratory Exam Present: CTA bilaterally - *Routine Cardiovascular Exam Present: RRR - *Routine Abdominal Exam Present: soft, normoactive bowel sounds. Absent: tenderness - *Routine Extremities Exam Comments: Patient has tenderness in the proximal lateral thigh extending down to the knee. No tenderness around the incision. - *Routine Skin Exam Present: intact, dry. Absent: erythema - *Routine Neurological Exam Present: alert, oriented X3 Assessment and Plan (1) Closed left hip fracture Status: Acute Category: Medical Code(s): S72.002A - Fracture of unspecified part of neck of left femur, initial encounter for closed fracture (2) E. coli UTI Status: Acute Category: Medical Code(s): N39.0 - Urinary tract infection, site not specified; B96.20 - Unspecified Escherichia coli [E. coli] as the cause of diseases classified elsewhere (3) Hypertension Status: Acute Category: Medical Code(s): I10 - Essential (primary) hypertension (4) Diabetic peripheral neuropathy Status: Acute Category: Medical Code(s): E11.42 - Type 2 diabetes mellitus with diabetic polyneuropathy (5) Hemiplegia of left nondominant side as late effect of cerebral infarction Status: Acute Category: Medical Code(s): I69.354 - Hemiplegia and hemiparesis following cerebral infarction affecting left non-dominant side (6) Obesity (BMI 30.0-34.9) Status: Acute Category: Medical Code(s): E66.9 - Obesity, unspecified (7) Vascular dementia Status: Acute Category: Medical Code(s): F01.50 - Vascular dementia without behavioral disturbance (8) History of arteriosclerotic cardiovascular disease Status: Acute Category: Medical Code(s): Z86.79 - Personal history of other diseases of the circulatory system
--- NOTE | 2020-09-21 07:54 | HMH.DCSUM ---
General - General Admission date:: 09/16/20 HPI HPI: 65-year-old white female status post stroke, with vascular dementia and some functional issues who uses a cane to walk at home who was leaving her home yesterday and fell down the steps of her porch, falling and fracturing the left femoral neck of her left hip. Brought to the emergency department where this was diagnosed. Admitted to hospital for further evaluation and orthopedic consultation. This morning she feels well, denies pain and reports that the pain medicine is doing a good job keeping her pain under control. No family was in the room this morning. Hospital Course Hospital Course: Patient was admitted for left hip fracture. Because patient takes Xarelto for history of atrial fibrillation this medicine needed to be held and surgery was delayed for 48 hours. On September 18 patient underwent bipolar hemiarthroplasty by Dr. Roberts. Physical therapy was begun postoperatively per protocol. Patient had a urinary tract infection identified on admission and was started on Rocephin. This was continued during hospitalization with culture ultimately growing E. coli sensitive to Rocephin. At discharge patient will be transition to Omnicef Patient has a history of prior right cerebral stroke leaving her with left hemiplegia which does complicate patient's ability to recover from injury. Blood pressure was elevated during hospitalization and patient was begun on lisinopril in addition to continuing her daily Lasix. Patient has long history of diabetes mellitus and takes 70/30 insulin. This was restarted in the middle of hospitalization while patient also stayed on sliding scale insulin. Patient had a postoperative fever while on Rocephin for her E. coli urinary tract infection. Chest x-ray showed the presence of right middle lobe atelectasis. Patient seldom use incentive spirometry and required frequent reminder. This was continued throughout hospitalization. Rhogam Administration: Not Indicated Objective Vital signs: Temp Pulse Resp BP Pulse Ox 98.1 F 73 17 147/72 H 97 09/21/20 04:42 09/21/20 04:42 09/21/20 04:42 09/21/20 04:42 09/21/20 04:42 no acute distress - *Routine Respiratory Exam Present: CTA bilaterally - *Routine Cardiovascular Exam Present: RRR - *Routine Abdominal Exam Present: soft, normoactive bowel sounds. Absent: tenderness Results Labs on day of discharge: Labs from last 24 hours 09/21/20 09/21/20 09/21/20 06:13 06:13 05:55 WBC 14.2 H RBC 3.27 L Hgb 9.4 L Hct 29.0 L MCV 88.6 MCH 28.7 MCHC 32.4 RDW 13.4 Plt Count 251 MPV 8.9 Neut % (Auto) 74.0 Lymph % (Auto) 17.6 [place] % (Auto) 5.7 Eos % (Auto) 2.4 Baso % (Auto) 0.3 Neut # (Auto) 10.5 H Lymph # (Auto) 2.5 [place] # (Auto) 0.8 Eos # (Auto) 0.3 Baso # (Auto) 0.1 Sodium 137 Potassium 4.0 Chloride 104 Carbon Dioxide 27 BUN 27 H Creatinine 1.40 H Estimated Creat Clear 60 Estimated GFR 38 L Est GFR ( Amer) 46 L Glucose 264 H D POC Glucose 234 H Calcium 8.9 Urine Color Urine Appearance Urine pH Ur Specific [place] Urine Protein Urine Glucose (UA) Urine Ketones Urine Blood Urine Nitrate Urine Bilirubin Urine Urobilinogen Ur Leukocyte Esterase Urine RBC Urine WBC Ur Squamous Epith Cells Urine Bacteria Urine Mucus 09/20/20 09/20/20 09/20/20 23:20 20:12 16:52 WBC RBC Hgb Hct MCV MCH MCHC RDW Plt Count MPV Neut % (Auto) Lymph % (Auto) [place] % (Auto) Eos % (Auto) Baso % (Auto) Neut # (Auto) Lymph # (Auto) [place] # (Auto) Eos # (Auto) Baso # (Auto) Sodium Potassium Chloride Carbon Dioxide BUN Creatinine Estimated Creat Clear Estimated GFR Est GFR ( Amer) Glucose POC Glucose 226
[2020-09-21 08:10] VITALS: BP 160/68; PULSE 80; RESP 18; TEMP 37.1; O2SAT 98
--- NOTE | 2020-09-21 10:32 | HMH.ACPN ---
Internal Medicine - PN: Subj *Date: 09/21/20 *Time: 10:32 Exam Vital signs and Labs for Last 24 Hours: Temp Pulse Resp BP Pulse Ox 98.7 F 80 18 160/68 H 98 09/21/20 08:10 09/21/20 08:10 09/21/20 08:10 09/21/20 08:10 09/21/20 08:10 Laboratory Results - last 24 hr 09/20/20 11:31: POC Glucose 382 H* 09/20/20 16:52: POC Glucose 250 H 09/20/20 20:12: POC Glucose 226 H 09/20/20 23:20: Urine Color Yellow, Urine Appearance Clear, Urine pH 6.0, Ur Specific [place] 1.025, Urine Protein 2+, Urine Glucose (UA) 2+, Urine Ketones Negative, Urine Blood 3+, Urine Nitrate Negative, Urine Bilirubin Negative, Urine Urobilinogen 0.2, Ur Leukocyte Esterase Negative, Urine RBC Tntc, Urine WBC 3-5, Ur Squamous Epith Cells 3-5, Urine Bacteria 1+, Urine Mucus 1+ 09/21/20 05:55: POC Glucose 234 H 09/21/20 06:13: WBC 14.2 H, RBC 3.27 L, Hgb 9.4 L, Hct 29.0 L, MCV 88.6, MCH 28.7, MCHC 32.4, RDW 13.4, Plt Count 251, MPV 8.9, Neut % (Auto) 74.0, Lymph % (Auto) 17.6, [place] % (Auto) 5.7, Eos % (Auto) 2.4, Baso % (Auto) 0.3, Neut # (Auto) 10.5 H, Lymph # (Auto) 2.5, [place] # (Auto) 0.8, Eos # (Auto) 0.3, Baso # (Auto) 0.1 09/21/20 06:13: Sodium 137, Potassium 4.0, Chloride 104, Carbon Dioxide 27, Anion Gap 60.0 H, BUN 27 H, Creatinine 1.40 H, Estimated Creat Clear 60, Estimated GFR 38 L, Est GFR ( Amer) 46 L, Glucose 264 H D, Calcium 8.9 I & O for Last 24 hours: Intake & Output 09/18/20 09/19/20 09/20/20 09/21/20 23:59 23:59 23:59 23:59 Intake Total 900 / 900 1440 / 1440 360 / 360 Output Total 1000 / 1000 1600 / 1600 1000 / 1900 900 / 900 Balance -100 / -100 -160 / -160 -640 / -1540 -900 / -900 Weight 92 kg 93.157 kg Assessment and Plan (1) Closed left hip fracture Status: Acute Category: Medical Code(s): S72.002A - Fracture of unspecified part of neck of left femur, initial encounter for closed fracture (2) E. coli UTI Status: Acute Category: Medical Code(s): N39.0 - Urinary tract infection, site not specified; B96.20 - Unspecified Escherichia coli [E. coli] as the cause of diseases classified elsewhere (3) Hypertension Status: Acute Category: Medical Code(s): I10 - Essential (primary) hypertension (4) Diabetic peripheral neuropathy Status: Acute Category: Medical Code(s): E11.42 - Type 2 diabetes mellitus with diabetic polyneuropathy (5) Hemiplegia of left nondominant side as late effect of cerebral infarction Status: Acute Category: Medical Code(s): I69.354 - Hemiplegia and hemiparesis following cerebral infarction affecting left non-dominant side (6) Obesity (BMI 30.0-34.9) Status: Acute Category: Medical Code(s): E66.9 - Obesity, unspecified (7) Vascular dementia Status: Acute Category: Medical Code(s): F01.50 - Vascular dementia without behavioral disturbance (8) History of arteriosclerotic cardiovascular disease Status: Acute Category: Medical Code(s): Z86.79 - Personal history of other diseases of the circulatory system (9) Peripheral edema Status: Acute Category: Medical Code(s): R60.9 - Edema, unspecified (10) Diabetes mellitus type 2 in obese Status: Acute Category: Medical Code(s): E11.69 - Type 2 diabetes mellitus with other specified complication; E66.9 - Obesity, unspecified (11) Paroxysmal atrial fibrillation Status: Acute Category: Medical Code(s): I48.0 - Paroxysmal atrial fibrillation (12) Postoperative fever Status: Acute Category: Medical Code(s): R50.82 - Postprocedural fever The patient's infection will respond to the chosen ABx?: Yes Is the patient receiving the right drug, dose, and route?: Yes Could a more targeted ABx be ordered?: No (ROCEPHIN FOR E COLI IN URINE)
[2020-09-21 11:59] LABS: POC Glucose,Bedside 189 (70-110)
[2020-09-21 12:26] VITALS: BP 150/64; PULSE 75; RESP 18; TEMP 36.9; O2SAT 95
--- NOTE | 2020-09-21 14:33 | HMH.ORTHPN ---
Subjective Date: 09/21/20 Time: 14:00 Principal diagnosis: Status post hemiarthroplasty, left hip Interval history: Patient is status post hemiarthroplasty, left hip, post op day #3. Patient is lying down on the bed and says she is doing well. Patient has minimal pain and says it's well-controlled with medication. No history of any nausea or vomiting. I understand she is not mobilizing well and needs maximum assistance for transfers. PN: Obj Ex Vital signs: Temp Pulse Resp BP Pulse Ox 98.4 F 75 18 150/64 H 95 09/21/20 12:26 09/21/20 12:26 09/21/20 12:26 09/21/20 12:26 09/21/20 12:26 Narrative: Laboratory Results - last 24 hr 09/20/20 16:52: POC Glucose 250 H 09/20/20 20:12: POC Glucose 226 H 09/20/20 23:20: Urine Color Yellow, Urine Appearance Clear, Urine pH 6.0, Ur Specific [place] 1.025, Urine Protein 2+, Urine Glucose (UA) 2+, Urine Ketones Negative, Urine Blood 3+, Urine Nitrate Negative, Urine Bilirubin Negative, Urine Urobilinogen 0.2, Ur Leukocyte Esterase Negative, Urine RBC Tntc, Urine WBC 3-5, Ur Squamous Epith Cells 3-5, Urine Bacteria 1+, Urine Mucus 1+ 09/21/20 05:55: POC Glucose 234 H 09/21/20 06:13: WBC 14.2 H, RBC 3.27 L, Hgb 9.4 L, Hct 29.0 L, MCV 88.6, MCH 28.7, MCHC 32.4, RDW 13.4, Plt Count 251, MPV 8.9, Neut % (Auto) 74.0, Lymph % (Auto) 17.6, [place] % (Auto) 5.7, Eos % (Auto) 2.4, Baso % (Auto) 0.3, Neut # (Auto) 10.5 H, Lymph # (Auto) 2.5, [place] # (Auto) 0.8, Eos # (Auto) 0.3, Baso # (Auto) 0.1 09/21/20 06:13: Sodium 137, Potassium 4.0, Chloride 104, Carbon Dioxide 27, Anion Gap 60.0 H, BUN 27 H, Creatinine 1.40 H, Estimated Creat Clear 60, Estimated GFR 38 L, Est GFR ( Amer) 46 L, Glucose 264 H D, Calcium 8.9 09/21/20 11:51: POC Glucose 189 H Microbiology 09/16/20 17:50 Urine,Catheterized Urine Culture - Final Escherichia coli Exam General appearance: alert, active, awake, no acute distress Cardiovascular: regular rate & rhythm, normal peripheral pulses Respiratory: No respiratory distress noted, speaks in full sentences ABD: soft and non tender Neuro: alert, awake, oriented x 3 On examination of the lower extremities the limb lengths are equal. Thigh and calf are soft and nontender. On examination of the LEFT hip the dressings are clean, dry and intact. There is no soakage of the dressings. No evidence of any infection or other complications is noted. Distal pulses are 1+. Distal sensation is intact to light touch throughout. No motor deficits noted distally. She has bilateral pedal edema. - Urinary Catheter Management Falcon Cath placed during this visit: no Progress Note: A&P (1) Closed left hip fracture Status: Acute (2) E. coli UTI Status: Acute (3) Hypertension Status: Acute (4) Diabetic peripheral neuropathy Status: Acute (5) Hemiplegia of left nondominant side as late effect of cerebral infarction Status: Acute (6) Obesity (BMI 30.0-34.9) Status: Acute (7) Vascular dementia Status: Acute (8) History of arteriosclerotic cardiovascular disease Status: Acute (9) Peripheral edema Status: Acute (10) Diabetes mellitus type 2 in obese Status: Acute (11) Paroxysmal atrial fibrillation Status: Acute (12) Postoperative fever Status: Acute Assessment and Plan for All Diagnoses:: I have reviewed the clinical findings and progress with the patient and her . I have also discussed about her mobility issues with the physical therapist. Patient apparently is not making any effort to get out of bed and try to walk with physical therapy. She had a poor mobility prior to the fall and has history of CVA affecting her left side. Given the situation and her lack of effort, she may never walk again and be wheelchair-bound. However, I have encouraged her to participate in physical therapy with more effort and enthusiasm. Continue DVT prophylaxis. Continue abduction pillow when in bed and
[2020-09-21 16:00] VITALS: BP 144/89; PULSE 88; RESP 18; TEMP 37.2; O2SAT 95
--- NOTE | 2020-09-21 16:35 | PC.NURSE ---
PT HAS RESTED WELL THIS SHIFT, PAIN CONTROLLED WITH PRN MEDICATION. VITAL SIGNS STABLE, AFEBRILE. PT A&O X 4 AT THIS TIME. LUNGS CLEAR, HEART RATE REGULAR. 1+ EDEMA TO BLE, DRESSING TO LEFT HIP C/D/I. PT USING INCENTIVE SPIROMETER HOURLY, RN AT BEDSIDE. ABDUCTION PILLOW IN PLACE, WHILE IN BED. VOIDING WITHOUT DIFFICULTY. BOWEL SOUNDS ACTIVE X 4 QUADS, NO BOWEL MOVEMENT. PT PASSING FLATUS. TOLERATED UP TO CHAIR, MAX ASSIST. NO ACUTE CHANGES. CALL LIGHT WITHIN REACH. WILL CONTINUE TO MONITOR
--- NOTE | 2020-09-21 16:41 | PC.NURSE ---
FAMILY NOTIFIED AT THIS TIME THAT PT WILL BE TRANSFERRED TO [facility] LATER THIS EVENING
[2020-09-21 17:15] LABS: POC Glucose,Bedside 239 (70-110)
== END 2020-09-21 17:40 | DRG 522 ==
LOC: ER 16:53 → 2ND 19:16 → OB 09-20 13:55
PROVIDERS: Orthopaedic Surgery; Admitting Provider Internal Medicine Adolescent Medicine; Emergency Provider Internal Medicine; PCP Family Medicine; Visit Provider Family Medicine
PROC: 0SRS03A Replacement of Left Hip Joint, Femoral Surface with Ceramic Synthetic Substitute, Uncemented, Open Approach (ICD-10-PCS; CPT 27236; principal; 2020-09-18 15:35)
DX: S72.012A Unspecified intracapsular fracture of left femur, initial encounter for closed fracture (principal); I69.354 Hemiplegia and hemiparesis following cerebral infarction affecting left non-dominant side; N39.0 Urinary tract infection, site not specified; Z79.01 Long term (current) use of anticoagulants; F01.50 Vascular dementia, unspecified severity, without behavioral disturbance, psychotic disturbance, mood disturbance, and anxiety; W10.8XXA Fall (on) (from) other stairs and steps, initial encounter; Y92.018 Other place in single-family (private) house as the place of occurrence of the external cause; Z79.4 Long term (current) use of insulin; I48.0 Paroxysmal atrial fibrillation; E11.42 Type 2 diabetes mellitus with diabetic polyneuropathy
CPT/HCPCS: 27236; 36415; 70450; 71045; 72125; 72192; 73502; 73562; 73610; 73700; 80048; 80053; 81001; 82962; 83036; 85007; 85025; 86850; 87040; 87086; 87088; 87186; 87581; 87633; 87798; 93005; 93306; 96374; 96375; 97110; 97163; 97166; 97530; 99284; A4649; C1713; C1776; J0131; J2405; J3370

== ENCOUNTER 2020-10-03 13:01 | Emergency (ER) | payer MEDICARE, OTHER, SELFPAY ==
[2020-10-03] VITALS (9 sets, daily range): BP systolic 120–137; BP diastolic 41–94; PULSE 55–93; RESP 15–18; TEMP 36.7; O2SAT 94–98; BMI 34.4
--- NOTE | 2020-10-03 13:08 | XR_ITS ---
PROCEDURE: XR HIP LT 2-3V W/PELVIS CLINICAL INDICATION: fall Posttraumatic pain COMPARISON: CR XR HIP LT 2-3V W/PELVIS from 09/16/2020 CR XR HIP LT 2-3V W/PELVIS from 09/18/2020 FINDINGS: Status post left hip hemiarthroplasty. There is good alignment with no acute fracture or dislocation evident. Scattered areas of increased soft tissue density are present around the left femoral neck and hip and may be due to residual from antibiotic beads. There is a moderate amount of retained colonic feces IMPRESSION: Status post left hip hemiarthroplasty with good alignment. No acute finding Dictated by: Tremayne De La Torre MD 10/03/2020 14:49 Tremayne De La Torre MD in [place] 10/03/2020 14:49
--- NOTE | 2020-10-03 13:08 | XR_ITS ---
PROCEDURE: XR KNEE LT 2V CLINICAL INDICATION: fall Pain COMPARISON: CR XR KNEE LT 3V from 09/16/2020 FINDINGS: Mild tricompartmental osteoarthritic changes are. No acute fracture of the knee. Surgical clips are present along the medial aspect of the knee joint. Small enthesophyte noted along superior patellar region. IMPRESSION: Mild osteoarthritis, no acute fracture Dictated by: Tremayne De La Torre MD 10/03/2020 14:46 Tremayne De La Torre MD in [place] 10/03/2020 14:46
--- NOTE | 2020-10-03 15:01 | HMH.EDGENADL ---
ED Disposition Clinical Impression: Left hip pain Fall from wheelchair Qualifiers: Encounter type: initial encounter Qualified Code(s): W05.0XXA - Fall from non-moving wheelchair, initial encounter Left knee pain Qualifiers: Chronicity: acute Qualified Code(s): M25.562 - Pain in left knee Disposition: Home, Self-Care Condition on Discharge: Good Instructions: How to Prevent Falls Additional Instructions: Follow-up with primary care provider or your orthopedic doctor for further problems with hip and knee. Referrals: Hugo Kimble MD [Primary Care Provider] - - Critical Care Critical Care Time: No Attestation: On 10/03/20, the high probability of a clinically significant, sudden or life threatening deterioration of the following system(s) required my full and direct attention, intervention and personal management. The time I documented below is in addition to time spent performing reported procedures but includes the following listed in this critical care notation. Medical Decision Making - Volodymyr Inquiry Pt receiving controlled substance: No Vital Signs: 10/03/20 13:01 10/03/20 13:30 10/03/20 14:00 Temperature 98.0 F Temperature Source Oral Pulse Rate 59 L 58 L Pulse Rate [Left Radial] 93 H Respiratory Rate 18 18 Blood Pressure 122/55 L 136/66 Blood Pressure [Right Arm] 122/41 L Blood Pressure Mean 69 84 Blood Pressure Mean [Right Arm] 68 Blood Pressure Source [Right Arm] Automatic Cuff Blood Pressure Position [Right Arm] Sitting 02 Sat by Pulse Oximetry 97 94 L 97 Oxygen Delivery Method Room Air 10/03/20 14:31 Temperature Temperature Source Pulse Rate 60 Pulse Rate [Left Radial] Respiratory Rate Blood Pressure 134/53 L Blood Pressure [Right Arm] Blood Pressure Mean 80 Blood Pressure Mean [Right Arm] Blood Pressure Source [Right Arm] Blood Pressure Position [Right Arm] 02 Sat by Pulse Oximetry 96 Oxygen Delivery Method - Radiology Data #1 Image(s): Hip, Knee Image Reviewed: Yes I have reviewed radiologist's interpretation PROCEDURE: XR KNEE LT 2V CLINICAL INDICATION: fall Pain COMPARISON: CR XR KNEE LT 3V from 09/16/2020 FINDINGS: Mild tricompartmental osteoarthritic changes are. No acute fracture of the knee. Surgical clips are present along the medial aspect of the knee joint. Small enthesophyte noted along superior patellar region. IMPRESSION: Mild osteoarthritis, no acute fracture Dictated by: Tremayne De La Torre MD 10/03/2020 14:46 Tremayne De La Torre MD in [place] 10/03/2020 14:46 PROCEDURE: XR HIP LT 2-3V W/PELVIS CLINICAL INDICATION: fall Posttraumatic pain COMPARISON: CR XR HIP LT 2-3V W/PELVIS from 09/16/2020 CR XR HIP LT 2-3V W/PELVIS from 09/18/2020 FINDINGS: Status post left hip hemiarthroplasty. There is good alignment with no acute fracture or dislocation evident. Scattered areas of increased soft tissue density are present around the left femoral neck and hip and may be due to residual from antibiotic beads. There is a moderate amount of retained colonic feces IMPRESSION: Status post left hip hemiarthroplasty with good alignment. No acute finding Dictated by: Tremayne De La Torre MD 10/03/2020 14:49 Tremayne De La oTrre MD in [facility] 10/03/2020 14:49 General Adult HPI - General Chief complaint: PAIN Stated complaint: fall Time Seen by Provider: 10/03/20 15:01 Mode of Arrival: EMS Limitations: Physical Limitations Description of Symptoms (Recalled from ER Triage Doc. by RN): c/o left hip/knee pain. Pt states that she was trying to readjust herself in her wheelchair when she slid out of the chair. Prior left surgery within the last month. - History of Present Illness HPI narrative: Brought in by ambulance. [facility]. states that personnel explained to him that her left lower extremity was at an odd angle s
--- NOTE | 2020-10-03 16:45 | PC.NURSE ---
Addendum entered by Rosalind Mcbride, EMT 10/03/20 16:46: called at 1620 Original Note: called [facility] for transfer back to [facility]
== END 2020-10-03 17:30 | disposition home or self-care (01) ==
PROVIDERS: Emergency Provider Emergency Medicine; PCP Family Medicine
DX: M25.552 Pain in left hip (principal); M25.562 Pain in left knee; I25.2 Old myocardial infarction; Z87.891 Personal history of nicotine dependence; I25.10 Atherosclerotic heart disease of native coronary artery without angina pectoris; F41.8 Other specified anxiety disorders; E11.9 Type 2 diabetes mellitus without complications; K21.9 Gastro-esophageal reflux disease without esophagitis; I10 Essential (primary) hypertension; E78.5 Hyperlipidemia, unspecified; Z79.899 Other long term (current) drug therapy
CPT/HCPCS: 73502; 73560; 99283

== ENCOUNTER → 2020-10-13 14:45 | Outpatient (CLI) | payer MEDICARE, OTHER, SELFPAY ==
--- NOTE | 2020-10-13 14:57 | XR_ITS ---
PROCEDURE: XR HIP LT 2-3V W/PELVIS CLINICAL INDICATION: s/p LT hip isabel- DOS; 09/18/20 Follow-up surgery COMPARISON: CR XR HIP LT 2-3V W/PELVIS from 10/03/2020 FINDINGS: Status post left hip hemiarthroplasty with good alignment of the prosthesis and no prosthesis malfunction apparent. There is some minimal heterotopic ossification along the greater and lesser trochanters and in the soft tissues of the left hip laterally. IMPRESSION: Status post left hip hemiarthroplasty with good alignment. Mild heterotopic ossification along the greater and lesser trochanter and in the soft tissues of the left hip laterally Dictated by: Tremanye De La Torre MD 10/13/2020 15:28 Tremayne De La Torre MD in [facility] 10/13/2020 15:28
== END ==
PROVIDERS: PCP Family Medicine; Visit Provider Orthopaedic Surgery
DX: S72.002A Fracture of unspecified part of neck of left femur, initial encounter for closed fracture (principal)
CPT/HCPCS: 73502

== ENCOUNTER → 2020-11-03 14:19 | Outpatient (CLI) | payer MEDICARE, OTHER, SELFPAY ==
--- NOTE | 2020-11-03 14:28 | XR_ITS ---
PROCEDURE: XR HIP LT 2-3V W/PELVIS CLINICAL INDICATION: s/p LT hip isabel COMPARISON: CR XR HIP LT 2-3V W/PELVIS from 10/13/2020 FINDINGS: Left hip hemiarthroplasty is noted. No periprosthetic fractures are noted. Bone density is normal. Heterotopic ossification noted adjacent to the greater trochanter. No significant soft tissue abnormality. IMPRESSION: Left hip arthroplasty. No acute abnormality. Dictated by: Ana Roberts 11/03/2020 15:45 Ana Roberts in [facility] 11/03/2020 15:45
== END ==
PROVIDERS: PCP Family Medicine; Visit Provider Orthopaedic Surgery
DX: Z09 Encounter for follow-up examination after completed treatment for conditions other than malignant neoplasm (principal)
CPT/HCPCS: 73502

== ENCOUNTER → 2021-01-31 09:02 | Outpatient (CLI) | payer MEDICARE, OTHER, SELFPAY ==
--- NOTE | 2021-01-31 09:09 | XR_ITS ---
PROCEDURE: XR DEXA AXIAL SKELETON CLINICAL HISTORY: screening COMPARISON: No exams were available for comparison FINDINGS: The right hip BMD is 0.640 with a T-score of -1 point. Radius 33 percent is 0.548 g per cm sq with a T-score of -2.4 The lumbar spine BMD is 0.968 with a T-score of -0.7. IMPRESSION: This patient is considered osteopenic according to the World Health Organization criteria. Bone density is between 10 and 25 percent below young normal. Fracture risk is moderate. Treatment is advised. Based on these results a follow-up exam is recommended in 2 year. Dictated by: Tremayne De La Torre MD 02/01/2021 14:54 Tremayne De La Torre MD in [facility] 02/01/2021 14:54
== END ==
PROVIDERS: PCP Family Medicine; Visit Provider Orthopaedic Surgery
DX: M81.0 Age-related osteoporosis without current pathological fracture (principal)
CPT/HCPCS: 77080

== ENCOUNTER → 2021-02-07 13:37 | Outpatient (CLI) | payer MEDICARE, OTHER, SELFPAY ==
--- NOTE | 2021-02-07 13:41 | XR_ITS ---
PROCEDURE: XR HIP LT 2-3V W/PELVIS CLINICAL INDICATION: s/p left hip isabel COMPARISON: CR XR HIP LT 2-3V W/PELVIS from 11/03/2020 FINDINGS: The patient is post hemiarthroplasty left hip. Again noted is faint heterotopic new bone formation adjacent to the greater trochanter and just beneath the prosthetic head. The medullary stem is well positioned within the proximal femur with no evidence of loosening. IMPRESSION: No acute findings. Dictated by: Dr. Gilbert Echevarria MD 02/07/2021 14:15 Dr. Gilbert Echevarria MD in [facility] 02/07/2021 14:15
== END ==
PROVIDERS: PCP Family Medicine; Visit Provider Orthopaedic Surgery
DX: Z09 Encounter for follow-up examination after completed treatment for conditions other than malignant neoplasm (principal); Z96.642 Presence of left artificial hip joint
CPT/HCPCS: 73502

== ENCOUNTER 2021-05-26 17:15 | Emergency (ER) | payer MEDICARE, OTHER, SELFPAY ==
[2021-05-26 17:15] VITALS: BP 177/87; PULSE 86; RESP 18; TEMP 36.5; O2SAT 98; BMI 32.9
--- NOTE | 2021-05-26 17:26 | ECG_ITS ---
APPROVED REPORT Exam: Resting ECG HR:85 bpm ECG Measurements Heart Rate 85 AXES [place] 153 P 32 QRSd 90 QRS -32 QT 407 T 33 QTc 449 Conclusion SINUS RHYTHM LEFT AXIS DEVIATION [QRS AXIS < -30] S1-S2-S3 PATTERN, CONSISTENT WITH PULMONARY DISEASE, RVH, OR NORMAL VARIANT Late r wave progression UNCONFIRMED REPORT Electronically signed by : Hugo Dorman MD 05/27/2021 14:34:22
--- NOTE | 2021-05-26 17:26 | XR_ITS ---
PROCEDURE INFORMATION: Exam: XR Chest Exam date and time: 05/26/2021 5:26 PM Age: 65 years old Clinical indication: Other: Weakness TECHNIQUE: Imaging protocol: XR of the chest. Views: 1 view. Total images: 1 COMPARISON: CR XR CHEST PORTABLE 09/20/2020 10:03 PM FINDINGS: Lungs: Pulmonary vasculature grossly normal. No gross pulmonary infiltrates or edema pattern. Pleural spaces: No pleural effusion. No pneumothorax. Heart/Mediastinum: Heart size normal. Prior median sternotomy. No tracheal/mediastinal shift. Diaphragm: Mild chronic elevation of the right hemidiaphragm. Bones/joints: No acute osseous abnormalities are identified. Osteopenia. IMPRESSION: No acute thoracic process.
[2021-05-26 17:34] LABS: Basophils # 0.1 K/mm3 (0-0.2); Basophils % 1.4 % (0.1-2.0); Eosinophils # 0.3 K/mm3 (0.0-0.4); Eosinophils % 2.5 % (0.1-12.0); Hematocrit 47.9 % (37.0-47.0); Lymphocytes # 3.1 K/mm3 (0.7-4.5); Lymphocytes % 31.1 % (10-50); Mean Corpuscular HGB Conc 31.4 g/dL (31.8-35.4); Mean Corpuscular Hemoglobin 28.8 pg (27.0-31.2); Mean Corpuscular Volume 91.9 fl (81-99); Mean Platelet Volume 9.4 fl (7.4-10.4); Monocytes # 0.5 K/mm3 (0.1-1.0); Monocytes % 4.6 % (1.7-9.3); Neutrophils # 6.1 K/mm3 (1.8-7.8); Neutrophils % 60.4 % (37.0-80.0); Platelet Count 569 K/mm3 (142-424); Red Blood Count 5.22 M/mm3 (4.20-5.40); Red Cell Distribution Width 14.2 % (11.5-17.5); White Blood Count 10.1 K/mm3 (4.8-10.8)
[2021-05-26 17:35] LABS: Chloride 100 mmol/L (98-107); Sodium 133 mmol/L (136-145)
[2021-05-26 17:36] LABS: Potassium 3.4 mmoL/L (3.5-5.1)
[2021-05-26 17:38] LABS: Alanine Aminotransferase 21 U/L (12-78); Alkaline Phosphatase 192 U/L (38-126); Aspartate Amino Transferase 26 U/L (14-36); Bilirubin,Total 0.7 mg/dl (0.2-1.3); Blood Urea Nitrogen 27 mg/dl (7-17); Creatinine Clearance Estimated 43 mL/min (50-200); Estimated Glomerular Filt Rate 30 ml/min (>60); GFR (African American) 37 ML/MIN (>60)
--- NOTE | 2021-05-26 17:38 | HMH.EDGENADL ---
ED Disposition Condition on Discharge: Fair - Critical Care Critical Care Time: No <Derian Boo - Last Filed: 05/26/21 20:19> Condition on Discharge: Good - Critical Care Critical Care Time: No <Zach Huff - Last Filed: 05/26/21 21:30> Clinical Impression: Chronic left hip pain, Medical non-compliance, Uncontrolled hypertension Chronic back pain Qualifiers: Back pain location: back pain in unspecified location Back pain laterality: unspecified Qualified Code(s): M54.9 - Dorsalgia, unspecified UTI (urinary tract infection) Qualifiers: Urinary tract infection type: site unspecified Hematuria presence: with hematuria Qualified Code(s): N39.0 - Urinary tract infection, site not specified Disposition: Home, Self-Care Instructions: DI for Low Back Pain, DI for High Blood Pressure, DI for Urinary Tract Infection (UTI), DI for Thoracic Back Pain, DI for Hip Pain Additional Instructions: Take all of your medications as prescribed, including your blood pressure medicine. Additional instructions for URINARY TRACT INFECTION: Take antibiotic as prescribed. See your physician in 2-3 days for follow up and culture results. Return immediately if you have an uncontrollable fever greater than 102 degrees, severe back or abdominal pain, inability to urinate, or repetitive vomiting. See Dr. Kimble in his office on Friday, Friday or Friday of this week. Prescriptions: Cefdinir [Omnicef 300mg Capsule] 300 mg PO BID #20 cap Transmission Status: Received by [id number] Referrals: Provider,Referral, [Referring] - Attestation: On 05/26/21, the high probability of a clinically significant, sudden or life threatening deterioration of the following system(s) required my full and direct attention, intervention and personal management. The time I documented below is in addition to time spent performing reported procedures but includes the following listed in this critical care notation. Medical Decision Making - Medical Records Medical records reviewed: Yes: I reviewed the patient's medical records. MR Comment: Reviewed previous troponin levels. She was admitted for DKA in March 2020 and had 3 troponin levels, all of which were elevated. No troponin levels since then. Possibly chronically elevated. - Volodymyr Inquiry Pt receiving controlled substance: No - Lab Data Result diagrams: 05/26/21 17:15 05/26/21 17:15 - Radiology Data #1 Image(s): Chest, T-Spine, L-Spine, Hip Image Reviewed: Yes I have reviewed radiologist's interpretation - CT Data CT Scan: Head Time Received: 19:[address] Reviewed: Yes: I have viewed the radiologist's interpretation - Physician Consults Physician Consulted: Lamin Time: 19:32 Reason -: Pt condition Comment/Response: Discussed all clinical findings and plan/disposition. He prefers that the patient not be admitted to the hospital. Recommends discharging her on antibiotics if second troponin is negative. Can see her in the office on Friday, Friday, or Friday. Encourage compliance with her medications including her blood pressure medication. <Derian Boo - Last Filed: 05/26/21 20:19> - Lab Data Result diagrams: 05/26/21 17:15 05/26/21 17:15 <Zach Huff - Last Filed: 05/26/21 21:30> Vital Signs: 05/26/21 17:15 05/26/21 18:01 Temperature 97.7 F Temperature Source Oral Pulse Rate 75 Pulse Rate [Radial] 86 Respiratory Rate 18 16 Blood Pressure 217/81 H Blood Pressure [Right Arm] 177/87 H Blood Pressure Mean [Right Arm] 117 Blood Pressure Position [Right Arm] Sitting 02 Sat by Pulse Oximetry 98 96 Oxygen Delivery Method Room Air Nasal Cannula - Lab Data Lab Results 05/26/21 17:15: WBC 10.1, RBC 5.22, Hgb 15.0, Hct 47.9 H, MCV 91.9, MCH 28.8, MCHC 31.4 L, RDW 14.2, Plt Count 569 H, MPV 9.4, Neut % (Auto) 60.4, Lymph % (Auto) 31.1, [place] % (Auto) 4.6, Eos % (Auto) 2.5, Baso % (Auto) 1.4, Neut # (Auto) 6.1, Lymph # (Auto) 3.
[2021-05-26 17:39] LABS: Anion Gap 8.4 mEq/L (5-15); Calcium 8.9 mg/dl (8.4-10.2); Carbon Dioxide 28 mmol/L (22.0-30.0); Glucose 349 mg/dl (74-100); Total Protein,Serum 7.1 g/dl (6.3-8.2)
--- NOTE | 2021-05-26 17:40 | PC.NURSE ---
Urine collected and sent to lab
--- NOTE | 2021-05-26 17:53 | CT_ITS ---
PROCEDURE INFORMATION: Exam: CT Head Without Contrast Exam date and time: 05/26/2021 5:53 PM Age: 65 years old Clinical indication: Altered mental status/memory loss; Confusion or disorientation; Additional info: AMS TECHNIQUE: Imaging protocol: Computed tomography of the head without contrast. Total images: 272 Radiation optimization: All CT scans at this facility use at least one of these dose optimization techniques: automated exposure control; mA and/or kV adjustment per patient size (includes targeted exams where dose is matched to clinical indication); or iterative reconstruction. COMPARISON: CT HEAD/BRAIN WO CON 09/16/2020 4:59 PM FINDINGS: Brain: Moderate generalized atrophy. Mild bilateral white matter hypodensities which are nonspecific but most commonly associated with chronic microvascular ischemia in this age group. No extra-axial fluid collections. Mild prominence of the peripheral CSF spaces, felt to be related to generalized atrophy. No evidence of acute intracranial hemorrhage. Chronic encephalomalacia consistent with chronic infarct is again noted in the right basal ganglia distribution and posterior right temporal lobe, unchanged from 09/16/2020.No CT evidence of large territory acute or subacute intracranial ischemia/infarct. MRI would be more sensitive for acute/subacute ischemia if clinically indicated. No intracranial mass lesions. No midline shift or herniation. Cerebral ventricles: Mild compensatory ventriculomegaly secondary to central atrophy. There is also further compensatory expansion of the right lateral ventricle frontal horn distribution related to chronic periventricular encephalomalacia which is unchanged. Paranasal sinuses: Visualized paranasal sinuses are clear. Mastoid air cells: Visualized mastoid air cells are clear. Orbital cavity: Visualized orbital contents demonstrate no acute abnormality. Vasculature: Moderate calcific atherosclerosis. No asymmetric vascular hyperdensities suggestive of acute thrombosis are identified. Bones/joints: The calvarium and visualized facial bones are intact. Hyperostosis frontalis interna incidentally noted. Soft tissues: The scalp and visualized soft tissues demonstrate no acute abnormality. Other findings: The IACs are grossly normal. Partially empty sella configuration incidentally noted. IMPRESSION: 1. No acute intracranial process. No intracranial hemorrhage or mass effect. No significant change from 09/16/2020. 2. Atrophy and chronic microvascular changes consistent with age. Chronic infarcts in the right basal ganglia and posterior right temporal lobe unchanged. 3. Moderate calcific atherosclerosis.
--- NOTE | 2021-05-26 17:53 | XR_ITS ---
PROCEDURE INFORMATION: Exam: XR Thoracic Spine Exam date and time: 05/26/2021 5:53 PM Age: 65 years old Clinical indication: Pain in thoracic spine; With radiculopathy; Bilateral; Additional info: Pain since fall and hip replacement last summer TECHNIQUE: Imaging protocol: XR of the thoracic spine. Views: 2 views. Total images: 2 COMPARISON: SPTHORWO MR thoracic spine wo con 05/14/2018 12:55 PM FINDINGS: Bones/joints: Osteopenia. Normal thoracic spine alignment. No blastic or lytic lesions. Disc space heights are well-maintained. Mild-moderate thoracic spondylosis with anterior and lateral marginal spurring at numerous midthoracic levels. No rib fractures are identified within the [id number]. Soft tissues: No gross paraspinous soft tissue abnormalities. Lungs: Visualized lung franklin are clear. Pleural space: No pleural effusion or pneumothorax is evident within the [id number]. Heart/Mediastinum: Cardiomediastinal silhouette unremarkable. Prior median sternotomy. Vasculature: The aorta demonstrates mild ectasia/tortuosity and moderate calcific atherosclerosis. Other findings: No fractures are evident radiographically. IMPRESSION: 1. No evidence of fracture or traumatic subluxation. 2. Osteopenia and moderate midthoracic spondylosis.
--- NOTE | 2021-05-26 17:53 | XR_ITS ---
PROCEDURE INFORMATION: Exam: XR Lumbosacral Spine Exam date and time: 05/26/2021 5:53 PM Age: 65 years old Clinical indication: Low back pain; Additional info: Pain since hip replaced last summer TECHNIQUE: Imaging protocol: XR of the lumbosacral spine. Views: 2 or 3 views. Total images: 3 COMPARISON: SPLUMBWO MR lumbar spine wo con 05/14/2018 12:55 PM FINDINGS: Bones/joints: Osteopenia. Normal alignment. No compression injuries or other fractures. No blastic or lytic lesions. Slight disc space narrowing at L5-S1 and L3-L4. Moderate facet hypertrophic changes L4-L5 and L5-S1. No gross pars defects. The visualized sacrum/pelvis and SI joints are unremarkable. Soft tissues: No gross soft tissue abnormalities. Gastrointestinal tract: Unremarkable bowel gas pattern. Vasculature: Mild calcific atherosclerosis in the abdominal aorta. IMPRESSION: 1. No acute findings. 2. Osteopenia and mild-moderate osteoarthritic changes.
--- NOTE | 2021-05-26 17:53 | XR_ITS ---
PROCEDURE INFORMATION: Exam: XR Left Hip Exam date and time: 05/26/2021 5:53 PM Age: 65 years old Clinical indication: Hip pain; Left hip; Additional info: Pain since FX last summer TECHNIQUE: Imaging protocol: XR Left hip. Views: 2 or 3 views hip with pelvis when performed. Total images: 3 COMPARISON: CR XR HIP LT 2-3V W/PELVIS 02/07/2021 1:52 PM FINDINGS: Bones/joints: Unipolar left hip arthroplasty without gross hardware complication or change. Osteopenia. No fracture. Right hip joint space and articular surfaces are well maintained. No blastic or lytic lesions. The visualized SI joints, pubic symphysis, and sacrum/pelvis were unremarkable. Soft tissues: No gross soft tissue abnormalities. Other findings: Normal alignment. IMPRESSION: 1. No acute findings. 2. Unipolar left hip arthroplasty without gross hardware complication. 3. Osteopenia.
[2021-05-26 17:54] LABS: Albumin Level 3.4 g/dl (3.5-5.0); Albumin/Globulin Ratio 0.9 (1.1-1.8); Globulin 3.7 g/dL (1.3-3.2)
[2021-05-26 17:55] LABS: Microscopic, Urine URINE MICROSCOPIC (MICROSCOPIC)
[2021-05-26 17:58] LABS: Appearance,Urine CLOUDY (Clear); Blood, Urine 3+ (Negative); Color,Urine RED (Yellow); Glucose,Urine (UA) 2+ (Negative); Ketones,Urine 1+ (Negative); Leukocyte Esterase,Urine 2+ (Negative); Nitrate,Urine POSITIVE (Negative); Protein,Urine 3+ (Negative); Specific Gravity, Urine 1.015 (1.005-1.030)
[2021-05-26 18:00] LABS: Bilirubin,Urine 2+ (Negative)
[2021-05-26 18:01] VITALS: BP 217/81; PULSE 75; RESP 16; O2SAT 96
--- NOTE | 2021-05-26 18:04 | PC.NURSE ---
pt to CT scan at this time
[2021-05-26 18:06] LABS: Bacteria,Urine 2+ /lpf; RBC,Urine TNTC #/hpf (0-3); Squamous Epithelial Cell,Urine Occasional #/hpf (0-5)
[2021-05-26 19:13] LABS: Influenza A, PCR Not Detected (NotDetected); Influenza B, PCR Not Detected (NotDetected)
[2021-05-26 19:17] LABS: Lactic Acid 1.6 mmol/L (0.7-2.1)
[2021-05-26 19:58] LABS: Coronavirus 19, PCR Detected (NotDetected)
[2021-05-26 21:15] LABS: Troponin I 0.09 ng/ml (0.00-0.034)
[2021-05-26 21:57] VITALS: BP 175/99; PULSE 74; RESP 16; TEMP 36.6; O2SAT 98
== END 2021-05-26 22:01 | disposition home or self-care (01) ==
PROVIDERS: Emergency Medicine; Emergency Provider Student in an Organized Health Care Education/Training Program; PCP Family Medicine
DX: M25.552 Pain in left hip (principal); M54.9 Dorsalgia, unspecified; N30.00 Acute cystitis without hematuria; U07.1 COVID-19; I25.10 Atherosclerotic heart disease of native coronary artery without angina pectoris; I25.2 Old myocardial infarction; K21.9 Gastro-esophageal reflux disease without esophagitis; E11.9 Type 2 diabetes mellitus without complications; E78.5 Hyperlipidemia, unspecified; I10 Essential (primary) hypertension; Z87.891 Personal history of nicotine dependence; Z88.0 Allergy status to penicillin; Z88.2 Allergy status to sulfonamides
CPT/HCPCS: 70450; 71045; 72070; 72100; 73502; 80053; 81001; 83605; 84484; 85025; 87040; 87077; 87086; 87186; 93005; 96365; 99283; C9803; J0696; U0003; U0005